=== PATIENT | female | born 1980 | race Caucasian/White ===

== ENCOUNTER 2021-08-11 14:22 | Inpatient (IN) ==
[2021-08-11] MEDS ORDERED: MoRPHine SULFATE 4 MG/ML 1 ML CARP\\VIAL IV STA (14:56)
[2021-08-11] MEDS ORDERED: SODIUM CHLORIDE 0.9% 1000ML 1,000 ML IV STA (14:56)
[2021-08-11] MEDS ORDERED: ONDANSETRON INJ 2 MG/ML 2 ML VIAL IV STA (14:56)
--- NOTE | 2021-08-11 15:00 | Emergency Department Note ---
Impression & Plan Abdominal pain Admission ED Provider Note HPI: The patient is an otherwise healthy 41-year-old female who presents the emergency department the chief complaint of epigastric abdominal pain. Patient states that she developed this pain about 2-1/2 hours prior to arrival to the ED. She states that she went out and had brunch at around noon, states that shortly after finishing her meal she developed a very severe epigastric abdominal pain. She states it does radiate from her epigastrium somewhat up the substernal portion of her chest. States she has not had any vomiting, does feel mildly nauseous, denies any diarrhea. Patient states the pain was persistent and therefore she presented to the emergency department for further evaluation. On arrival here to the ED the patient is hemodynamically stable, she is saturating well on room air, she is in mild distress secondary to epigastric pain. ROS: -GI: Epigastric abdominal pain *10 point review systems was conducted and is otherwise negative unless stated above *Outpatient medications and allergy history reviewed PE: General: Alert, NAD HEENT: Normocephalic, atraumatic, trachea midline Eyes: Extraocular eye movement is intact, no scleral erythema Pulmonary: Clear to auscultation bilaterally, no wheezing Cardio: Regular rate and rhythm GI: Abdomen is soft, moderate epigastric tenderness to palpation : No suprapubic tenderness MSK: No evidence of trauma or malformation of the extremities, no edema Skin: No evidence of rash Neuro: Alert, no focal deficits Psychiatric: Cooperative lunchroom monitor: - An order was placed for continuous cardiac monitoring - Patient was noted to be in sinus rhythm with rate of 75 EKG: Rate: 88 Rhythm: Normal sinus rhythm Intervals: Within normal limits ST changes: No ST elevation Time: 1620 Medical Decision Making: Patient presented to the emergency department with subacute onset epigastric pa in, on arrival to the ED she does have epigastric tenderness. She states this happened shortly prior to arrival to the ED. Lab work was obtained that shows a mild transaminitis, CT imaging is nonspecific, does show some cholelithiasis with some mild pericolic stranding, there is biliary ductal dilation but no clear evidence of cholecystitis. Ultrasound imaging shows evidence of cholelithiasis with common bile duct dilation to 1.1 cm, no evidence of choledocholithiasis as the distal common bile duct is obscured and not clearly visualized. Patient was given morphine and Zofran here in the ED for pain, troponin is negative, EKG does not show any ischemic changes, low suspicion for ACS. I s uspect the patient has choledocholithiasis. I did discuss the case with on-call GI, Dr. Ramez Becerra, he is in agreement for admission and for consultation. [facility] my discussion with Dr. Urena. Patient was in agreement to the above plan and she was admitted in stable condition for further management. * Diagnosis: Abdominal pain, common bile duct dilation, transaminitis * Disposition: Admission Martín Contreras DO Emergency Medicine Past Med/Surg History Medical History (Updated 08/11/21 @ 21:34 by Martín Contreras DO) Depression Surgical History (Updated 11/16/20 @ 08:52 by La Cole) History of wisdom tooth extraction Family History (Updated 11/16/20 @ 08:52 by La Cole) Mother Dyslipidemia Hypertension Father Hypertension Grandmother (Paternal) Hypertension Grandmother (Maternal) Diabetes Heart disease Denies family history of Ovarian cancer Breast cancer Colorectal cancer Social History (Updated 02/19/21 @ 14:35 by Amrita Melissa) Smoking Status: Never smoker Feels Safe at Home: Yes Allergies Allergies Allergy/AdvReac Type Severity Reaction Status Date / Time No Known Allergies Allergy Verified 08/11/21 16:51 Home Meds Home Medications Medication Instructions Recorded Confirmed sertraline 100 mg tablet (Zoloft) 100 mg PO DAILY 11/23/20 08/11/21 calcium carbonate 200 mg calcium 400 mg PO DIRECTED PRN 08/11/21 08/11/21 (500 mg) chewable tablet (Tums) norethindrone 1.5 mg-ethinyl 1 tab PO DAILY 08/11/21 08/11/21 estradiol 30 mcg(21)/iron 75 mg(7) tablet (Junel FE 1.5 (28)) Results & Data (ED) Vital Signs Vital Signs - 24 hr 08/11/21 14:36 08/11/21 14:56 08/11/21 15:40 Temperature 36.7 C Temperature Source Oral Pulse Rate 91 H 72 82 Pulse Rate [Right Finger] Pulse Rate from SpO2 Sensor 83 Pulse Rhythm Regular Regular Pulse Strength Normal Respiratory Rate 20 20 17 Respiratory Effort / Characteristics Non-Labored Spontaneous Respiratory Depth Normal Respiratory Pattern Regular Blood Pressure 143/93 H Blood Pressure [Right Arm] Blood Pressure Mean 109 Blood Pressure Mean [Right Arm] Blood Pressure Position [Right Arm] Pulse Oximetry 98 98 99 Oxygen Delivery Method Room Air Room Air Sepsis Recent Fever Within 48 Hours No Sepsis New/Unexplained Change in Mental Status N/A Sepsis Action Taken by Nursing No Action Required 08/11/21 19:17 Temperature 36.9 C Temperature Source Oral Pulse Rate Pulse Rate [Right Finger] 70 Pulse Rate from SpO2 Sensor Pulse Rhythm Pulse Strength Respiratory Rate 16 Respiratory Effort / Characteristics Non-Labored Spontaneous Respiratory Depth Normal Respiratory Pattern Regular Blood Pressure Blood Pressure [Right Arm] 151/102 H Blood Pressure Mean Blood Pressure Mean [Right Arm] 118 Blood Pressure Position [Right Arm] Lying Pulse Oximetry 98 Oxygen Delivery Method Room Air Sepsis Recent Fever Within 48 Hours Sepsis New/Unexplained Change in Mental Status Sepsis Action Taken by Nursing Laboratory Data Result diagrams: 08/11/21 15:12 08/11/21 15:12 Lab Results 08/11/21 08/11/21 08/11/21 Range/Units 15:12 15:12 15:12 WBC 9.82 (4.8-10.8) K/uL RBC 4.58 (4.2-5.4) M/uL Hgb 14.2 (12.0-16.0) g/dL Hct 40.4 (37-47) % MCV 88.2 (80-100) fL MCH 31.0 (25-34) pg MCHC 35.1 (32-36) g/dL RDW Std Deviation 39.3 (36.4-46.3) fL RDW Coeff of Effie 12.3 (11.5-14.5) % Plt Count 235 (130-400) K/uL MPV 9.8 (7.4-10.4) fL Immature Gran % (Auto) 0.2 % Neut % (Auto) 76.8 % Lymph % (Auto) 14.9 % Pepin % (Auto) 7.2 % Eos % (Auto) 0.8 % Baso % (Auto) 0.1 % Neut # (Auto) 7.54 H (1.4-6.5) K/uL Lymph # (Auto) 1.46 (1.2-3.4) K/uL Pepin # (Auto) 0.71 H (0.11-0.59) K/uL Eos # (Auto) 0.08 (0-0.5) K/uL Baso # (Auto) 0.01 (0-0.2) K/uL Immature Gran # (Auto) 0.02 (0.00-0.02) K/uL PT INR Sodium 138 (136-145) mmol/L Potassium 3.7 (3.5-5.1) mmol/L Chloride 104 (98-107) mmol/L Carbon Dioxide 23 (21-32) mmol/L Anion Gap 11.0 (3-11) BUN 10 (7-18) mg/dl Creatinine 0.74 (0.6-1.2) mg/dl Est Cr Clr Drug Dosing 95.5 ml/min Est GFR ( Amer) 118.3 ml/min Est GFR (Non-Af Amer) 102.1 ml/min BUN/Creatinine Ratio 13.3 (10-20) Glucose 134 H (70-99) mg/dl Calcium 8.9 (8.5-10.1) mg/dl Magnesium 2.2 (1.8-2.4) mg/dl Total Bilirubin 0.5 (0.2-1) mg/dl AST 133 H (15-37) U/L ALT 92 H (12-78) U/L Alkaline Phosphatase 60 (45-117) U/L Troponin I < 0.015 (0-0.045) ng/ml Total Protein 7.2 (6.4-8.2) gm/dl Albumin 3.5 (3.4-5.0) gm/dl Globulin 3.7 (2.5-4.0) gm/dl Albumin/Globulin Ratio 0.9 (0.9-2) Lipase 149 (73-393) U/L HCG, Qual Negative (Negative) Urine Color Urine Appearance (Clear) Urine pH (4.5-7.5) Ur Specific [place] (1.000-1.030) Urine Protein (Negative) Urine Glucose (UA) (Negative) Urine Ketones (Negative) Urine Blood (Negative) Urine Nitrite (Negative) Urine Bilirubin (Negative) Urine Urobilinogen (Negative) Ur Leukocyte Esterase (Negative) COVID-19 Eval Order SARS-CoV-2 (PCR) (Negative) 08/11/21 08/11/21 08/11/21 Range/Units 19:14 19:14 19:18 WBC (4.8-10.8) K/uL RBC (4.2-5.4) M/uL Hgb (12.0-16.0) g/dL Hct (37-47) % MCV (80-100) fL MCH (25-34) pg MCHC (32-36) g/dL RDW Std Deviation (36.4-46.3) fL RDW Coeff of Effie (11.5-14.5) % Plt Count (130-400) K/uL MPV (7.4-10.4) fL Immature Gran % (Auto) % Neut % (Auto) % Lymph % (Auto) % Pepin % (Auto) % Eos % (Auto) % Baso % (Auto) % Neut # (Auto) (1.4-6.5) K/uL Lymph # (Auto) (1.2-3.4) K/uL Pepin # (Auto) (0.11-0.59) K/uL Eos # (Auto) (0-0.5) K/uL Baso # (Auto) (0-0.2) K/uL Immature Gran # (Auto) (0.00-0.02) K/uL PT INR Sodium (136-145) mmol/L Potassium (3.5-5.1) mmol/L Chloride (98-107) mmol/L Carbon Dioxide (21-32) mmol/L Anion Gap (3-11) BUN (7-18) mg/dl Creatinine (0.6-1.2) mg/dl Est Cr Clr Drug Dosing ml/min Est GFR ( Amer) ml/min Est GFR (Non-Af Amer) ml/min BUN/Creatinine Ratio (10-20) Glucose (70-99) mg/dl Calcium (8.5-10.1) mg/dl Magnesium (1.8-2.4) mg/dl Total Bilirubin (0.2-1) mg/dl AST (15-37) U/L ALT (12-78) U/L Alkaline Phosphatase (45-117) U/L Troponin I (0-0.045) ng/ml Total Protein (6.4-8.2) gm/dl Albumin (3.4-5.0) gm/dl Globulin (2.5-4.0) gm/dl Albumin/Globulin Ratio (0.9-2) Lipase (73-393) U/L HCG, Qual (Negative) Urine Color Yellow Urine Appearance Clear (Clear) Urine pH 8.5 H (4.5-7.5) Ur Specific [place] 1.022 (1.000-1.030) Urine Protein Negative (Negative) Urine Glucose (UA) Negative (Negative) Urine Ketones Negative (Negative) Urine Blood Negative (Negative) Urine Nitrite Negative (Negative) Urine Bilirubin Negative (Negative) Urine Urobilinogen Negative (Negative) Ur Leukocyte Esterase Negative (Negative) COVID-19 Eval Order Covid19 at [facility] SARS-CoV-2 (PCR) POSITIVE A* (Negative) 08/11/21 Range/Units 21:11 WBC (4.8-10.8) K/uL RBC (4.2-5.4) M/uL Hgb (12.0-16.0) g/dL Hct (37-47) % MCV (80-100) fL MCH (25-34) pg MCHC (32-36) g/dL RDW Std Deviation (36.4-46.3) fL RDW Coeff of Effie (11.5-14.5) % Plt Count (130-400) K/uL MPV (7.4-10.4) fL Immature Gran % (Auto) % Neut % (Auto) % Lymph % (Auto) % Pepin % (Auto) % Eos % (Auto) % Baso % (Auto) % Neut # (Auto) (1.4-6.5) K/uL Lymph # (Auto) (1.2-3.4) K/uL Pepin # (Auto) (0.11-0.59) K/uL Eos # (Auto) (0-0.5) K/uL Baso # (Auto) (0-0.2) K/uL Immature Gran # (Auto) (0.00-0.02) K/uL PT Cancelled INR Cancelled Sodium (136-145) mmol/L Potassium (3.5-5.1) mmol/L Chloride (98-107) mmol/L Carbon Dioxide (21-32) mmol/L Anion Gap (3-11) BUN (7-18) mg/dl Creatinine (0.6-1.2) mg/dl Est Cr Clr Drug Dosing ml/min Est GFR ( Amer) ml/min Est GFR (Non-Af Amer) ml/min BUN/Creatinine Ratio (10-20) Glucose (70-99) mg/dl Calcium (8.5-10.1) mg/dl Magnesium (1.8-2.4) mg/dl Total Bilirubin (0.2-1) mg/dl AST (15-37) U/L ALT (12-78) U/L Alkaline Phosphatase (45-117) U/L Troponin I (0-0.045) ng/ml Total Protein (6.4-8.2) gm/dl Albumin (3.4-5.0) gm/dl Globulin (2.5-4.0) gm/dl Albumin/Globulin Ratio (0.9-2) Lipase (73-393) U/L HCG, Qual (Negative) Urine Color Urine Appearance (Clear) Urine pH (4.5-7.5) Ur Specific [place] (1.000-1.030) Urine Protein (Negative) Urine Glucose (UA) (Negative) Urine Ketones (Negative) Urine Blood (Negative) Urine Nitrite (Negative) Urine Bilirubin (Negative) Urine Urobilinogen (Negative) Ur Leukocyte Esterase (Negative) COVID-19 Eval Order SARS-CoV-2 (PCR) (Negative) Administered Medications Discontinued Medications Sodium Chloride (Nss 1000ml) 1,000 mls @ 999 mls/hr IV .Q1H1M STA Stop: 08/11/21 15:56 Last Infusion: 08/11/21 19:02 Dose: 0 mls/hr Documented by: [id number] Admin: 08/11/21 15:28 Dose: 999 mls/hr Documented by: [id number] Famotidine (Pepcid 20mg Iv Push) 20 mg in 5 mls @ 2.5 mls/min IV NOW STA Stop: 08/11/21 19:53 Last Admin: 08/11/21 20:21 Dose: 2.5 mls/min Documented by: [id number] Promethazine HCl (Phenergan) 12.5 mg in 50.5 mls @ 202 mls/hr IV ONE ONE Stop: 08/11/21 21:29 Last Admin: 08/11/21 21:25 Dose: 202 mls/hr Documented by: [id number] Ioversol (Optiray 320 100ml) 93 ml IV ONCE ONE Stop: 08/11/21 16:06 Last Admin: 08/11/21 16:06 Dose: 93 ml Documented by: [id number] Ketorolac Tromethamine (Ketorolac Tromethamine 15 Mg/Ml Vial) 15 mg IV NOW ONE Stop: 08/11/21 19:54 Last Admin: 08/11/21 20:20 Dose: 15 mg Documented by: [id number] Morphine Sulfate (Morphine Sulfate 4 Mg/Ml 1 Ml Carp\Vial) 4 mg IV NOW STA Stop: 08/11/21 14:57 Last Admin: 08/11/21 15:28 Dose: 4 mg Documented by: [id number] Ondansetron HCl (Ondansetron Inj 2 Mg/Ml 2 Ml Vial) 4 mg IV NOW STA Stop: 08/11/21 14:57 Last Admin: 08/11/21 15:28 Dose: 4 mg Documented by: [id number] Imaging Data Radiologist's Impression: Abdomen/Pelvis CT 08/11/21 14:56 CT OF THE ABDOMEN AND PELVIS WITH CONTRAST CLINICAL HISTORY: Epigastric pain. COMPARISON STUDY: Pelvic ultrasound January 07, 2019. TECHNIQUE: Following IV administration of 93 mL of Optiray, axial images of the abdomen and pelvis were obtained from the lung bases to the proximal femurs. Images were reviewed in the axial, sagittal, and coronal planes. IV contrast was administered without complication. Automated exposure control was utilized for the study. A dose lowering technique was utilized adhering to the principles of ALARA. CT DOSE: 353.53 mGy.cm FINDINGS: A 4 mm subpleural left lower lobe nodule is likely benign. Groundglass opacities within the lower lungs favor atelectasis. No pneumatosis, free air or portal venous gas is present. There are no hepatic lesions. Mild dilatation of the common bile duct measuring 1 cm is noted. The spleen, adrenal glands and pancreas are unremarkable. There is no peripancreatic infiltration. Gallbladder is filled with gallstones. There is trace stranding adjacent to the gallbladder. The gallbladder is not distended. No pancreatic ductal dilatation is present. There is no evidence for a bowel obstruction. The appendix is normal. Caliber and wall thickness of small large bowel are normal. Several suspected fibroids are noted. An 8.4 cm right sided fibroid has likely increased in size since ultrasound of January 07, 2019. Major vasculature is patent. There is no acute fracture or suspicious lesion within the visualized skeletal structures. There is no hydronephrosis. Sensitivity for detection of urinary calculi is diminished given excreted contrast. IMPRESSION: 1. Cholelithiasis. Trace pericholecystic stranding. However, gallbladder not distended. If right upper quadrant pain, ultrasound is recommended to exclude acute cholecystitis. 2. Mild biliary ductal dilatation. Correlation with obstructive liver function tests is recommended. 3. Several fibroids which measure up to 8.4 cm, likely increased in size since ultrasound of January 07, 2019. ACT 112: Negative or not required by law. Electronically signed by: Norm Packer M.D. 08/11/2021 4:36 PM Chest X-Ray 08/11/21 14:57 XR chest 1V portable CLINICAL HISTORY: Atypical chest pain. COMPARISON STUDY: No previous studies for comparison. FINDINGS: Lung volumes are normal. Lungs are clear. There is no pneumothorax or pleural effusion. Cardiac size is normal. Mediastinal contours are normal. There is no evidence for pulmonary edema. IMPRESSION: No acute cardiopulmonary findings. ACT 112: Negative or not required by law. Electronically signed by: Norm Packer M.D. 08/11/2021 3:25 PM Gallbladder Ultrasound 08/11/21 15:49 US gallbladder CLINICAL HISTORY: epigastric pain, elevated LFTs COMPARISON STUDY: CT of the abdomen and pelvis performed earlier today. FINDINGS: Liver morphology is normal. An 8 mm echogenic right hepatic lobe lesion favors a hemangioma. Mild biliary ductal dilatation is noted. Common bile duct measures 1.1 cm in caliber. No common bile duct calculi are identified although the distal common bile duct is obscured. Gallstones within the gallbladder are noted. Sonographic Quiroz sign could not be assessed for in this patient. The gallbladder is partially obscured by adjacent bowel. There is no pericholecystic fluid. There is no right hydronephrosis. Pancreas is unremarkable by sonography. IMPRESSION: 1. Cholelithiasis. No convincing evidence for acute cholecystitis however a hepatobiliary scan could be obtained if persistent clinical suspicion. 2. Mild dilatation of the common bile duct. No common bile duct calculi identified although distal common bile duct obscured. ACT 112: Negative or not required by law. Electronically signed by: Norm Packer M.D. 08/11/2021 6:07 PM Discharge Plan Visit Data Chief Complaint: Abdominal Pain Stated Complaint: AB PAIN ED Provider: Martín Contreras Discharge Problem: Abdominal pain Forms Stand Alone Forms: [facility] Prescriptions Prescriptions: No Action sertraline [Zoloft] 100 mg tablet 100 mg PO DAILY RF: 0 norethindrone-e.estradiol-iron [June FE 1.5/30 (28)] 1.5 mg-30 mcg (21)/75 mg (7) tablet 1 tab PO DAILY RF: 0 calcium carbonate [Tums] 200 mg calcium (500 mg) Tablet,Chewable 400 mg PO DIRECTED PRN (Reason: HEARTBURN/INDIGESTION) RF: 0 Referrals Referrals: Manasa Dickinson DO [Primary Care Provider] - Discharge Problem: Abdominal pain Qualifiers: Abdominal location: upper abdomen, unspecified Qualified Code(s): R10.10 - Upper abdominal pain, unspecified
[2021-08-11 15:22] LABS: Basophils # (auto) 0.01 K/uL (0-0.2); Basophils % (auto) 0.1 %; Eosinophils # (auto) 0.08 K/uL (0-0.5); Eosinophils % (auto) 0.8 %; Hematocrit (blood only) 40.4 % (37-47); Hemoglobin 14.2 g/dL (12.0-16.0); Immature Granulocytes # (auto) 0.02 K/uL (0.00-0.02); Immature Granulocytes % (auto) 0.2 %; Lymphocytes # (auto) 1.46 K/uL (1.2-3.4); Lymphocytes % (auto) 14.9 %; Mean Corpuscular Hgb Conc 35.1 g/dL (32-36); Mean Corpuscular Volume 88.2 fL (80-100); Mean Platelet Volume 9.8 fL (7.4-10.4); Monocytes # (auto) 0.71 K/uL (0.11-0.59); Monocytes % (auto) 7.2 %; Neutrophils # (auto) 7.54 K/uL (1.4-6.5); Neutrophils % (auto) 76.8 %; Platelet Count 235 K/uL (130-400); RDW Coefficient of Variation 12.3 % (11.5-14.5); RDW Standard Deviation 39.3 fL (36.4-46.3); Red Blood Count 4.58 M/uL (4.2-5.4); White Blood Count 9.82 K/uL (4.8-10.8)
--- NOTE | 2021-08-11 15:26 | XRay Report ---
XR chest 1V portable CLINICAL HISTORY: Atypical chest pain. COMPARISON STUDY: No previous studies for comparison. FINDINGS: Lung volumes are normal. Lungs are clear. There is no pneumothorax or pleural effusion. Car diac size is normal. Mediastinal contours are normal. There is no evidence for pulmonary edema. IMPRESSION: No acute cardiopulmonary findings. ACT 112: Negative or not required by law. Electronically signed by: Norm Packer M.D. 08/11/2021 3:25 PM
[2021-08-11 15:39] LABS: Alanine Aminotransferase 92 U/L (12-78); Albumin Level 3.5 gm/dl (3.4-5.0); Aspartate Aminotransferase 133 U/L (15-37); BUN Creatinine Ratio 13.3 (10-20); Blood Urea Nitrogen 10 mg/dl (7-18); Calcium 8.9 mg/dl (8.5-10.1); Carbon Dioxide 23 mmol/L (21-32); Chloride 104 mmol/L (98-107); Creatinine Clr Calc Pharmacy 95.5 ml/min; Est GFR (African American) 118.3 ml/min; Est GFR (Non-African American) 102.1 ml/min; Glucose 134 mg/dl (70-99); Lipase 149 U/L (73-393); Potassium 3.7 mmol/L (3.5-5.1); Sodium 138 mmol/L (136-145)
[2021-08-11 15:43] LABS: Albumin Globulin Ratio 0.9 (0.9-2); Alkaline Phosphatase 60 U/L (45-117); Bilirubin,Total 0.5 mg/dl (0.2-1); Globulin 3.7 gm/dl (2.5-4.0); Total Protein 7.2 gm/dl (6.4-8.2); Troponin I < 0.015 ng/ml (0-0.045)
[2021-08-11 16:00] LABS: Pregnancy Test, Serum Negative (Negative)
[2021-08-11] MEDS ORDERED: OPTIRAY 320 100ml IV ONE (16:05)
--- NOTE | 2021-08-11 16:38 | CT Scan Report ---
CT OF THE ABDOMEN AND PELVIS WITH CONTRAST CLINICAL HISTORY: Epigastric pain. COMPARISON STUDY: Pelvic ultrasound January 07, 2019. TECHNIQUE: Following IV administration of 93 mL of Optiray, axial images of the abdomen and pelvis we re obtained from the lung bases to the proximal femurs. Images were reviewed in the axial, sagittal, and coronal planes. IV contrast was administered without complication. Automated exposure control wa s utilized for the study. A dose lowering technique was utilized adhering to the principles of ALARA . CT DOSE: 353.53 mGy.cm FINDINGS: A 4 mm subpleural left lower lobe nodule is likely benign. Groundglass opacities within the lower lungs favor atelectasis. No pneumatosis, free air or portal venous gas is present. There are n o hepatic lesions. Mild dilatation of the common bile duct measuring 1 cm is noted. The spleen, adren al glands and pancreas are unremarkable. There is no peripancreatic infiltration. Gallbladder is fill ed with gallstones. There is trace stranding adjacent to the gallbladder. The gallbladder is not dist ended. No pancreatic ductal dilatation is present. There is no evidence for a bowel obstruction. The appendix is normal. Caliber and wall thickness of small large bowel are normal. Several suspected fib roids are noted. An 8.4 cm right sided fibroid has likely increased in size since ultrasound of January 07, 2019. Major vasculature is patent. There is no acute fracture or suspicious lesion within the vis ualized skeletal structures. There is no hydronephrosis. Sensitivity for detection of urinary calculi is diminished given excreted contrast. IMPRESSION: 1. Cholelithiasis. Trace pericholecystic stranding. However, gallbladder not distended. If right uppe r quadrant pain, ultrasound is recommended to exclude acute cholecystitis. 2. Mild biliary ductal dilatation. Correlation with obstructive liver function tests is recommended. 3. Several fibroids which measure up to 8.4 cm, likely increased in size since ultrasound of January 07, 2019. ACT 112: Negative or not required by law. Electronically signed by: Norm Packer M.D. 08/11/2021 4:36 PM
--- NOTE | 2021-08-11 18:09 | Ultrasound Report ---
US gallbladder CLINICAL HISTORY: epigastric pain, elevated LFTs COMPARISON STUDY: CT of the abdomen and pelvis performed earlier today. FINDINGS: Liver morphology is normal. An 8 mm echogenic right hepatic lobe lesion favors a hemangioma . Mild biliary ductal dilatation is noted. Common bile duct measures 1.1 cm in caliber. No common jennifer e duct calculi are identified although the distal common bile duct is obscured. Gallstones within the gallbladder are noted. Sonographic Quiroz sign could not be assessed for in this patient. The gallbl adder is partially obscured by adjacent bowel. There is no pericholecystic fluid. There is no right h ydronephrosis. Pancreas is unremarkable by sonography. IMPRESSION: 1. Cholelithiasis. No convincing evidence for acute cholecystitis however a hepatobiliary scan could be obtained if persistent clinical suspicion. 2. Mild dilatation of the common bile duct. No common bile duct calculi identified although distal co mmon bile duct obscured. ACT 112: Negative or not required by law. Electronically signed by: Norm Packer M.D. 08/11/2021 6:07 PM
[2021-08-11 19:42] LABS: Appearance Urine Clear (Clear); Bilirubin Urine Negative (Negative); Blood Urine Negative (Negative); Color Urine Yellow; Glucose Urine UA Negative (Negative); Ketones Urine Negative (Negative); Leukocyte Esterase Urine Negative (Negative); Nitrite Urine Negative (Negative); Protein Urine Negative (Negative); Specific Gravity Urine 1.022 (1.000-1.030); Urobilinogen Urine Negative (Negative); pH Urine 8.5 (4.5-7.5)
[2021-08-11] MEDS ORDERED: DOXYCYCLINE HYCLATE 100 MG in DEXTROSE 5% 100 ML IV STA (19:51)
--- NOTE | 2021-08-11 19:51 | History & Physical Report ---
Date of Service August 11, 2021 Assessment & Plan (1) Pneumonia due to COVID-19 virus: Plan: Atypical pneumonia/superimposed bacterial infection No sepsis for now. Patient oxygenating well. Biliary colic, possible choledocholithiasis Mood disorder, stable Hyperglycemia rule out DM OBS GMF Doxycycline for COVID-19 illness with superimposed bacterial infection GI consult Re: Biliary colic possible choledocholithiasis (ER provider already in touch with Dr. Regalado. N.p.o. status recommended after midnight. Patient COVID-19 illness may impact scheduling of procedure as patient COVID-19 test still pending at time ER provider called GI specialist.) Check hemoglobin A1c DVT prophylaxis. Lovenox subcu Full code Text document was generated using [email or web address] voice recognition software. It may contain grammatical or spelling errors. Kindly contact undersigned for clarification of any documentation item in question. History of Present Illness Chief Complaint: Abdominal pain Primary Care Provider: Manasa Dickinson DO History obtained from patient, family, and records. Medical history significant for mood disorder. Almost 2 weeks ago, patient noted cough symptoms later productive of yellow sputum along with headache, anosmia, ageusia, flulike symptoms. No unusual shortness of breath as per patient. Sick COVID-19 contacts at home. Patient completed COVID-19 vaccination. Home COVID-19 test was positive. Patient isolated at home along with . Cough symptoms improving although still produ ctive of yellow sputum. Few days ago, patient noted transient achy epigastric discomfort noted after a meal. No fever, no chills. After a heavy lunch today, patient noted recurrence of achy somewhat burning epigastric discomfort radiating to her chest with nausea symptoms. No fever, no chills. Patient consulted ER for evaluation. 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 Allergies Allergy/AdvReac Type Severity Reaction Status Date / Time No Known Allergies Allergy Verified 08/11/21 16:51 Home Medications Medication Instructions Recorded Confirmed Type sertraline 100 mg tablet (Zoloft) 100 mg PO DAILY 11/23/20 08/11/21 History calcium carbonate 200 mg calcium 400 mg PO DIRECTED PRN 08/11/21 08/11/21 History (500 mg) chewable tablet (Tums) norethindrone 1.5 mg-ethinyl 1 tab PO DAILY 08/11/21 08/11/21 History estradiol 30 mcg(21)/iron 75 mg(7) tablet ( (28)) Past Med/Surg History Medical History (Updated 08/12/21 @ 04:16 by Gurdeep Zhang MD) Depression Surgical History (Updated 11/16/20 @ 08:52 by La Cole) History of wisdom tooth extraction Family History (Updated 11/16/20 @ 08:52 by La Cole) Mother Dyslipidemia Hypertension Father Hypertension Grandmother (Paternal) Hypertension Grandmother (Maternal) Diabetes Heart disease Denies family history of Ovarian cancer Breast cancer Colorectal cancer Social History (Updated 02/19/21 @ 14:35 by Amrita Melissa) Smoking Status: Never smoker Do You Dip or Chew Tobacco: No; Hx Alcohol Use: Yes Hx Substance Use: No Preferred Language: Arabic Communication Ability: Effective Box Toe Cementer Required: No Beliefs That Will Affect Care: None Current Living Situation: Significant Other Other Information That Helps Us Care for You: No Feels Safe at Home: Yes Safety Concerns: Feels Safe At This Time Assistive Devices: Glasses Review of Systems Review of Systems: As per HPI, all 10 systems reviewed, all other ROS negative Physical Exam Physical Exam: GENERAL: Slightly uncomfortable, no respiratory distress SKIN: Normal color, warm HEENT: Bespectacled, [place] palpebral conjunctivae, no ptosis, dry buccal mucosa NECK : Supple, no tenderness CHEST : CTA, no tenderness HEART : RRR, no obvious murmurs ABDOMEN: Some distention, epigastric tenderness EXTREMITIES : No LE swelling/tenderness, no other conspicuous deformities noted NEUROLOGIC : Coherent, no facial asymmetry, no other gross focality Results & Data Results & Data ([facility]) Vital Signs (Past 12 Hours) Vital Signs Temp Pulse Pulse Resp BP BP Pulse Ox 08/11/21 19:17 36.9 C 70 16 151/102 H 98 08/11/21 15:40 82 17 99 08/11/21 14:56 72 20 98 08/11/21 14:36 36.7 C 91 H 20 143/93 H 98 Laboratory Results Laboratory Results WBC 9.82 K/uL (4.8-10.8) 08/11/21 15:12 RBC 4.58 M/uL (4.2-5.4) 08/11/21 15:12 Hgb 14.2 g/dL (12.0-16.0) 08/11/21 15:12 Hct 40.4 % (37-47) 08/11/21 15:12 MCV 88.2 fL (80-100) 08/11/21 15:12 MCH 31.0 pg (25-34) 08/11/21 15:12 MCHC 35.1 g/dL (32-36) 08/11/21 15:12 RDW Std Deviation 39.3 fL (36.4-46.3) 08/11/21 15:12 RDW Coeff of Effie 12.3 % (11.5-14.5) 08/11/21 15:12 Plt Count 235 K/uL (130-400) 08/11/21 15:12 MPV 9.8 fL (7.4-10.4) 08/11/21 15:12 Immature Gran % (Auto) 0.2 % 08/11/21 15:12 Neut % (Auto) 76.8 % 08/11/21 15:12 Lymph % (Auto) 14.9 % 08/11/21 15:12 [place] % (Auto) 7.2 % 08/11/21 15:12 Eos % (Auto) 0.8 % 08/11/21 15:12 Baso % (Auto) 0.1 % 08/11/21 15:12 Neut # (Auto) 7.54 K/uL (1.4-6.5) H 08/11/21 15:12 Lymph # (Auto) 1.46 K/uL (1.2-3.4) 08/11/21 15:12 [place] # (Auto) 0.71 K/uL (0.11-0.59) H 08/11/21 15:12 Eos # (Auto) 0.08 K/uL (0-0.5) 08/11/21 15:12 Baso # (Auto) 0.01 K/uL (0-0.2) 08/11/21 15:12 Immature Gran # (Auto) 0.02 K/uL (0.00-0.02) 08/11/21 15:12 Sodium 138 mmol/L (136-145) 08/11/21 15:12 Potassium 3.7 mmol/L (3.5-5.1) 08/11/21 15:12 Chloride 104 mmol/L (98-107) 08/11/21 15:12 Carbon Dioxide 23 mmol/L (21-32) 08/11/21 15:12 Anion Gap 11.0 (3-11) 08/11/21 15:12 BUN 10 mg/dl (7-18) 08/11/21 15:12 Creatinine 0.74 mg/dl (0.6-1.2) 08/11/21 15:12 Est Cr Clr Drug Dosing 95.5 ml/min 08/11/21 15:12 Est GFR ( Amer) 118.3 ml/min 08/11/21 15:12 Est GFR (Non-Af Amer) 102.1 ml/min 08/11/21 15:12 BUN/Creatinine Ratio 13.3 (10-20) 08/11/21 15:12 Glucose 134 mg/dl (70-99) H 08/11/21 15:12 Calcium 8.9 mg/dl (8.5-10.1) 08/11/21 15:12 Total Bilirubin 0.5 mg/dl (0.2-1) 08/11/21 15:12 AST 133 U/L (15-37) H 08/11/21 15:12 ALT 92 U/L (12-78) H 08/11/21 15:12 Alkaline Phosphatase 60 U/L (45-117) 08/11/21 15:12 Troponin I < 0.015 ng/ml (0-0.045) 08/11/21 15:12 Total Protein 7.2 gm/dl (6.4-8.2) 08/11/21 15:12 Albumin 3.5 gm/dl (3.4-5.0) 08/11/21 15:12 Globulin 3.7 gm/dl (2.5-4.0) 08/11/21 15:12 Albumin/Globulin Ratio 0.9 (0.9-2) 08/11/21 15:12 Lipase 149 U/L (73-393) 08/11/21 15:12 HCG, Qual Negative (Negative) 08/11/21 15:12 Urine Color Yellow 08/11/21 19:18 Urine Appearance Clear (Clear) 08/11/21 19:18 Urine pH 8.5 (4.5-7.5) H 08/11/21 19:18 Ur Specific [place] 1.022 (1.000-1.030) 08/11/21 19:18 Urine Protein Negative (Negative) 08/11/21 19:18 Urine Glucose (UA) Negative (Negative) 08/11/21 19:18 Urine Ketones Negative (Negative) 08/11/21 19:18 Urine Blood Negative (Negative) 08/11/21 19:18 Urine Nitrite Negative (Negative) 08/11/21 19:18 Urine Bilirubin Negative (Negative) 08/11/21 19:18 Urine Urobilinogen Negative (Negative) 08/11/21 19:18 Ur Leukocyte Esterase Negative (Negative) 08/11/21 19:18 COVID-19 Eval Order Covid19 at [facility] 08/11/21 19:14 Impressions Abdomen/Pelvis CT 08/11/21 14:56 CT OF THE ABDOMEN AND PELVIS WITH CONTRAST CLINICAL HISTORY: Epigastric pain. COMPARISON STUDY: Pelvic ultrasound January 07, 2019. TECHNIQUE: Following IV administration of 93 mL of Optiray, axial images of the abdomen and pelvis were obtained from the lung bases to the proximal femurs. Images were reviewed in the axial, sagittal, and coronal planes. IV contrast was administered without complication. Automated exposure control was utilized for the study. A dose lowering technique was utilized adhering to the principles of ALARA. CT DOSE: 353.53 mGy.cm FINDINGS: A 4 mm subpleural left lower lobe nodule is likely benign. Groundglass opacities within the lower lungs favor atelectasis. No pneumatosis, free air or portal venous gas is present. There are no hepatic lesions. Mild dilatation of the common bile duct measuring 1 cm is noted. The spleen, adrenal glands and pancreas are unremarkable. There is no peripancreatic infiltration. Gallbladder is filled with gallstones. There is trace stranding adjacent to the gallbladder. The gallbladder is not distended. No pancreatic ductal dilatation is present. There is no evidence for a bowel obstruction. The appendix is normal. Caliber and wall thickness of small large bowel are normal. Several suspected fibroids are noted. An 8.4 cm right sided fibroid has likely increased in size since ultrasound of January 07, 2019. Major vasculature is patent. There is no acute fracture or suspicious lesion within the visualized skeletal structures. There is no hydronephrosis. Sensitivity for detection of urinary calculi is diminished given excreted contrast. IMPRESSION: 1. Cholelithiasis. Trace pericholecystic stranding. However, gallbladder not distended. If right upper quadrant pain, ultrasound is recommended to exclude acute cholecystitis. 2. Mild biliary ductal dilatation. Correlation with obstructive liver function tests is recommended. 3. Several fibroids which measure up to 8.4 cm, likely increased in size since ultrasound of January 07, 2019. ACT 112: Negative or not required by law. Electronically signed by: Norm Packer M.D. 08/11/2021 4:36 PM Chest X-Ray 08/11/21 14:57 XR chest 1V portable CLINICAL HISTORY: Atypical chest pain. COMPARISON STUDY: No previous studies for comparison. FINDINGS: Lung volumes are normal. Lungs are clear. There is no pneumothorax or pleural effusion. Cardiac size is normal. Mediastinal contours are normal. There is no evidence for pulmonary edema. IMPRESSION: No acute cardiopulmonary findings. ACT 112: Negative or not required by law. Electronically signed by: Norm Packer M.D. 08/11/2021 3:25 PM Gallbladder Ultrasound 08/11/21 15:49 US gallbladder CLINICAL HISTORY: epigastric pain, elevated LFTs COMPARISON STUDY: CT of the abdomen and pelvis performed earlier today. FINDINGS: Liver morphology is normal. An 8 mm echogenic right hepatic lobe lesion favors a hemangioma. Mild biliary ductal dilatation is noted. Common bile duct measures 1.1 cm in caliber. No common bile duct calculi are identified although the distal common bile duct is obscured. Gallstones within the gal lbladder are noted. Sonographic Quiroz sign could not be assessed for in this patient. The gallbladder is partially obscured by adjacent bowel. There is no pericholecystic fluid. There is no right hydronephrosis. Pancreas is unremarkable by sonography. IMPRESSION: 1. Cholelithiasis. No convincing evidence for acute cholecystitis however a hepatobiliary scan could be obtained if persistent clinical suspicion. 2. Mild dilatation of the common bile duct. No common bile duct calculi identified although distal common bile duct obscured. ACT 112: Negative or not required by law. Electronically signed by: Norm Packer M.D. 08/11/2021 6:07 PM Diagnostic Findings EKG as per my interpretation: Rate 90, NSR, normal axis, incomplete RBBB, no ischemia
[2021-08-11] MEDS ORDERED: FAMOTIDINE 20MG IV PUSH 20 MG/5 ML SYR IV STA (19:52)
[2021-08-11] MEDS ORDERED: PROMETHAZINE HCL 12.5 MG in SODIUM CHLORIDE 0.9% 50 ML IV STA (19:53)
[2021-08-11] MEDS ORDERED: KETOROLAC TROMETHAMINE 15 MG/ML VIAL IV ONE (19:53)
[2021-08-11] MEDS ORDERED: ALBUTEROL HFA 8 GM INHALER INH PRN (20:49)
[2021-08-11 21:07] LABS: Magnesium 2.2 mg/dl (1.8-2.4)
[2021-08-11] MEDS ORDERED: PROMETHAZINE 12.5 MG/50.5 ML BAG IV ONE (21:15)
[2021-08-11] MEDS ORDERED: MoRPHine SULFATE 4 MG/ML 1 ML CARP\\VIAL IV PRN (22:51)
[2021-08-11] MEDS ORDERED: ACETAMINOPHEN 325 MG TAB PO PRN (22:51)
[2021-08-11] MEDS ORDERED: traMADol HCL 50 MG TABLET PO PRN (22:51)
[2021-08-11] MEDS ORDERED: LORazepam 0.25 MG/0.5 ML VIAL IV PRN (22:51)
[2021-08-11] MEDS ORDERED: PROMETHAZINE HCL 12.5 MG in SODIUM CHLORIDE 0.9% 50 ML IV PRN (22:51)
[2021-08-12] MEDS ORDERED: POTASSIUM CHLORIDE 40 MEQ in SODIUM CHLORIDE 0.9% 1000ML 1,000 ML IV SCH
[2021-08-12 06:36] LABS: Basophils # (auto) 0.01 K/uL (0-0.2); Basophils % (auto) 0.2 %; Eosinophils # (auto) 0.27 K/uL (0-0.5); Eosinophils % (auto) 4.3 %; Hematocrit (blood only) 40.9 % (37-47); Hemoglobin 13.9 g/dL (12.0-16.0); Immature Granulocytes # (auto) 0.01 K/uL (0.00-0.02); Immature Granulocytes % (auto) 0.2 %; Lymphocytes # (auto) 2.56 K/uL (1.2-3.4); Lymphocytes % (auto) 40.3 %; Mean Corpuscular Hemoglobin 30.7 pg (25-34); Mean Corpuscular Volume 90.3 fL (80-100); Mean Platelet Volume 10.4 fL (7.4-10.4); Monocytes # (auto) 0.52 K/uL (0.11-0.59); Monocytes % (auto) 8.2 %; Neutrophils # (auto) 2.98 K/uL (1.4-6.5); Neutrophils % (auto) 46.8 %; Platelet Count 216 K/uL (130-400); RDW Coefficient of Variation 12.4 % (11.5-14.5); RDW Standard Deviation 41.2 fL (36.4-46.3); Red Blood Count 4.53 M/uL (4.2-5.4); White Blood Count 6.35 K/uL (4.8-10.8)
[2021-08-12 07:03] LABS: Albumin Level 2.9 gm/dl (3.4-5.0); BUN Creatinine Ratio 9.8 (10-20); Calcium 8.7 mg/dl (8.5-10.1); Creatinine Clr Calc Pharmacy 99.6 ml/min; Est GFR (African American) 124.4 ml/min; Est GFR (Non-African American) 107.3 ml/min
[2021-08-12 07:05] LABS: Albumin Globulin Ratio 0.8 (0.9-2); Bilirubin,Total 0.4 mg/dl (0.2-1); Globulin 3.7 gm/dl (2.5-4.0); Total Protein 6.6 gm/dl (6.4-8.2)
[2021-08-12 07:38] LABS: Estimated Average Glucose 100 mg/dl; Hemoglobin A1C 5.1 % (4.5-5.6)
[2021-08-12] MEDS ORDERED: SERTRALINE HCL 100 MG TABLET PO SCH (09:00)
[2021-08-12] MEDS: ENOXAPARIN INJ 40 MG/0.4 ML SYR SQ SCH ×2 (09:09→11:21)
[2021-08-12] MEDS: DOXYCYCLINE HYCLATE 100 MG CAP PO SCH ×2 (09:09→20:51)
[2021-08-12] MEDS ORDERED: Nursing to Pharmacy Communication SCH (10:00)
--- NOTE | 2021-08-12 12:05 | Electrocardiogram Report ---
Test Reason : Blood Pressure : / mmHG Vent. Rate : 088 BPM Atrial Rate : 088 BPM P-R Int : 162 ms QRS Dur : 082 ms QT Int : 368 ms P-R-T Axes : 060 028 042 degrees QTc Int : 445 ms Normal sinus rhythm Left atrial enlargement RSR' or QR pattern in V1 suggests right ventricular conduction delay Borderline ECG No previous ECGs available Confirmed by Sergio Ho ([id number]) on 08/12/2021 12:05:09 PM Referred By: REFERRED SELF Confirmed By:Sergio Ho
--- NOTE | 2021-08-12 14:12 | Gastrointestinal Consultation ---
Date of Consultation August 12, 2021 Assessment & Plan (1) Abdominal pain: This a 41-year-old female with history of Covid infection, now admitted with abdominal pain and GI consulted for such. Symptoms seem suspicious for biliary colic, and imaging suggestive of cholelithiasis, perhaps mild jennifer dil, and though LFTs initially mildly elevated, have trended down and near normal at present. Abd soft, nontender; no signs/symptoms of cholangitis/sepsis. - Agree with supportive care including hydration, analgesia, antiemetics PRN - Pt may benefit from further w/u such as EUS/ERCP; this may be better suited for OP setting - Could consider general surgery consult for cholecystectomy - Trend daily LFTs, CBC - Can try clear liquid diet as tolerated Thank you for allowing us to participate in the care of this patient. Please call with any acute changes, questions or concerns. Please see addendum below with additional recommendation from my supervising physician. History of Present Illness Reason for Consultation: abd pain Requesting Physician: Dr. Zhang Attending Physician: Laura Smith MD History of Present Illness This is a 41 y/o female with PMhx mood disorder, admitted yesterday after presenting with abdominal pain. Pain began several days ago, has had intermittent episodes of severe epigastric/substernal pain, lasting approximately 40 minutes at a time, and can be precipitated by a meal. Recently had positive Covid, she has been isolating at home, initially had cough symptoms with yellow sputum, headache and flulike symptoms, however, this seems to be improving. On arrival, labs notable for mild transaminitis with AST 133, ALT 92, with normal T bili and alk phos, lipase, no leukocytosis or anemia. CTAP notable for cholelithiasis, mild bill dil. US ABD w/ cholelithiasis, mild jennifer dil. Overnight ALT has normalized, AST near normal at 43. At present, abdominal discomfort seems to be improved. Afebrile, no tachycardia or hypotension. No nausea vomiting, hematemesis, melena or hematochezia, dark urine or moise stools, fevers or chills, chest pain or shortness of breath. Has been using some occasional Tylenol and ibuprofen for her Covid symptoms, though not excessive doses. Drinks alcohol socially, no tobacco use. Allergies Allergy/AdvReac Type Severity Reaction Status Date / Time No Known Allergies Allergy Verified 08/11/21 16:51 Home Medications Medication Instructions Recorded Confirmed Type sertraline 100 mg tablet (Zoloft) 100 mg PO DAILY 11/23/20 08/11/21 History calcium carbonate 200 mg calcium 400 mg PO DIRECTED PRN 08/11/21 08/11/21 History (500 mg) chewable tablet (Tums) norethindrone 1.5 mg-ethinyl 1 tab PO DAILY 08/11/21 08/11/21 History estradiol 30 mcg(21)/iron 75 mg(7) tablet (Junel FE 1.03/03 (28)) Patient History Medical History (Updated 08/12/21 @ 04:16 by Gurdeep Zhang MD) Depression Surgical History (Updated 11/16/20 @ 08:52 by La Cole) History of wisdom tooth extraction Family History (Updated 11/16/20 @ 08:52 by La Cole) Mother Dyslipidemia Hypertension Father Hypertension Grandmother (Paternal) Hypertension Grandmother (Maternal) Diabetes Heart disease Denies family history of Ovarian cancer Breast cancer Colorectal cancer Social History (Updated 02/19/21 @ 14:35 by Amrita Melissa) Smoking Status: Never smoker Do You Dip or Chew Tobacco: No; Hx Alcohol Use: Yes Hx Substance Use: No Preferred Language: Cymraes Communication Ability: Effective Manager Of Finance Required: No Beliefs That Will Affect Care: None Current Living Situation: Significant Other Other Information That Helps Us Care for You: No Feels Safe at Home: Yes Safety Concerns: Feels Safe At This Time Assistive Devices: None Review of Systems Review of Systems: All systems reviewed & are unremarkable except as noted in HPI & below Physical Exam Constitutional: WD/WN, vitals as above Eyes: PERRL, conjunctivae normal, anicteric sclerae Respiratory: normal respiratory effort, lungs clear to auscultation Cardiovascular: RRR, no murmur, no edema Gastrointestinal (Abdomen): normal bowel sounds, soft, nontender, no hepatosplenomegaly Skin: no rashes, warm and dry Results & Data ([facility]) Vital Signs (Past 12 Hours) Vital Signs Temp Pulse Resp BP Pulse Ox 08/12/21 09:04 36.8 C 79 14 112/72 96 Laboratory Results 08/12/21 08/12/21 08/11/21 Range/Units 05:30 05:30 21:11 WBC 6.35 (4.8-10.8) K/uL RBC 4.53 (4.2-5.4) M/uL Hgb 13.9 (12.0-16.0) g/dL Hct 40.9 (37-47) % MCV 90.3 (80-100) fL MCH 30.7 (25-34) pg MCHC 34.0 (32-36) g/dL RDW Std Deviation 41.2 (36.4-46.3) fL RDW Coeff of Effie 12.4 (11.5-14.5) % Plt Count 216 (130-400) K/uL MPV 10.4 (7.4-10.4) fL Immature Gran % (Auto) 0.2 % Neut % (Auto) 46.8 % Lymph % (Auto) 40.3 % [place] % (Auto) 8.2 % Eos % (Auto) 4.3 % Baso % (Auto) 0.2 % Neut # (Auto) 2.98 (1.4-6.5) K/uL Lymph # (Auto) 2.56 (1.2-3.4) K/uL [place] # (Auto) 0.52 (0.11-0.59) K/uL Eos # (Auto) 0.27 (0-0.5) K/uL Baso # (Auto) 0.01 (0-0.2) K/uL Immature Gran # (Auto) 0.01 (0.00-0.02) K/uL PT Cancelled INR Cancelled Sodium 140 (136-145) mmol/L Potassium 4.0 (3.5-5.1) mmol/L Chloride 110 H (98-107) mmol/L Carbon Dioxide 24 (21-32) mmol/L Anion Gap 6.0 (3-11) BUN 7 (7-18) mg/dl Creatinine 0.71 (0.6-1.2) mg/dl Est Cr Clr Drug Dosing 99.6 ml/min Est GFR ( Amer) 124.4 ml/min Est GFR (Non-Af Amer) 107.3 ml/min BUN/Creatinine Ratio 9.8 L (10-20) Glucose 72 (70-99) mg/dl Estimat Average Glucose mg/dl Hemoglobin A1c (4.5-5.6) % Calcium 8.7 (8.5-10.1) mg/dl Magnesium (1.8-2.4) mg/dl Total Bilirubin 0.4 (0.2-1) mg/dl AST 43 H (15-37) U/L ALT 72 (12-78) U/L Alkaline Phosphatase 50 (45-117) U/L Troponin I (0-0.045) ng/ml Total Protein 6.6 (6.4-8.2) gm/dl Albumin 2.9 L (3.4-5.0) gm/dl Globulin 3.7 (2.5-4.0) gm/dl Albumin/Globulin Ratio 0.8 L (0.9-2) Lipase (73-393) U/L HCG, Qual (Negative) Urine Color Urine Appearance (Clear) Urine pH (4.5-7.5) Ur Specific [place] (1.000-1.030) Urine Protein (Negative) Urine Glucose (UA) (Negative) Urine Ketones (Negative) Urine Blood (Negative) Urine Nitrite (Negative) Urine Bilirubin (Negative) Urine Urobilinogen (Negative) Ur Leukocyte Esterase (Negative) COVID-19 Eval Order SARS-CoV-2 (PCR) (Negative) 08/11/21 08/11/21 08/11/21 Range/Units 19:18 19:14 19:14 WBC (4.8-10.8) K/uL RBC (4.2-5.4) M/uL Hgb (12.0-16.0) g/dL Hct (37-47) % MCV (80-100) fL MCH (25-34) pg MCHC (32-36) g/dL RDW Std Deviation (36.4-46.3) fL RDW Coeff of Effie (11.5-14.5) % Plt Count (130-400) K/uL MPV (7.4-10.4) fL Immature Gran % (Auto) % Neut % (Auto) % Lymph % (Auto) % [place] % (Auto) % Eos % (Auto) % Baso % (Auto) % Neut # (Auto) (1.4-6.5) K/uL Lymph # (Auto) (1.2-3.4) K/uL [place] # (Auto) (0.11-0.59) K/uL Eos # (Auto) (0-0.5) K/uL Baso # (Auto) (0-0.2) K/uL Immature Gran # (Auto) (0.00-0.02) K/uL PT INR Sodium (136-145) mmol/L Potassium (3.5-5.1) mmol/L Chloride (98-107) mmol/L Carbon Dioxide (21-32) mmol/L Anion Gap (3-11) BUN (7-18) mg/dl Creatinine (0.6-1.2) mg/dl Est Cr Clr Drug Dosing ml/min Est GFR ( Amer) ml/min Est GFR (Non-Af Amer) ml/min BUN/Creatinine Ratio (10-20) Glucose (70-99) mg/dl Estimat Average Glucose mg/dl Hemoglobin A1c (4.5-5.6) % Calcium (8.5-10.1) mg/dl Magnesium (1.8-2.4) mg/dl Total Bilirubin (0.2-1) mg/dl AST (15-37) U/L ALT (12-78) U/L Alkaline Phosphatase (45-117) U/L Troponin I (0-0.045) ng/ml Total Protein (6.4-8.2) gm/dl Albumin (3.4-5.0) gm/dl Globulin (2.5-4.0) gm/dl Albumin/Globulin Ratio (0.9-2) Lipase (73-393) U/L HCG, Qual (Negative) Urine Color Yellow Urine Appearance Clear (Clear) Urine pH 8.5 H (4.5-7.5) Ur Specific [place] 1.022 (1.000-1.030) Urine Protein Negative (Negative) Urine Glucose (UA) Negative (Negative) Urine Ketones Negative (Negative) Urine Blood Negative (Negative) Urine Nitrite Negative (Negative) Urine Bilirubin Negative (Negative) Urine Urobilinogen Negative (Negative) Ur Leukocyte Esterase Negative (Negative) COVID-19 Eval Order Covid19 at [facility] [place] SARS-CoV-2 (PCR) POSITIVE A* (Negative) 08/11/21 08/11/21 08/11/21 Range/Units 15:12 15:12 15:12 WBC (4.8-10.8) K/uL RBC (4.2-5.4) M/uL Hgb (12.0-16.0) g/dL Hct (37-47) % MCV (80-100) fL MCH (25-34) pg MCHC (32-36) g/dL RDW Std Deviation (36.4-46.3) fL RDW Coeff of Effie (11.5-14.5) % Plt Count (130-400) K/uL MPV (7.4-10.4) fL Immature Gran % (Auto) % Neut % (Auto) % Lymph % (Auto) % [place] % (Auto) % Eos % (Auto) % Baso % (Auto) % Neut # (Auto) (1.4-6.5) K/uL Lymph # (Auto) (1.2-3.4) K/uL [place] # (Auto) (0.11-0.59) K/uL Eos # (Auto) (0-0.5) K/uL Baso # (Auto) (0-0.2) K/uL Immature Gran # (Auto) (0.00-0.02) K/uL PT INR Sodium 138 (136-145) mmol/L Potassium 3.7 (3.5-5.1) mmol/L Chloride 104 (98-107) mmol/L Carbon Dioxide 23 (21-32) mmol/L Anion Gap 11.0 (3-11) BUN 10 (7-18) mg/dl Creatinine 0.74 (0.6-1.2) mg/dl Est Cr Clr Drug Dosing 95.5 ml/min Est GFR ( Amer) 118.3 ml/min Est GFR (Non-Af Amer) 102.1 ml/min BUN/Creatinine Ratio 13.3 (10-20) Glucose 134 H (70-99) mg/dl Estimat Average Glucose 100 mg/dl Hemoglobin A1c 5.1 (4.5-5.6) % Calcium 8.9 (8.5-10.1) mg/dl Magnesium 2.2 (1.8-2.4) mg/dl Total Bilirubin 0.5 (0.2-1) mg/dl AST 133 H (15-37) U/L ALT 92 H (12-78) U/L Alkaline Phosphatase 60 (45-117) U/L Troponin I < 0.015 (0-0.045) ng/ml Total Protein 7.2 (6.4-8.2) gm/dl Albumin 3.5 (3.4-5.0) gm/dl Globulin 3.7 (2.5-4.0) gm/dl Albumin/Globulin Ratio 0.9 (0.9-2) Lipase 149 (73-393) U/L HCG, Qual Negative (Negative) Urine Color Urine Appearance (Clear) Urine pH (4.5-7.5) Ur Specific [place] (1.000-1.030) Urine Protein (Negative) Urine Glucose (UA) (Negative) Urine Ketones (Negative) Urine Blood (Negative) Urine Nitrite (Negative) Urine Bilirubin (Negative) Urine Urobilinogen (Negative) Ur Leukocyte Esterase (Negative) COVID-19 Eval Order SARS-CoV-2 (PCR) (Negative) 08/11/21 Range/Units 15:12 WBC 9.82 (4.8-10.8) K/uL RBC 4.58 (4.2-5.4) M/uL Hgb 14.2 (12.0-16.0) g/dL Hct 40.4 (37-47) % MCV 88.2 (80-100) fL MCH 31.0 (25-34) pg MCHC 35.1 (32-36) g/dL RDW Std Deviation 39.3 (36.4-46.3) fL RDW Coeff of Effie 12.3 (11.5-14.5) % Plt Count 235 (130-400) K/uL MPV 9.8 (7.4-10.4) fL Immature Gran % (Auto) 0.2 % Neut % (Auto) 76.8 % Lymph % (Auto) 14.9 % [place] % (Auto) 7.2 % Eos % (Auto) 0.8 % Baso % (Auto) 0.1 % Neut # (Auto) 7.54 H (1.4-6.5) K/uL Lymph # (Auto) 1.46 (1.2-3.4) K/uL [place] # (Auto) 0.71 H (0.11-0.59) K/uL Eos # (Auto) 0.08 (0-0.5) K/uL Baso # (Auto) 0.01 (0-0.2) K/uL Immature Gran # (Auto) 0.02 (0.00-0.02) K/uL PT INR Sodium (136-145) mmol/L Potassium (3.5-5.1) mmol/L Chloride (98-107) mmol/L Carbon Dioxide (21-32) mmol/L Anion Gap (3-11) BUN (7-18) mg/dl Creatinine (0.6-1.2) mg/dl Est Cr Clr Drug Dosing ml/min Est GFR ( Amer) ml/min Est GFR (Non-Af Amer) ml/min BUN/Creatinine Ratio (10-20) Glucose (70-99) mg/dl Estimat Average Glucose mg/dl Hemoglobin A1c (4.5-5.6) % Calcium (8.5-10.1) mg/dl Magnesium (1.8-2.4) mg/dl Total Bilirubin (0.2-1) mg/dl AST (15-37) U/L ALT (12-78) U/L Alkaline Phosphatase (45-117) U/L Troponin I (0-0.045) ng/ml Total Protein (6.4-8.2) gm/dl Albumin (3.4-5.0) gm/dl Globulin (2.5-4.0) gm/dl Albumin/Globulin Ratio (0.9-2) Lipase (73-393) U/L HCG, Qual (Negative) Urine Color Urine Appearance (Clear) Urine pH (4.5-7.5) Ur Specific [place] (1.000-1.030) Urine Protein (Negative) Urine Glucose (UA) (Negative) Urine Ketones (Negative) Urine Blood (Negative) Urine Nitrite (Negative) Urine Bilirubin (Negative) Urine Urobilinogen (Negative) Ur Leukocyte Esterase (Negative) COVID-19 Eval Order SARS-CoV-2 (PCR) (Negative) Diagnostic Findings US ABD: FINDINGS: Liver morphology is normal. An 8 mm echogenic right hepatic lobe lesion favors a hemangioma. Mild biliary ductal dilatation is noted. Common bile duct measures 1.1 cm in caliber. No common bile duct calculi are identified although the distal common bile duct is obscured. Gallstones within the gallbladder are noted. Sonographic Quiroz sign could not be assessed for in this patient. The gallbladder is partially obscured by adjacent bowel. There is no pericholecystic fluid. There is no right hydronephrosis. Pancreas is unremarkable by sonography. IMPRESSION: 1. Cholelithiasis. No convincing evidence for acute cholecystitis however a hepatobiliary scan could be obtained if persistent clinical suspicion. 2. Mild dilatation of the common bile duct. No common bile duct calculi identified although distal common bile duct obscured. CTAP: FINDINGS: A 4 mm subpleural left lower lobe nodule is likely benign. Groundglass opacities within the lower lungs favor atelectasis. No pneumatosis, free air or portal venous gas is present. There are no hepatic lesions. Mild dilatation of the common bile duct measuring 1 cm is noted. The spleen, adrenal glands and pancreas are unremarkable. There is no peripancreatic infiltration. Gallbladder is filled with gallstones. There is trace stranding adjacent to the gallbladder. The gallbladder is not distended. No pancreatic ductal dilatation is present. There is no evidence for a bowel obstruction. The appendix is normal. Caliber and wall thickness of small large bowel are normal. Several suspected fibroids are noted. An 8.4 cm right sided fibroid has likely increased in size since ultrasound of January 07, 2019. Major vasculature is patent. There is no acute fracture or suspicious lesion within the visualized skeletal structures. There is no hydronephrosis. Sensitivity for detection of urinary calculi is diminished given excreted contrast. IMPRESSION: 1. Cholelithiasis. Trace pericholecystic stranding. However, gallbladder not distended. If right upper quadrant pain, ultrasound is recommended to exclude acute cholecystitis. 2. Mild biliary ductal dilatation. Correlation with obstructive liver function tests is recommended. 3. Several fibroids which measure up to 8.4 cm, likely increased in size since ultrasound of January 07, 2019. CXR: FINDINGS: Lung volumes are normal. Lungs are clear. There is no pneumothorax or pleural effusion. Cardiac size is normal. Mediastinal contours are normal. There is no evidence for pulmonary edema. IMPRESSION: No acute cardiopulmonary findings. (1) Abdominal pain Abdominal location: upper abdomen, unspecified Qualified Code(s): R10.10 - Upper abdominal pain, unspecified
[2021-08-12] MEDS: CALCIUM CARBONATE 500 MG CHEWABLE TAB PO PRN (19:50)
[2021-08-12] MEDS: SERTRALINE HCL 100 MG TABLET PO SCH (20:51)
--- NOTE | 2021-08-12 23:55 | Hospitalist Progress Note ---
Date of Service August 12, 2021 Assessment & Plan (1) Abdominal pain: Plan: Present on admission with mid epigastric abdominal discomfort Possible related to hot sauce in diet CT abd/pelvis showed Cholelithiasis. Trace pericholecystic stranding. However, gallbladder not distended. Mild biliary ductal dilatation. Gallbladder ultrasound showed cholelithiasis. No convincing evidence for acute cholecystitis GI on board Recommend supportive therapy with antiemetics, IV fluids, pain control Patient may benefit from EUS/ERCP as an outpatient Consider outpatient referral to surgery for elective cholecystectomy Diet advance as tolerated Clinically improved significantly (2) Pneumonia due to COVID-19 virus: Plan: Currently denies any symptom of upper respiratory infection Testing Positive for COVID-19 She said today would be the 10-day quarantine for Covid 19 Does not meet any criteria for oxygen or remdesivir since patient saturating well on room air Continue doxycycline for now for atypical pneumonia Atypical pneumonia/superimposed bacterial infection Will check procalcitonin if negative will discontinue doxycycline Hyperglycemia Most recent hemoglobin A1c 5.1 Continue monitor DVT prophylaxis. Lovenox subcu Full code Admission and Anticipated Discharge Date Admission Date: August 11, 2021 Subjective Patient was seen and examined for follow-up of epigastric abdominal tenderness Lying in bed with no acute distress watching TV Patient said that she feels much better today She said her pain improved significantly She denies any upper respiratory infection such as shortness of breath or cough She said today would have been her 10 days quarantine Denies any chest pain, palpitation, dizziness, shortness of breath. Review of Systems Review of Systems: All systems reviewed & are unremarkable except as noted in Subjective Physical Exam Physical Exam: General- No acute distress Head- atraumatic Eyes- PERRL, EOMI, ENT- oropharynx clear Neck- supple, no JVD Lungs- clear to auscultation Heart- regular rhythm; no murmur Abdomen- normal bowel sounds, soft, nontender Extremities- no calf tenderness Neuro- alert, oriented x 3; PERRL, EOMI; no facial palsy; no dysarthria Skin- warm & dry Results & Data Results & Data ([facility]) Vital Signs (Past 12 Hours) Vital Signs Temp Pulse Resp BP Pulse Ox 08/12/21 16:00 36.8 C 74 14 122/85 98 (1) Abdominal pain Abdominal location: upper abdomen, unspecified Qualified Code(s): R10.10 - Upper abdominal pain, unspecified
[2021-08-13 07:27] LABS: Hematocrit (blood only) 44.3 % (37-47); Hemoglobin 14.6 g/dL (12.0-16.0); Mean Corpuscular Hemoglobin 30.5 pg (25-34); Mean Corpuscular Volume 92.5 fL (80-100); Mean Platelet Volume 10.2 fL (7.4-10.4); Platelet Count 219 K/uL (130-400); RDW Coefficient of Variation 12.4 % (11.5-14.5); RDW Standard Deviation 42.2 fL (36.4-46.3); Red Blood Count 4.79 M/uL (4.2-5.4); White Blood Count 8.57 K/uL (4.8-10.8)
[2021-08-13 08:16] LABS: Albumin Level 3.4 gm/dl (3.4-5.0); BUN Creatinine Ratio 14.2 (10-20); Calcium 9.1 mg/dl (8.5-10.1); Creatinine Clr Calc Pharmacy 96.9 ml/min; Est GFR (African American) 120.2 ml/min; Est GFR (Non-African American) 103.7 ml/min; Potassium 4.2 mmol/L (3.5-5.1)
[2021-08-13 08:19] LABS: Albumin Globulin Ratio 0.9 (0.9-2); Bilirubin,Total 0.4 mg/dl (0.2-1); Globulin 3.9 gm/dl (2.5-4.0); Total Protein 7.3 gm/dl (6.4-8.2)
[2021-08-13] MEDS: DOXYCYCLINE HYCLATE 100 MG CAP PO SCH ×2 (08:35→20:10)
[2021-08-13] MEDS: ENOXAPARIN INJ 40 MG/0.4 ML SYR SQ SCH (08:39)
--- NOTE | 2021-08-13 10:17 | Communication Note ---
Date of Service: August 13, 2021 41-year-old female with history of Covid infection, now admitted with abdominal pain and GI consulted for such. Symptoms seem suspicious for biliary colic, and imaging suggestive of cholelithiasis, perhaps mild jennifer dil, and though LFTs initially mildly elevated, have trended down and have normalized today. Would recommend conservative measures and plan for EGD/EUS. Will sign off. Thank you for allowing us to participate in the care of this patient. Please call with any acute changes, questions or concerns. Please see addendum below with additional recommendation from my supervising physician.
[2021-08-13] MEDS: CALCIUM CARBONATE 500 MG CHEWABLE TAB PO PRN ×2 (10:38→20:08)
[2021-08-13] MEDS: SERTRALINE HCL 100 MG TABLET PO SCH (20:10)
--- NOTE | 2021-08-13 23:58 | Hospitalist Progress Note ---
Date of Service August 13, 2021 Assessment & Plan (1) Abdominal pain: Plan: Present on admission with mid epigastric abdominal discomfort Possible related to hot sauce in diet CT abd/pelvis showed Cholelithiasis. Trace pericholecystic stranding. However, gallbladder not distended. Mild biliary ductal dilatation. Gallbladder ultrasound showed cholelithiasis. No convincing evidence for acute cholecystitis GI on board Recommend supportive therapy with antiemetics, IV fluids, pain control Patient may benefit from EUS/ERCP as an outpatient Today developed RUQ pain Will get an HIDA scan NPO and no morphine for the HIDA scan Consider surgical consult based on the HIDA scan result Continue monitor closely (2) Pneumonia due to COVID-19 virus: Plan: Currently denies any symptom of upper respiratory infection Testing Positive for COVID-19 She said today would be the 10-day quarantine for Covid 19 Does not meet any criteria for oxygen or remdesivir since patient saturating well on room air Continue doxycycline for now for atypical pneumonia Atypical pneumonia/superimposed bacterial infection Will check procalcitonin if negative will discontinue doxycycline Hyperglycemia Most recent hemoglobin A1c 5.1 Continue monitor DVT prophylaxis. Lovenox subcu Full code Admission and Anticipated Discharge Date Admission Date: August 13, 2021 Subjective Patient was seen and examined for follow-up of epigastric abdominal tenderness Lying in bed with no acute distress watching TV Early today pt had severe RUQ Currently her pain improved She has been n.p.o. in order to get a HIDA scan She denies any upper respiratory infection such as shortness of breath or cough She said today would have been her 10 days quarantine Denies any chest pain, palpitation, dizziness, shortness of breath. Review of Systems Review of Systems: All systems reviewed & are unremarkable except as noted in Subjective Physical Exam Physical Exam: General- No acute distress Head- atraumatic Eyes- PERRL, EOMI, ENT- oropharynx clear Neck- supple, no JVD Lungs- clear to auscultation Heart- regular rhythm; no murmur Abdomen- normal bowel sounds, soft, nontender Extremities- no calf tenderness Neuro- alert, oriented x 3; PERRL, EOMI; no facial palsy; no dysarthria Skin- warm & dry Results & Data Results & Data ([facility]) Vital Signs (Past 12 Hours) Vital Signs Temp Pulse Resp BP BP Pulse Ox 08/13/21 22:55 36.6 C 70 16 119/81 97 08/13/21 15:30 36.9 C 89 14 117/75 97 (1) Abdominal pain Abdominal location: upper abdomen, unspecified Qualified Code(s): R10.10 - Upper abdominal pain, unspecified
--- NOTE | 2021-08-14 14:27 | Nuclear Medicine Report ---
NUCLEAR MEDICINE HEPATOBILIARY SCAN CLINICAL HISTORY: Severe right upper quadrant pain. Elevated liver function tests. COMPARISON: Right upper quadrant ultrasound and CT of the abdomen and pelvis August 11, 2021. TECHNIQUE: 5.5 mCi of technetium 99m Choletec IV was injected at 1:05 PM on August 14, 2021. Imme diately following injection, imaging of the abdomen was carried out for 60 minutes in the anterior pr ojection. FINDINGS: Hepatic uptake of radiotracer is prompt and homogeneous. Activity is identified within the common bile duct and small bowel at 15 minutes. Activity is identified within the gallbladder at 20 minutes. There is no evidence for acute cholecystitis. IMPRESSION: No scintigraphic evidence for acute cholecystitis. ACT 112: Negative or not required by law. Electronically signed by: Norm Packer M.D. 08/14/2021 2:26 PM
[2021-08-14] MEDS: ENOXAPARIN INJ 40 MG/0.4 ML SYR SQ SCH (14:53)
[2021-08-14] MEDS: DOXYCYCLINE HYCLATE 100 MG CAP PO SCH ×2 (14:53→20:24)
--- NOTE | 2021-08-14 17:04 | Hospitalist Progress Note ---
Date of Service August 14, 2021 Assessment & Plan (1) Abdominal pain: Plan: Present on admission with mid epigastric abdominal discomfort Possible related to hot sauce in diet CT abd/pelvis showed Cholelithiasis. Trace pericholecystic stranding. However, gallbladder not distended. Mild biliary ductal dilatation. Gallbladder ultrasound showed cholelithiasis. No convincing evidence for acute cholecystitis GI on board Recommend supportive therapy with antiemetics, IV fluids, pain control Patient may benefit from EUS/ERCP as an outpatient Today developed RUQ pain Will get an HIDA scan NPO and no morphine for the HIDA scan Consider surgical consult based on the HIDA scan result HIDA scan has been negative for any acute cholecystitis We will start diet and was advised to move around more (2) Pneumonia due to COVID-19 virus: Plan: Currently denies any symptom of upper respiratory infection Testing Positive for COVID-19 She said today would be the 10-day quarantine for Covid 19 Does not meet any criteria for oxygen or remdesivir since patient saturating well on room air Continue doxycycline for now for atypical pneumonia Atypical pneumonia/superimposed bacterial infection Will check procalcitonin if negative will discontinue doxycycline No symptoms of COVID-19 We will discharge the patient tomorrow We will get her to a stable O2 saturation test prior to discharge Hyperglycemia Most recent hemoglobin A1c 5.1 Continue monitor DVT prophylaxis. Lovenox subcu Full code Admission and Anticipated Discharge Date Admission Date: August 13, 2021 Subjective 08/14/2021 The patient was seen and examined in Covid unit She denies any shortness of breath at rest or any other symptoms of Covid Denies any more abdominal pain Review of Systems Review of Systems: All systems reviewed and are unremarkable except as noted below Respiratory: No respiratory symptoms Gastrointestinal: Denies any GI symptoms Physical Exam Physical Exam: Lying in bed without any acute distress Constitutional: well developed, well nourished and average body habitus; not ill appearing Eyes: PERRL, conjunctivae normal, anicteric sclerae ENMT: external ear and nose normal, oropharynx normal Neck: trachea midline, no thyromegaly Respiratory: no respiratory distress and no cough Auscultation: lungs clear to auscultation bilaterally Cardiovascular: Rate/Rhythm: regular rate and regular rhythm; not tachycardic Heart Sounds: normal S1 and normal S2; no murmur Extremities: no edema Gastrointestinal (Abdomen): Inspection/Auscultation: normal bowel sounds; abdomen not distended Percussion/Palpation: + abdomen tender (Minimally tender in the epigastrium. Quiroz sign is negative) Musculoskeletal: No acute arthritis in any joints Neurologic: Alert, awake and oriented x3 Results & Data Results & Data ([facility]) Vital Signs (Past 12 Hours) Vital Signs Temp Pulse Resp BP Pulse Ox 08/14/21 16:18 37.0 C 84 16 115/77 98 08/14/21 07:27 36.6 C 79 18 111/75 98 Medications Administered Current Inpatient Medications Acetaminophen (Acetaminophen 325 Mg Tab) 325 mg PO Q6H PRN PRN Reason: Mild Pain Stop: 09/10/21 22:50 Albuterol (Albuterol Hfa 8 Gm Inhaler) 2 puffs INH Q2H PRN PRN Reason: sob/wheeze Stop: 09/10/21 20:48 Calcium Carbonate (Calcium Carbonate 500 Mg Chewable Tab) 400 mg PO Q4H PRN PRN Reason: HEARTBURN/INDIGESTION Stop: 09/10/21 22:50 Last Admin: 08/13/21 20:08 Dose: 400 mg Documented by: Doxycycline Hyclate (Doxycycline Hyclate 100 Mg Cap) 100 mg PO BID [facility] Stop: 08/19/21 08:59 Last Admin: 08/14/21 14:53 Dose: 100 mg Documented by: Enoxaparin Sodium (Enoxaparin Inj 40 Mg/0.4 Ml Syr) 40 mg SQ QAM [facility] Stop: 09/11/21 08:59 Last Admin: 08/14/21 14:53 Dose: Not Given Documented by: Lorazepam (Ativan) 0.25 mg in 0.5 mls @ 0.5 mls/min IV Q4H PRN PRN Reason: Anxiety Stop: 09/10/21 22:50 Promethazine HCl 12.5 mg/ (Sodium Chloride) 50.5 mls @ 202 mls/hr IV Q6H PRN PRN Reason: Nausea And Vomiting Stop: 09/10/21 22:50 Miscellaneous (* Control*Order Awaiting Action) 1 ea N/A QS [facility] Stop: 09/11/21 00:00 Last Admin: 08/14/21 16:09 Dose: Not Given Documented by: Morphine Sulfate (Morphine Sulfate 4 Mg/Ml 1 Ml Carp\Vial) 4 mg IV Q4H PRN PRN Reason: Pain Stop: 08/25/21 22:50 Last Admin: 08/13/21 10:05 Dose: 4 mg Documented by: Sertraline HCl (Sertraline Hcl 100 Mg Tablet) 100 mg PO HS [facility] Stop: 09/11/21 20:59 Last Admin: 08/13/21 20:10 Dose: 100 mg Documented by: Tramadol HCl (Tramadol Hcl 50 Mg Tablet) 25 - 50 mg PO Q4H PRN PRN Reason: Pain Stop: 09/10/21 22:50 (1) Abdominal pain Abdominal location: upper abdomen, unspecified Qualified Code(s): R10.10 - Upper abdominal pain, unspecified
[2021-08-14] MEDS: SERTRALINE HCL 100 MG TABLET PO SCH (20:24)
[2021-08-14] MEDS ORDERED: DOCUSATE SODIUM/SENNA 50/8.6MG TAB PO STA (20:59)
[2021-08-15] MEDS: ENOXAPARIN INJ 40 MG/0.4 ML SYR SQ SCH (08:19)
[2021-08-15] MEDS: DOXYCYCLINE HYCLATE 100 MG CAP PO SCH (08:19)
--- NOTE | 2021-08-15 14:01 | Hospitalist Progress Note ---
Date of Service August 15, 2021 Assessment & Plan (1) Abdominal pain: Plan: Present on admission with mid epigastric abdominal discomfort Possible related to hot sauce in diet CT abd/pelvis showed Cholelithiasis. Trace pericholecystic stranding. However, gallbladder not distended. Mild biliary ductal dilatation. Gallbladder ultrasound showed cholelithiasis. No convincing evidence for acute cholecystitis GI on board Recommend supportive therapy with antiemetics, IV fluids, pain control Patient may benefit from EUS/ERCP as an outpatient Today developed RUQ pain Will get an HIDA scan NPO and no morphine for the HIDA scan Consider surgical consult based on the HIDA scan result HIDA scan has been negative for any acute cholecystitis Has had 3 attacks of pain related to gallstones and last 7 to 10 days without any evidence of acute cholecystitis She is worried about having another attack soon We will get an appointment with outpatient surgery as soon as possible following discharge (2) Pneumonia due to COVID-19 virus: Plan: Currently denies any symptom of upper respiratory infection Testing Positive for COVID-19 She said today would be the 10-day quarantine for Covid 19 Does not meet any criteria for oxygen or remdesivir since patient saturating well on room air Continue doxycycline for now for atypical pneumonia Atypical pneumonia/superimposed bacterial infection Will check procalcitonin if negative will discontinue doxycycline No symptoms of COVID-19 We will discharge the patient tomorrow She is done with her quadrant time days and she does not have any symptoms secondary to COVID-19 infection She does not require any oxygen with ambulation and/or at rest Hyperglycemia Most recent hemoglobin A1c 5.1 Continue monitor DVT prophylaxis. Lovenox subcu Full code Admission and Anticipated Discharge Date Admission Date: August 13, 2021 Subjective 08/14/2021 The patient was seen and examined in Covid unit She denies any shortness of breath at rest or any other symptoms of Covid Denies any more abdominal pain 08/15/2021 The patient was seen and examined in Covid unit She denies any symptoms related to Covid Her GI symptoms have resolved She passed the 2 steps O2 saturation test Review of Systems Review of Systems: All systems reviewed and are unremarkable except as noted below Respiratory: No respiratory symptoms Gastrointestinal: Denies any GI symptoms Physical Exam Physical Exam: Lying in bed without any acute distress Constitutional: well developed, well nourished and average body habitus; not ill appearing Eyes: PERRL, conjunctivae normal, anicteric sclerae ENMT: external ear and nose normal, oropharynx normal Neck: trachea midline, no thyromegaly Respiratory: no respiratory distress and no cough Auscultation: lungs clear to auscultation bilaterally Cardiovascular: Rate/Rhythm: regular rate and regular rhythm; not tachycardic Heart Sounds: normal S1 and normal S2; no murmur Extremities: no edema Gastrointestinal (Abdomen): Inspection/Auscultation: normal bowel sounds; abdomen not distended Percussion/Palpation: + abdomen tender (Minimally tender in the epigastrium. Quiroz sign is negative) Musculoskeletal: No acute arthritis in any joint Neurologic: Alert, awake and oriented x3. No focal sensory and motor deficit appreciated Psychiatric: A+Ox3, euthymic affect Lymphatic: no cervical or axillary lymphadenopathy Results & Data Results & Data ([facility]) Vital Signs (Past 12 Hours) Vital Signs Temp Pulse Pulse Pulse Pulse Resp Resp 08/15/21 08:46 97 H 82 77 17 08/15/21 08:17 36.9 C 78 16 Resp Resp BP Pulse Ox Pulse Ox Pulse Ox Pulse Ox 08/15/21 08:46 16 15 98 98 98 08/15/21 08:17 117/79 99 Medications Administered Current Inpatient Medications Acetaminophen (Acetaminophen 325 Mg Tab) 325 mg PO Q6H PRN PRN Reason: Mild Pain Stop: 09/10/21 22:50 Albuterol (Albuterol Hfa 8 Gm Inhaler) 2 puffs INH Q2H PRN PRN Reason: sob/wheeze Stop: 09/10/21 20:48 Calcium Carbonate (Calcium Carbonate 500 Mg Chewable Tab) 400 mg PO Q4H PRN PRN Reason: HEARTBURN/INDIGESTION Stop: 09/10/21 22:50 Last Admin: 08/13/21 20:08 Dose: 400 mg Documented by: Doxycycline Hyclate (Doxycycline Hyclate 100 Mg Cap) 100 mg PO BID [facility] Stop: 08/19/21 08:59 Last Admin: 08/15/21 08:19 Dose: 100 mg Documented by: Enoxaparin Sodium (Enoxaparin Inj 40 Mg/0.4 Ml Syr) 40 mg SQ QAM [facility] Stop: 09/11/21 08:59 Last Admin: 08/15/21 08:19 Dose: Not Given Documented by: Lorazepam (Ativan) 0.25 mg in 0.5 mls @ 0.5 mls/min IV Q4H PRN PRN Reason: Anxiety Stop: 09/10/21 22:50 Promethazine HCl 12.5 mg/ (Sodium Chloride) 50.5 mls @ 202 mls/hr IV Q6H PRN PRN Reason: Nausea And Vomiting Stop: 09/10/21 22:50 Miscellaneous (* Control*Order Awaiting Action) 1 ea N/A QS [facility] Stop: 09/11/21 00:00 Last Admin: 08/15/21 08:17 Dose: Not Given Documented by: Morphine Sulfate (Morphine Sulfate 4 Mg/Ml 1 Ml Carp\Vial) 4 mg IV Q4H PRN PRN Reason: Pain Stop: 08/25/21 22:50 Last Admin: 08/13/21 10:05 Dose: 4 mg Documented by: Sertraline HCl (Sertraline Hcl 100 Mg Tablet) 100 mg PO [facility] Stop: 09/11/21 20:59 Last Admin: 08/14/21 20:24 Dose: 100 mg Documented by: Tramadol HCl (Tramadol Hcl 50 Mg Tablet) 25 - 50 mg PO Q4H PRN PRN Reason: Pain Stop: 09/10/21 22:50 (1) Abdominal pain Abdominal location: upper abdomen, unspecified Qualified Code(s): R10.10 - Upper abdominal pain, unspecified
[2021-08-15] MEDS: CALCIUM CARBONATE 500 MG CHEWABLE TAB PO PRN (14:51)
--- NOTE | 2021-08-16 08:22 | Discharge Summary ---
Date of Service August 16, 2021 Admission HPI Per Admitting Provider History obtained from patient, family, and records. Medical history significant for mood disorder. Almost 2 weeks ago, patient noted cough symptoms later productive of yellow sputum along with headache, anosmia, ageusia, flulike symptoms. No unusual shortness of breath as per patient. Sick COVID-19 contacts at home. Patient completed COVID-19 vaccination. Home COVID-19 test was positive. Patient isolated at home along with . Cough symptoms improving although still productive of yellow sputum. Few days ago, patient noted transient achy epigastric discomfort noted after a meal. No fever, no chills. After a heavy lunch today, patient noted recurrence of achy somewhat burning epigastric discomfort radiating to her chest with nausea symptoms. No fever, no chills. Patient consulted ER for evaluation. 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 Admission Exam Per Admitting Provider Physical Exam: GENERAL: Slightly uncomfortable, no respiratory distress SKIN: Normal color, warm HEENT: Bespectacled, [place] palpebral conjunctivae, no ptosis, dry buccal mucosa NECK : Supple, no tenderness CHEST : CTA, no tenderness HEART : RRR, no obvious murmurs ABDOMEN: Some distention, epigastric tenderness EXTREMITIES : No LE swelling/tenderness, no other conspicuous deformities noted NEUROLOGIC : Coherent, no facial asymmetry, no other gross focality Principal Diagnosis Abdominal pain secondary to cholelithiasis without any acute cholecystitis, COVID-19 infection without any symptoms Discharge Exam Lying in bed without any acute distress Constitutional well developed, well nourished and average body habitus; not ill appearing Eyes PERRL, conjunctivae normal, anicteric sclerae ENMT external ear and nose normal, oropharynx normal Neck trachea midline, no thyromegaly Respiratory no respiratory distress and no cough Auscultation: lungs clear to auscultation bilaterally Cardiovascular Rate/Rhythm: regular rate and regular rhythm; not tachycardic Heart Sounds: normal S1 and normal S2; no murmur Extremities: no edema Gastrointestinal (Abdomen) Inspection/Auscultation: normal bowel sounds; abdomen not distended Percussion/Palpation: + abdomen tender (Minimally tender in the epigastrium. Quiroz sign is negative) Psychiatric A+Ox3, euthymic affect Lymphatic no cervical or axillary lymphadenopathy Discharge Data Allergies Allergy/AdvReac Type Severity Reaction Status Date / Time No Known Allergies Allergy Verified 08/11/21 16:51 Consultations 08/11/21 19:50 ED Decision to Admit Stat 08/11/21 22:51 Consult Gastroenterology Routine Ordered Studies 08/11/21 14:56 CT abd pelvis IV con only Stat 08/11/21 15:49 US gallbladder Stat Hospital Course (1) Abdominal pain: Present on admission with mid epigastric abdominal discomfort Possible related to hot sauce in diet CT abd/pelvis showed Cholelithiasis. Trace pericholecystic stranding. However, gallbladder not distended. Mild biliary ductal dilatation. Gallbladder ultrasound showed cholelithiasis. No convincing evidence for acute cholecystitis GI on board Recommend supportive therapy with antiemetics, IV fluids, pain control Patient may benefit from EUS/ERCP as an outpatient Today developed RUQ pain Will get an HIDA scan NPO and no morphine for the HIDA scan Consider surgical consult based on the HIDA scan result HIDA scan has been negative for any acute cholecystitis Has had 3 attacks of pain related to gallstones and last 7 to 10 days without any evidence of acute cholecystitis She is worried about having another attack soon We will get an appointment with outpatient surgery as soon as possible following discharge (2) Pneumonia due to COVID-19 virus: Currently denies any symptom of upper respiratory infection Testing Positive for COVID-19 She said today would be the 10-day quarantine for Covid 19 Does not meet any criteria for oxygen or remdesivir since patient saturating well on room air Continue doxycycline for now for atypical pneumonia Atypical pneumonia/superimposed bacterial infection Will check procalcitonin if negative will discontinue doxycycline No symptoms of COVID-19 We will discharge the patient tomorrow She is done with her quadrant time days and she does not have any symptoms secondary to COVID-19 infection She does not require any oxygen with ambulation and/or at rest Hyperglycemia Most recent hemoglobin A1c 5.1 Continue monitor DVT prophylaxis. Lovenox subcu Full code Total Time Total Time Spent Total Time Spent (In Minutes): 35 minutes Discharge Plan Discharge Items Patient Disposition: Home - Self-Care Reason For Visit: ABD PAIN Discharge Diagnosis: Abdominal pain secondary to cholelithiasis without any acute cholecystitis, COVID-19 infection without any symptoms Condition on Discharge: Good Activity: Resume your previous activity Non-emergency contact: Primary Care Provider Call non-emergency contact if: you have any medication questions and your symptoms worsen Follow-up/Referrals: Wilton Canseco MD [Physician] - 08/19/21 11:00 am Manasa Dickinson DO [Primary Care Provider] - 08/16/21 2:00 pm (Date & Time 08/16/2021 2:00 PM Provider Milton Umaña MD [facility] PLEASE NOTE THAT THIS IS A TELEMEDICINE APPOINTMENT. PLEASE FOLLOW THE INSTRUCTIONS PROVIDED IN YOUR EMAIL. IF YOU HAVE ANY QUESTIONS REGARDING THIS APPOINTMENT, PLEASE CALL ) Diet: Low Fat Addtl Attending Provider Instructions: Please keep your appointments as advised Try to stay away from fatty foods to prevent an attack of cholecystitis Take your pain medications cautiously as it can cause confusion, constipation and addiction. Pending Studies at Discharge: No Stand-Alone Forms: My [facility] [employer], Smoking Cessation Medications and DC Order Prescriptions: New tramadol [Ultram] 50 mg tablet 50 mg PO Q6HWA PRN (Reason: pain) Qty: 10 RF: 0 Continued sertraline [Zoloft] 100 mg tablet 100 mg PO DAILY RF: 0 norethindrone-e.estradiol-iron [Junel FE 1.5/30 (28)] 1.5 mg-30 mcg (21)/75 mg (7) tablet 1 tab PO DAILY RF: 0 calcium carbonate [Tums] 200 mg calcium (500 mg) Tablet,Chewable 400 mg PO DIRECTED PRN (Reason: HEARTBURN/INDIGESTION) RF: 0 Discharge Orders: Discharge Order (Routine); Ordered 08/15/21 Ordered By: Melody Morataya Admission Data Admit Date/Time: 08/11/21 20:05 Attending Provider: Melody Morataya Admit Provider: Gurdeep Zhang Primary Care Provider: Manasa Dickinson Other Providers: Gurdeep Zhang ; Lino Zuñiga ; Almita Mcgowan ; Gómez Benavides ; Ángela Gonzalez ; Prince Fitch ; Rommel Gipson ; Marilu Campos ; Mark Banuelos ; Margaret Maxwell ; Mikala Castillo ; Jennie Lorenz ; Eladia Duque ; Thalia Regalado ; Laura Smith Other Interventions: Discharge Summary Assessment (RN) Last Done: 08/15/21 14:34
== END 2021-08-15 15:38 | disposition home or self-care (01) | DRG 177 ==
LOC: ED 14:22 → 3W 14:22 → SUATTDRO 08-13 15:49

== ENCOUNTER 2024-02-19 08:18 | Observation (INO) ==
--- NOTE | 2024-02-04 13:23 | Anesthesiology Consultation ---
Date of Service February 04, 2024 Assessment & Plan (1) Encounter for pre-operative examination: Chart Review Chart Review: Acceptable Risk for Surgery (pending DOS CBC with diff ) and Patient NOT seen in Pre Admission Testing - Check test AM DOS - Check CBC with diff DOS due to heavy menses -Infectious Disease screening: Per PAT nursing assessment on 02/04/24. No known infectious disease contacts in past 10 days or current infectious disease symptoms. No recent travel outside the country. History Surgery Operation Date: 02/19/24 07:00 Proposed Procedures p Abdominal Myomectomy - Mini Abraham MD Height/Weight Height: 5 ft 5 in Weight: 80.739 kg Allergies Allergy/AdvReac Type Severity Reaction Status Date / Time No Known Allergies Allergy Verified 02/04/24 12:47 Medications Home Medications Medication Instructions Recorded Confirmed Last Taken sertraline 100 mg tablet (Zoloft) 100 mg PO HS 11/23/20 02/04/24 08/11/21 calcium carbonate (Tums) 400 mg PO DIRECTED PRN 08/11/21 02/04/24 08/11/21 HEARTBURN/INDIGESTION norethindrone 1.5 mg-ethinyl 1 tab PO HS 08/11/21 02/04/24 08/11/21 estradiol 30 mcg(21)/iron 75 mg(7) tablet (June FE .03/03 ()) Past Medical History Medical History Depression History of COVID-19 07/2021, not hosp; moderate [id number] and joint aches>resolved 05/2023, not hosp; mild symptoms>resolved Past Family History Family History Mother Dyslipidemia Hypertension Father Hypertension Grandmother (Paternal) Hypertension Grandmother (Maternal) Diabetes Heart disease Denies family history of Ovarian cancer Breast cancer Colorectal cancer Past Surgical History Surgical History History of egg donation x3, egg retrievals History of esophagogastroduodenoscopy (EGD) History of wisdom tooth extraction Hx laparoscopic cholecystectomy Social History Smoking Status: Never smoker Do You Dip or Chew Tobacco: No Hx Alcohol Use: Yes Alcohol type: beer alcohol intake frequency: a few times a week Hx Substance Use: Yes substance use type: former substance user and marijuana Last Used Substance Other:: couple times in college only
[~2024-02-19 08:18] MED LIST: ACETAMINOPHEN 1000 MG/100 ML IV IV ONE; DEXAMETHASONE SOD INJ 4 MG/ML VIAL ONE; LIDOCAINE 2% 2 ML VIAL/AMP(20MG/ML) INFIL ONE; MIDAZOLAM HCL 1 MG/ML 2ML VIAL ONE; ONDANSETRON INJ 2 MG/ML 2 ML VIAL ONE; PROPOFOL IV EMULSION 10 MG/ML 20 ML VIAL IV ONE; ROCURONIUM BROMIDE 10 MG/ML 5 ML VIAL IV ONE; SUGAMMADEX SODIUM 200 MG/2 ML VIAL IV ONE; fentaNYL citrate PF 100 MCG/2 ML VIAL ONE
[2024-02-19] MEDS ORDERED: ONDANSETRON INJ 2 MG/ML 2 ML VIAL IV PRN ×2 (08:50→12:15)
[2024-02-19] MEDS ORDERED: PROMETHAZINE HCL 6.25 MG in SODIUM CHLORIDE 0.9% 50 ML IV PRN (08:50)
[2024-02-19] MEDS ORDERED: ePHEDrine sulfate 50 MG/ML AMP IV PRN (08:50)
[2024-02-19] MEDS ORDERED: ATROPINE SULFATE 0.1 MG/ML 10ML SYR IV PRN (08:50)
[2024-02-19] MEDS ORDERED: HYDROmorphone INJ 2 MG/ML SYR/VIAL IV PRN (08:50)
[2024-02-19 09:01] LABS: Basophils # (auto) 0.03 K/uL (0.00-0.20); Basophils % (auto) 0.5 %; Eosinophils # (auto) 0.37 K/uL (0.00-0.50); Eosinophils % (auto) 6.4 %; Hematocrit (blood only) 41.1 % (37.0-47.0); Hemoglobin 13.5 g/dl (12.0-16.0); Immature Granulocytes # (auto) 0.01 K/uL (0.01-0.20); Immature Granulocytes % (auto) 0.2 %; Lymphocytes # (auto) 2.09 K/uL (1.20-3.40); Lymphocytes % (auto) 36.3 %; Mean Corpuscular Hemoglobin 29.6 pg (25.0-34.0); Mean Corpuscular Hgb Conc 32.8 g/dL (32.0-36.0); Mean Corpuscular Volume 90.1 fL (80.0-100.0); Mean Platelet Volume 10.6 fL (9.4-12.4); Monocytes # (auto) 0.49 K/uL (0.11-0.59); Monocytes % (auto) 8.5 %; Neutrophils # (auto) 2.76 K/uL (1.40-6.50); Neutrophils % (auto) 48.1 %; Platelet Count 193 K/uL (130-400); RDW Coefficient of Variation 12.5 % (11.5-14.5); RDW Standard Deviation 41.1 fL (36.4-46.3); Red Blood Count 4.56 M/uL (4.20-5.40); White Blood Count 5.75 K/ul (4.8-10.8)
[2024-02-19] MEDS: LR 15ML/HR IV SCH (09:04)
[2024-02-19] MEDS: LACTATED RINGER'S 1,000 ML IV SCH (09:04)
--- NOTE | 2024-02-19 09:25 | History & Physical Bridge Note ---
Date of Service February 19, 2024 History & Physical Bridge Note I have examined the patient, reviewed the History & Physical and in the interval since the performance of the History & Physical I have noted the following changes of clinical significance: no changes noted
[2024-02-19] MEDS: ceFAZolin 2000MG 2,000 MG/15 ML SYR IV SCH (09:50)
[2024-02-19] MEDS ORDERED: HYDROmorphone INJ 2 MG/ML SYR/VIAL ONE (09:50)
[2024-02-19] MEDS ORDERED: PHENYLEPHRINE 100MCG/ML 10ML SYR IV ONE (10:30)
[2024-02-19] MEDS ORDERED: ROCURONIUM BROMIDE 10 MG/ML 5 ML VIAL IV ONE (10:39)
[2024-02-19] MEDS ORDERED: ONDANSETRON INJ 2 MG/ML 2 ML VIAL ONE (10:42)
[2024-02-19] MEDS: BUPIVACAINE LIPOSOME 1.3% 266 MG/20 ML VIAL ONE (11:53)
[2024-02-19] MEDS: BUPIVACAINE 0.5 % 5 MG/1 ML MPF 30ML VIAL ONE (11:53)
[2024-02-19] MEDS: VASOPRESSIN 20 UNIT/ML VIAL ONE (11:54)
[2024-02-19] MEDS: HEPARIN (PORCINE) 1000 UNIT/ML 10 ML (CATH LAB USE ONLY) ONE (11:55)
[2024-02-19] MEDS: TISSEEL FIBRIN SEALANT 10ML TOP ONE (11:56)
[2024-02-19] MEDS ORDERED: KETOROLAC 30 MG/ML VIAL ONE (12:06)
--- NOTE | 2024-02-19 12:15 | Post Operative Brief Note ---
Immediate Post Op Note v1 Date of Surgery February 19, 2024 Pre & Post Diagnosis Operation Date: 02/19/24 09:30 Pre-Op Diagnosis: Uterine Fibroids Post-Op Diagnosis: Uterine Fibroids I identified the patient and participated in the time-out.: Yes Procedure Operation Date: 02/19/24 09:30 Actual Procedures p Abdominal Myomectomy - Mini Abraham MD Surgeon Mini Abraham MD Planer Operator / Grader Telma Cates PA-C Estimated Blood Loss 100 Findings Consistent with Post-Op Diagnosis Drains Hinojosa Catheter
--- NOTE | 2024-02-19 12:37 | Operative Report ---
Post Operative Report Pre & Post Diagnosis Operation Date: 02/19/24 09:30 Pre-Op Diagnosis: Uterine Fibroids Post-Op Diagnosis: Uterine Fibroids I identified the patient and participated in the time-out.: Yes Procedure Operation Date: 02/19/24 09:30 Actual Procedures p Abdominal Myomectomy - Mini Abraham MD Surgeon Mini Abraham MD Cold Press Loader Telma Cates PA-C Estimated Blood Loss 100 Findings See Below 1. Multi-fibroid uterus a. 9 cm posterior fibroid b. 2 cm anterior fundus c. 2-3 cm left lower uterine segment d. 1 cm left lateral posterior e. 1 cm left posterior f. 0.5 cm posterior fundal 2. Normal appearing fallopian tubes bilaterally 3. Right ovary with a simple appearing cyst (approximately 2 cm) 4. Normal appearing left ovary 5. Anterior cul-de-sac without lesions or adhesions Fluids See Anesthesia Report Transfused 240 ml of cell saver blood Specimens uterine fibroids (6) Drains Wall catheter left in place. Urine: 200 ml Anesthesia Type General Complications none Indications 43 yo with a multi-fibroid uterus desiring removal of fibroids for future fertility. Description of Procedure The patient was taken to the operating room where she was prepped and draped in the normal sterile fashion in the dorsal supine position. A wall catheter was administered without incident. After the general anesthetic was found to be adequate, a Pfannenstiel skin incision was made with the first knife. This was carried through the underlying layer of fascia with an 11 blade. The fascia was incised in the midline with the bovie and the fascial incision was then extended laterally in both directions with the Aquino scissors. The superior aspect of the fascial incision was then grasped with Domenic clamps, tented up, and dissected off the underlying layer of rectus muscle bluntly. It was then dissected in the middle with the Aquino scissors. The inferior aspect of this incision was addressed in a similar manner. The rectus muscles were in the midline bluntly. The peritoneum was identified with hemostat clamps, tented up, and entered sharply with the Metzenbaum scissors. The peritoneal incision was then extended superiorly and inferiorly with the Metzenbaum scissors and then extended bluntly. An Moises retractor was then inserted. Next, the uterus was grasped bluntly and removed from the abdomen. The fundal fibroid was identified. It was then injected with a dilute solution of vasopressin. Next, the point tip was used with the cautery to cut the linear incision along the top of the fibroid until fibroid fibers were seen. The edges of the myometrium was grasped with Allis clamps, tented up, and a hemostat was used to bluntly dissect around the fibroid followed by blunt dissection with a finger. The fibroid was easily and bluntly dissected out. It was also grasped with Irene clamp to prevent traction. This was done for all the small fibroids noted above. Attention was then turned to the largest fibroid on the posterior uterine wall. The point tip was used with the cautery to cut the linear incision along the top of the fibroid until fibroid fibers were seen. The edges of the myometrium was grasped with Allis clamps, tented up, and a hemostat was used to bluntly dissect around the fibroid followed by blunt dissection with a finger. Once the blunt dissection of the large fibroid was complete, it was handed off to the scrub nurse. The large fibroid traversed the whole myometrium down to the mucosal surface and the endometrial cavity was entered when this fibroid was removed. All fibroids were sent for pathological evaluation. Next, the uterine incisions were closed with 0 V-lock in three layers. The uterus was seen to be completely hemostatic after closure. The pelvis was irrigated and suctioned. Hemostasis again noted. Tisseal was placed along the uterine incisions. The uterus was then carefully returned to the abdomen. The Moises retractor was removed without incident. Next, the greater omentum was replaced over the uterus. Then the fascia was closed with #0 PDS in a running fashion. Next, the Amee's fascia was closed with #3-0 Vicryl in an interrupted fashion and the skin was closed with #4-0 Vicryl in a running subcuticular fashion and dermabond. After the patient was cleaned, she was taken to Recovery in stable condition. My Cold Press Loader was necessary throughout the procedure for uterine manipulation, retraction, handling of abdominal instruments to ensure adequate visualization, gentle tissue manipulation, and hemostasis. Patient should deliver via section in the future. Vaginal births not recommended. I attest to the content of the Intraoperative Record and any orders documented therein. Any exceptions are noted below.
[2024-02-19] MEDS: fentaNYL citrate PF 100 MCG/2 ML VIAL IV PRN (12:53)
--- NOTE | 2024-02-19 13:02 | Anesthesiology Progress Note ---
Date of Service February 19, 2024 Anesthesia Post Procedure Vital Signs Vital Signs: Temp Pulse Pulse Resp BP Pulse Ox O2 Del Method 02/19/24 12:50 89 13 120/84 95 Room Air 02/19/24 12:40 96 H 17 122/81 92 Room Air 02/19/24 12:30 91 H 13 120/85 95 Oxymask 02/19/24 12:20 96 H 13 123/84 97 Oxymask 02/19/24 12:11 36 C L 100 H 19 124/92 97 Oxymask 02/19/24 08:36 37.1 C 82 16 116/79 95 Room Air O2 Flow Rate 02/19/24 12:50 02/19/24 12:40 02/19/24 12:30 5 02/19/24 12:20 5 02/19/24 12:11 5 02/19/24 08:36 Pain Intensity Abdomen: Pain Intensity: 5 Transfer of Care Handoff Completed per policy Notes Mental Status: alert / awake / arousable Patient Amnestic to Procedure: Yes Nausea / Vomiting: adequately controlled Pain: adequately controlled Airway Patency, RR, SpO2: stable & adequate BP & HR: stable & adequate Hydration State: stable & adequate Anesthetic Complications: no major complications apparent
[2024-02-19] MEDS: IBUPROFEN 600 MG TAB PO SCH (14:11)
[2024-02-19] MEDS: oxyCODONE/ACETAMINOPHEN 5mg/325mg TAB PO PRN (14:27)
[2024-02-19] MEDS: SIMETHICONE 80 MG CHEW PO SCH (14:27)
[2024-02-19] MEDS: ACETAMINOPHEN 325 MG TAB PO SCH (17:51)
[2024-02-19] MEDS: DOCUSATE SODIUM 100 MG CAP PO SCH (21:43)
[2024-02-19] MEDS: SERTRALINE HCL 100 MG TABLET PO SCH (21:43)
[2024-02-19] MEDS ORDERED: Nursing to Pharmacy Communication SCH ×2 (22:15)
[2024-02-19] MEDS: ZOLPIDEM TARTRATE 5 MG TAB PO SCH (22:29)
[2024-02-20] MEDS: IBUPROFEN 600 MG TAB PO SCH ×2 (00:18→03:37)
[2024-02-20] MEDS ORDERED: Nursing to Pharmacy Communication SCH (00:30)
[2024-02-20 07:05] LABS: Hematocrit (blood only) 36.6 % (37.0-47.0); Hemoglobin 11.8 g/dl (12.0-16.0); Mean Corpuscular Hemoglobin 29.6 pg (25.0-34.0); Mean Corpuscular Hgb Conc 32.2 g/dL (32.0-36.0); Mean Corpuscular Volume 91.7 fL (80.0-100.0); Mean Platelet Volume 10.7 fL (9.4-12.4); Platelet Count 174 K/uL (130-400); RDW Coefficient of Variation 12.8 % (11.5-14.5); RDW Standard Deviation 42.2 fL (36.4-46.3); Red Blood Count 3.99 M/uL (4.20-5.40); White Blood Count 9.82 K/ul (4.8-10.8)
--- NOTE | 2024-02-20 07:51 | Gynecologic Progress Note ---
Date of Service February 20, 2024 Assessment & Plan (1) Fibroid uterus: Plan: s/p Abdominal laparotomy and myomectomies on 02/19/2024. POD#1. Patient doing well and meeting discharge criteria. Patient has post-op medications at home. Plan to discharge home this afternoon. Admission and Anticipated Discharge Date Admission Date: February 19, 2024 Subjective Patient seen an examined. Patient with pain around 3 am which was controlled with percocet. Patient ambulating well. Hinojosa catheter out and used the restroom approximately 3-4x. +Flatus. Tolerating regular diet. Minimal vaginal spotting. Denies N/V, fevers, chills, SOB, or CP. Review of Systems Constitutional: as per Subjective / HPI Respiratory: as per Subjective / HPI Cardiovascular: as per Subjective / HPI Physical Exam Constitutional: WD/WN, vitals as above Respiratory: normal respiratory effort, lungs clear to auscultation Cardiovascular: RRR, no murmur, no edema Gastrointestinal (Abdomen): Normal bowel sounds. Incision: appropriately tender to palpation. Erythema, no edema. Intact with sutures and dermabond. Results & Data Vital Signs (Past 12 Hours) Vital Signs Temp Pulse Resp BP Pulse Ox O2 Del Method 02/20/24 03:03 36.5 C 66 21 105/59 L 99 Room Air 02/19/24 23:26 36.8 C 86 18 112/63 93 Room Air 02/19/24 20:30 37.0 C 77 16 119/69 Room Air 02/19/24 20:30 Room Air (1) Fibroid uterus Uterine leiomyoma location: intramural and subserous Qualified Code(s): D25.1 - Intramural leiomyoma of uterus; D25.2 - Subserosal leiomyoma of uterus
--- NOTE | 2024-02-20 07:57 | Discharge Summary ---
Date of Service February 20, 2024 Admission HPI Per Admitting Provider 43 yo admitted following abdominal laparotomy and myomectomies on 02/19/2024 for 23 hour observation. Admission Exam (Per Admitting) Constitutional WD/WN, vitals as above Respiratory normal respiratory effort, lungs clear to auscultation Cardiovascular RRR, no murmur, no edema Discharge Data Procedures Performed Operation Date: 02/19/24 09:30 Actual Procedures p Abdominal Myomectomy - Mini Abraham MD Hospital Course (1) Fibroid uterus: s/p Abdominal laparotomy and myomectomies on 02/19/2024. POD#1. Patient doing well and meeting discharge criteria. Patient has post-op medications at home. Plan to discharge home this afternoon.
--- OUTSIDE RECORDS SUMMARY | 2024-02-20 10:43 | External Medical Summary | Summary of Care ---
Author Name Unknown Organization [facility] Address [address] [place] [facility] [place] [address] Phone [phone] Care Team Providers Care Site Interpreter Name Role Phone RanjitManasa wiley Primary Care Provider [phone] Reason for Visit * Reason Comments pre-op exam Encounter Details Date Type Department Care Team (Late st Contact Info) Description 02/03/2024 1:15 PM EDT Office Visit Gynecology/Obstetrics Araceli Daniels [address] [place] [place] [id number] Mini Abraham MD [address] [place] [phone] Preop testing* Allergies No known active allergiesdocumented as of this encounter (statuses as of 02/03/2024) Medications Medication Sig Dispensed Refills Start Date End Date Status Mirela VALENZUELA 1.5-30 MG-MCG Oral TabletIndications:Men orrhagia with irregular cycle TAKE BY MOUTH 1 TABLET IN THE MORNING. Strength: 1.5-30 MG-MCG 84 Tablet 3 06/12/2023 Active Sertraline HCl 100 MG Oral Tablet (Zoloft)Indications:M ild episode of recurrent major depressive disorder (HCC) TAKE 1 TABLET BY MOUTH EVERY DAY IN THE MORNING 90 Tablet 3 06/12/2023 Active ALPRAZolam 0.25 MG Oral Tablet (Xanax)Indications:An xiety disorder, unspecified type Take 1 Tablet by mouth 3 times a day as needed for Anxiety. 10 Tablet 0 12/23/2023 Active Ibuprofen 600 MG Oral Tablet (Motrin) Take 1 Tablet by mouth every 6 hours as needed (pain). With food. 30 Tablet 1 02/03/2024 Active Acetaminophen 325 MG Oral Tablet (Tylenol) Take 2 Tablets by mouth every 6 hours as needed for Pain, Moderate. 30 Tablet 1 02/03/2024 Active Simethicone 80 MG Oral Tablet Chewable (Mylicon) Take 1 Tablet by mouth every 6 hours as needed for Gas. 30 Tablet 0 02/03/2024 Active Docusate Sodium 100 MG Oral Capsule (Colace) Take 1 Capsule by mouth in the morning and 1 Capsule before bedtime. 60 Capsule 1 02/03/2024 Active oxyCODONE-Acetaminoph en 5-325 MG Oral Tablet (Percocet) Take 1 Tablet by mouth every 4 hours as needed for Pain, Severe. 15 Tablet 0 02/03/2024 Active documented as of this encounter (statuses as of 02/03/2024) Active Problems Problem Noted Date Diagnosed Date Normal body mass index (BMI) 01/20/2017 Mild episode of recurrent major depressive disor collins 01/20/2017 documented as of this encounter (statuses as of 02/03/2024) Immunizations Name Administration Dates Next Due COVID-19 mRNA, LNP-s, No Pre serve, 2-Dose Series (Biolase) 09/19/2021 Seasonal Influenza, PF, 6 M & above, IM , (FluLaval or Fluzone) 07/19/2020,09/12/2019 Seasonal Influenza, Quadrivalent, No Preserve, I M 09/12/2019 Seasonal Influenza, Quadrivalent, No Preserve, M dck 09/18/2021 TDAP (age 10 and older)(Boostrix) 10/12/2019 documented as of this encounter Social History Tobacco Use Types Packs/Day Years Used Date Smoking Tobacco: Never Passive Smoke Exposure: Never Smokeless Tobacco: Never Alcohol Use Standard Drinks/Week Comments Yes 2 (1 standard drink = 0.6 oz pur e alcohol) occ PHQ-2 Answer Date Recorded PHQ Adult Total Score 0 12/23/2023 Hunger Vital Sign Answer Date Recorded Within the past 12 months, y ou worried that your food would run out before you got the money to buy more. Never true 12/23/19 24 Within the past 12 months, t he food you bought just didn't last and you didn't have money to get more. Never true 12/23/2023 Sex and Gender Information Value Date Recorded Sex Assigned at Female 10/12/2019 1:36 PM EST Gender Identity Female 10/12/2019 1:36 PM EST Sexual Orientation Not on file Job Start Date Occupation Industry Not on file Not on file Not on file documented as of this encounter Last Filed Vital Signs Vital Sign Reading Time Taken Comments Blood Pressure 118/72 02/03/2024 1:18 PM EDT Pulse - - Temperature 36.7 C (98.1 F) 02/03/2024 1:18 PM ED T Respiratory Rate - - Oxygen Saturation - - Inhaled Oxygen Concentration - - Weight 83.5 kg (184 lb) 02/03/2024 1:18 PM EDT Height 165.1 cm (5' 5") 02/03/2024 1:18 PM EDT Body Mass Index 30.62 02/03/2024 1:18 PM EDT documented in this encounter Functional Status Functional Status Response Date of Assess ment Are you deaf or do you have serious difficulty h earing? No 07/17/2016 Are you blind or do you have serious difficulty seeing, even when wearing glasses? No 07/17/2016 Do you have serious difficul ty walking or climbing stairs? (5 years old or older) No 07/17/2016 Do you have difficulty dress ing or bathing? (5 years old or older) No 07/17/2016 Because of a physical, menta l, or emotional condition, do you have difficulty doing errands alone such as visiting a doctor s office or shopping? (15 years old or older) No 07/17/20 16 Cognitive Status Response Date of Assessm ent Because of a physical, menta l, or emotional condition, do you have serious difficulty concentrating, remembering, or making decisions? (5 years old or older) No 07/17/2016 documented as of this encounter Progress Notes * Mini Abraham MD - 02/03/2024 1:43 PM EDT HISTORY & PHYSICAL EXAMINATION - Gynecology [facility] [address] [place] [address] Name: Almita Hernandez Location: GYNECOLOGY/OBSTETRICS [facility] Date: 02/03/2024 Time: 1:43 PM PRESENTING PROBLEM: Uterine fibroids HPI: Almita Hernandez is a 43 year old female patient who presents witj symptomatic uterine fibroids. 43 year old with unknown LMP presents with uterine fibroids. Patient in a same sex relationship and was undergoing oocyte retrieval. Patient with a known uterine fibroid, but size has increased over time. Patient reports menses worsening over the years. Patient reports monthly menses with heavy flow. Patient was started on OCPs in due to heavy menses. Patient also was told that the control pills can slow the growth of her fibroid. Patient re ports without OCPs she also has severe dysmenorrhea and unable to function and perform daily activities. Patient also reports increased pelvic pressure affecting urination. Patient can not urinate with a tampon in place. MRI in Jun 2023 1. Multiple uterine intramural and subserosal fibroids. 2. Numerous subcentimeter peripheral follicles in both ovaries. PAST MEDICAL HISTORY: Past Medical History: Diagnosis Date Depression PAST SURGICAL HISTORY: Past Surgical History: Procedure Laterality Date EGD, W/ENDOSCOPIC US 09/10/2021 gastritis, CBD stones / ESOPHAGOGASTRODUODENOSCOPY (EGD), FLEXIBLE, TRANSORAL, ENDOSCOPIC ULTRASOUND performed by Rommel Gipson DO at ENDOSCOPY [facility] ERCP, DIAGNOSTIC, SPECIMEN COLLECTION 09/10/2021 choledocholithiasis, stent placed / ENDOSCOPIC RETROGRADE CHOLANGIOPANCREATOGRAPHY (ERCP) DIAGNOSTIC performed by Rommel Gipson DO at ENDOSCOPY [facility] LAPAROSCOPY, CHOLECYSTECTOMY WITH CHOLANGIOGRAPHY N/A 08/23/2021 LAPAROSCOPY, CHOLECYSTECTOMY WITH CHOLANGIOGRAPHY 08/23/2021 LAPAROSCOPIC CHOLECYSTECTOMY WITH CHOLANGIOGRAM performed by Wilton Canseco MD at OR [facility] FAMILY HISTORY: Family History Problem Relation Age of Onset Hypertension Mother controlled without medication No Known Problems Father No Known Problems Sister Diabetes Grandmother (Maternal) Heart Disorder Grandmother (Maternal) CABG Other (Other) Grandfather (Maternal) Amyloidosis No Known Problems Grandmother (Paternal) Neurological Disorder Grandfather (Paternal) Parkinson's Alcohol and Other Disorders Associated Other Alcoholism- mother's side of the family No Known Problems Sister SOCIAL HISTORY: Social History Socioeconomic History Marital status: Spouse name: Not on file Number of children: Not on file Years of education: Not on file Highest education level: Not on file Occupational History Employer: [employer] Tobacco Use Smoking status: Never Passive exposure: Never Smokeless tobacco: Never Substance and Sexual Activity Alcohol use: Yes Alcohol/week: 2.0 standard drinks of alcohol Types: 2 12 oz of beer per week Comment: occ Drug use: No Sexual activity: Yes Partners: Female Other Topics Concern Not on file Social History 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 [employer] Financial Resource Strain: Not on file Food Insecurity: No Food Insecurity (12/23/2023) Hunger Vital Sign Worried About Running Out of Food in the Last Year: Never true Ran Out of Food in the Last Year: Never true Transportation Needs: Not on file Physical Activity: Not on file Stress: Not on file Social Connections: Not on file Intimate Partner Violence: Not on file Housing Stability: Not on file CURRENT MEDICATIONS: Current Outpatient Medications Medication Sig Dispense Refill [facility] 1.5/30 1.5-30 MG-MCG Oral Tablet TAKE BY MOUTH 1 TABLET IN THE MORNING. Strength: 1.5-30 MG-MCG 84 Tablet 3 Sertraline HCl 100 MG Oral Tablet (Zoloft) TAKE 1 TABLET BY MOUTH EVERY DAY IN THE MORNING 90 Tablet 3 ALPRAZolam 0.25 MG Oral Tablet (Xanax) Take 1 Tablet by mouth 3 times a day as needed for Anxiety. 10 Tablet 0 Ibuprofen 600 MG Oral Tablet (Motrin) Take 1 Tablet by mouth every 6 hours as needed (pain). With food. 30 Tablet 1 Acetaminophen 325 MG Oral Tablet (Tylenol) Take 2 Tablets by mouth every 6 hours as needed for Pain, Moderate. 30 Tablet 1 Simethicone 80 MG Oral Tablet Chewable (Mylicon) Take 1 Tablet by mouth every 6 hours as needed forGas. 30 Tablet 0 Docusate Sodium 100 MG Oral Capsule (Colace) Take 1 Capsule by mouth in the morning and 1 Capsule before bedtime. 60 Capsule 1 oxyCODONE-Acetaminophen 5-325 MG Oral Tablet (Percocet) Take 1 Tablet by mouth every 4 hours as needed for Pain, Severe. 15 Tablet 0 No current facility-administered medications for this visit. ALLERGIES: Review of patient's allergies indicates: No Known Allergies IMAGING EXAM: MRI PELVIS WITHOUT AND WITH CONTRAST HISTORY: Uterine fibroids. COMPARISON: None. TECHNIQUE: Multiplanar multisequence MRI of the pelvis without and with intravenous contrast was performed andreviewed. CONTRAST: Gadavist intravenously. FINDINGS: UTERUS: Anteverted, enlarged, 10.1 x 10.3 x 12.1 cm. Myometrium: Multiple T2 hypointense lesions represent intramural and subserosal fibroids. No submucosal fibroids. The largest fibroids are as follows: Right dorsal uterine body intramural 9.4 x 8.0 x 7.9 cm. Left dorsal uterine body intramural 1.9 x 2.5 x 2.4 cm. Left ventral lower uterine segment subserosal 1.9 x 3.0 x 3.0 cm. Left ventral uterine fundus subserosal 2.0 x 3.1 x 2.8 cm. Left lateral lower uterine segment intramural 1.8 x 1.2 x 1.3 cm. Endometrium: 4 mm in thickness, which is within normal limits. Junctional zone: No thickening or T2 hyperintense foci to suggest adenomyosis. Cervix: Unremarkable, with preservation of the normal low signal stroma on the T2 weighted images. RIGHT OVARY: Spheroid, 3.4 x 3.1 x 2.7 cm, with about 15 peripheral subcentimeter follicles. LEFT OVARY: Spheroid, 2.7 x 2.5 x 3.3 cm, with about 15 peripheral subcentimeter follicles. URINARY BLADDER: Unremarkable. LYMPH NODES: Not enlarged. BOWEL: Visualized bowel is unremarkable. MUSCULOSKELETAL: Visualized bone marrow signal is unremarkable. PERITONEUM: Trace free fluid. RETROPERITONEUM: Unremarkable. ABDOMINAL WALL: Unremarkable. IMPRESSION: 1. Multiple uterine intramural and subserosal fibroids. 2. Numerous subcentimeter peripheral follicles in both ovaries. REVIEW OF SYSTEMS: Constitutional: (-) fever chills sweats or weight loss Cardiovascular: (-) negative: no chest pain, dyspnea, syncope, or palpitations Pulmonary: (-) negative: no cough, wheezing, or shortness of breath Abdominal/GI: (-) negative: no pain, heartburn, dysphagia, bleeding, change in bowel habits, nauseaor vomiting Female : (+) pelvic pressure, +heavy menstrual bleeding PHYSICAL EXMINATION: Most Recent Vital Signs: BP 118/72 | Temp 36.7 C (98.1 F) | Ht 1.651 m (5' 5") | Wt 83.5 kg (184 lb) | BMI 30.62 kg/m | BSA 1.96 m Constitutional: no acute distress Lungs: normal Heart: normal Abdomen: abdomen soft, non-tender, normal bowel sounds, and no masses or organomegaly IMPRESSION: 43 yo G0 with a multi-fibroid uterus, largest fibroid is 9.4 cm. Patient desires to maintain uterus for possible future fertility. Discussed myomectomy. Discussed abdominal approach which will allow for removal of all the fibroids. Discussed with an abdominal approach, larger incision, longer time to return to regular activity, increased risk of wound infection.Discussed laparoscopic approach and the removal of the largest fibroid. Discussed that all fibroidsmay not be removed due to loss of tactile sensation. Discussed with laparoscopy, smaller incision, quicker recovery, less blood loss. Also discussed if through any approach the endometrium is breached, then subsequent pregnancies will warrant delivery via section. Patient desires to proceed with abdominal myomectomy. PLAN: Exploratory laparotomy and abdominal myomectomy The R/B of surgery were discussed w/ the pt to include, but not limited to bleeding/transfusion, infection, wound breakdown/poor healing, damage to organs in abd/pelvis w/ possible need for further surgical repair, blood clot, PE/OH/stroke. Pt understands these risks and consents to surgery. Post-op operative medications prescribed. Mini Abraham MD 02/03/2024 1:43 PM [facility] [address] [place] [id number] documented in this encounter Plan of Treatment Upcoming Encounters Date Type Department Care Team (Late st Contact Info) Description 03/09/2024 1:30 PM EDT Office Visit Gynecology/Obstetrics Araceli Corey [address] [place] [phone] Mini Abraham MD [address] [place] [id number] Health Maintenance Due Date Last Done Comments HPV/Co-Test 2012 Mammogram 11/06/2024 11/06/2023, 10/02/2022 Cervical Cancer Screening 06/05/2025 Pap Smear 06/05/2025 06/05/2022, 12/03, 04/02/2016 Diabetes Screening 06/19/2025 06/19/2022, 01/22/2017 Lipid Panel 02/10/2028 02/09/2023, 01/22/2017 DTaP,Tdap,and Td Vaccines (2 - Td or Tdap) 10/12/2029 10/12/2019 Influenza Vaccine (FLU shot) Completed 08/13/2023, 07/11/2022, 09/18/2021, Additional history exists COVID-19 Vaccine Completed 10/01/2023, 09/19/2021 GARDASIL-HPV IMMUNIZATION SERIES Aged Out No longer eligible based on patient's age to complete this topic Hepatitis B Discontinued MENINGOCOCCAL (MENACTRA/MENVEO) Aged Out No longer eligible based on patient's age to complete this topic Pneumococcal Vaccine: Pediatrics (0 to 5 Years) and At-Risk Patients (6 to 64 Years) Aged Out No longer eligible based on patient's age to complete this topic documented as of this encounter Medical Devices Not on filedocumented as of this encounter Visit Diagnoses Diagnosis Preop testing- Primary Preoperative examination, unspecified documented in this encounter Advance Directives Latest Code Status on File Code Status Date Activated Date Inactivated Comments Full Code 08/23/2021 10:11 AM 08/23/2021 6:39 PM Th is order reflects the patients wishes and were consensually agreed upon. Care Teams Site Interpreter Relationship Specialty Start Date End Date Manasa Dickinson DO [address] [place] [facility] [place] [address] PCP - General Family Medicine 11/11/19 documented as of this encounter
--- OUTSIDE RECORDS SUMMARY | 2024-02-20 10:43 | External Medical Summary | Summary of Care ---
Author Name Unknown Organization [facility] Address [address] [place] [address] Phone [phone] Care Team Providers Care Land Development Manager Name Role Phone Manasa Dickinson DO Primary Care Provider Reason for Visit * Reason Comments Follow Up Pt here for her 6 mo [facility] check up Encounter Details Date Type Department Care Team (Late st Contact Info) Description 12/23/2023 10:50 AM EDT Office Visit [facility] [address] [facility] [place] [id number] Manasa Dickinson DO [address], [place] [id number] Anxiety disorder, unspecified type* Allergies No known active allergiesdocumented as of this encounter (statuses as of 12/24/2023) Medications Medication Sig Dispensed Refills Start Date End Date Status Mirela VALENZUELA 1.5-30 MG-MCG Oral TabletIndications: Menorrhagia with irregular cycle TAKE BY MOUTH 1 TABLET IN THE MORNING. Strength: 1.5-30 MG-MCG 84 Tablet 3 06/12/2023 Active Sertraline HCl 100 MG Oral Tablet (Zoloft)Indication s:Mild episode of recurrent major depressive disorder (HCC) TAKE 1 TABLET BY MOUTH EVERY DAY IN THE MORNING 90 Tablet 3 06/12/2023 Active ALPRAZolam 0.25 MG Oral Tablet (Xanax)Indications :Anxiety disorder, unspecified type Take 1 Tablet by mouth 3 times a day as needed for Anxiety. 10 Tablet 0 12/23/2023 Active ProAir HFA 108 (90 Base) MCG/ACT Inhalation Aerosol SolutionIndication s:Bronchitis due to COVID-19 virus Inhale 2 Puffs by mouth every 4 hours as needed for Wheezing. 6.7 g 3 06/12/2023 12/23/2023 Discontinued (Patient preference/d iscontinuati on) ALPRAZolam 0.25 MG Oral Tablet (Xanax) Take 1 Tablet by mouth 3 times a day as needed for Anxiety. 10 Tablet 0 10/09/2023 12/23/2023 Discontinued (Refill) documented as of this encounter (statuses as of 12/24/2023) Active Problems Problem Noted Date Diagnosed Date Normal body mass index (BMI) 01/20/2017 Mild episode of recurrent major depressive disor collins 01/20/2017 documented as of this encounter (statuses as of 12/24/2023) Immunizations Name Administration Dates Next Due COVID-19 mRNA, LNP-s, No Pre serve, 2-Dose Series (MyLife) 09/19/2021 Seasonal Influenza, PF, 6 M & above, IM , (FluLaval or Fluzone) 07/19/2020,09/12/2019 Seasonal Influenza, Quadrivalent, No Preserve, I M 09/12/2019 Seasonal Influenza, Quadrivalent, No Preserve, M dck 09/18/2021 TDAP (age 10 and older)(Boostrix) 10/12/2019 documented as of this encounter Social History Tobacco Use Types Packs/Day Years Used Date Smoking Tobacco: Never Passive Smoke Exposure: Never Smokeless Tobacco: Never Tobacco Cessation:Counseling Given: Not Answered Alcohol Use Standard Drinks/Week Comments Yes 2 [...] file Not on file Not on file Travel History Travel Start Travel End [facility] 12/13/2023 12/18/2023 documented as of this encounter Last Filed Vital Signs Vital Sign Reading Time Taken Comments Blood Pressure 122/70 12/23/2023 11:31 AM EDT Pulse 68 12/23/2023 11:31 AM EDT Temperature 36.7 C (98 F) 12/23/2023 11:31 AM EDT Respiratory Rate 16 12/23/2023 11:31 AM EDT Oxygen Saturation 98% 12/23/2023 11:31 AM EDT Inhaled Oxygen Concentration - - Weight 83.9 kg (185 lb) 12/23/2023 11:31 AM EDT Height - - Body Mass Index 30.79 09/02/2023 8:32 AM EST documented in this encounter Functional Status Functional [...] as of this encounter Progress Notes * Manasa Dickinson, - 12/23/2023 11:40 AM EDT Subjective: Almita Rivera Defenderphil is a 43 year old female. Chief Complaint Patient presents with Follow Up Pt here for her 6 month check up HPI: 43 year old female here today for a medication follow-up. She has gained weight. Stress with , and they have a fertilized egg, and may carry . Will be getting fibroid surgery to get these removed. They have 4 embryos. Mammogram is up to date 100 mg daily zolfot and stable. Used the xanax to Gordon this helped PHM: Patient Active Problem List Diagnosis Code Normal body mass index (BMI) [id number] Mild episode of recurrent major depressive disorder (HCC) F33.0 Current Outpatient Medications Medication Sig Dispense Refill [facility] 1.5-30 MG-MCG Oral Tablet TAKE BY MOUTH 1 TABLET IN THE MORNING. Strength: 1.5-30 MG-MCG 84 Tablet 3 Sertraline HCl 100 MG Oral Tablet (Zoloft) TAKE 1 TABLET BY MOUTH EVERY DAY IN THE MORNING 90 Tablet 3 ALPRAZolam 0.25 MG Oral Tablet (Xanax) Take 1 Tablet by mouth 3 times a day as needed for Anxiety. 10 Tablet 0 No current facility-administered medications for this visit. Review of patient's allergies indicates: No Known Allergies Objective: BP 122/70 | Pulse 68 | Temp 36.7 C (98 F) (Infrared ) | Resp 16 | Wt 83.9 kg (185 lb) | SpO2 98% | BMI 30.79 kg/m | BSA 1.96 m Physical Exam: General: alert, healthy, and no distress Heart: regular rate & rhythm, no murmur, and no gallops Lungs: chest symmetric with normal AP diameter, no chest deformities noted, no chest wall tenderness, lungs clear to auscultation Abdomen: abdomen soft, non-tender, normal bowel sounds, and no masses or organomegaly Extremities: no edema ASSESSMENT/PLAN: Anxiety disorder, unspecified type (Primary) - ALPRAZolam 0.25 MG Oral Tablet (Xanax); Take 1 Tablet by mouth 3 times a day as needed for Anxiety. Follow Up: Return in about 6 months (around 06/24/2024). Manasa Dickinson DO documented in this encounter Nursing Notes * Caro Robetrson LPN - 12/23/2023 11:30 AM EDT Chief Complaint Patient presents with Follow Up Pt here for her 6 month check up documented in this encounter Plan of Treatment Health Maintenance Due Date Last Done Comments HPV/Co-Test 2012 Mammogram 11/06/2024 11/06/2023, 10/02/2022 Depression Screening 12/22/2024 12/23/2023 Cervical Cancer Screening 06/05/2025 Pap Smear 06/05/2025 [...] as of this encounter Visit Diagnoses Diagnosis Anxiety disorder, unspecified type- Primary documented in this encounter Advance Directives Latest Code Status on File Code Status Date Activated Date Inactivated Comments Full Code 08/23/2021 10:11 AM 08/23/2021 6:39 PM Th is order reflects the patients wishes and were consensually agreed upon. Care Teams Land Development Manager Relationship Specialty Start Date End Date Manasa Dickinson DO [address] [place] [address] PCP - General Family Medicine 11/11/19 documented as of this encounter"
--- OUTSIDE RECORDS SUMMARY | 2024-02-20 10:44 | External Medical Summary | Summary of Care ---
Author Name Unknown Organization [facility] Address [address] [place] [address] Phone [phone] Care Team Providers Care Wired Sweatband Cutter Name Role Phone RanjitManasa wiley Primary Care Provider Reason for Visit * Reason Comments Hedis Registered Nurse Rn Return Encounter Details Date Type Department Care Team (Late st Contact Info) Description 09/02/2023 8:30 AM EST Office Visit Gynecology/Obstetric s [facility] [address] [place] [address] Mini Abraham MD [address] [place] [address] Intramural and subserous leiomyoma of uterus*; Menorrhagia with regular cycle; Secondary dysmenorrhea Allergies No known active allergiesdocumented as of this encounter (statuses as of 09/02/2023) Medications Medication Sig Dispensed Refills Start Date End Date Status Mirela VALENZUELA 1.5-30 MG-MCG Oral TabletIndications:M enorrhagia with irregular cycle TAKE BY MOUTH 1 TABLET IN THE MORNING. Strength: 1.5-30 MG-MCG 84 Tablet 3 06/12/2023 Active Sertraline HCl 100 MG Oral Tablet (Zoloft)Indications :Mild episode of recurrent major depressive disorder (HCC) TAKE 1 TABLET BY MOUTH EVERY DAY IN THE MORNING 90 Tablet 3 06/12/2023 Active ProAir HFA 108 (90 Base) MCG/ACT Inhalation Aerosol SolutionIndications :Bronchitis due to COVID-19 virus Inhale 2 Puffs by mouth every 4 hours as needed for Wheezing. 6.7 g 3 06/12/2023 Active Additional Information Patient not taking.Reported on 09/02/2023 ALPRAZolam 0.25 MG Oral Tablet (Xanax) Take 1 Tablet by mouth 3 times a day as needed for Anxiety. 10 Tablet 0 07/16/2023 Active documented as of this encounter (statuses as of 09/02/2023) Active Problems Problem Noted Date Diagnosed Date Normal body mass index (BMI) 01/20/2017 Mild episode of recurrent major depressive disor collins 01/20/2017 documented as of this encounter (statuses as of 09/02/2023) Immunizations Name Administration Dates Next Due COVID-19 mRNA, LNP-s, No Pre serve, 2-Dose Series ([employer]iegler) 09/19/2021 SEASONAL INFLUENZA, PF, 6 M & Above, IM , (FLULAVAL or FLUZONE) 07/19/2020,09/12/2019 Seasonal Influenza, Quadrivalent, No Preserve, I M 09/12/2019 Seasonal Influenza, Quadrivalent, No Preserve, M dck 09/18/2021 TDAP (age 10 and older)(Boostrix) 10/12/2019 documented as of this encounter Social History Tobacco Use Types Packs/Day Years Used Date Smoking Tobacco: Never Smokeless Tobacco: Never Alcohol Use Standard Drinks/Week Comments Yes 2 (1 standard drink = 0.6 oz pur e alcohol) occ PHQ-2 Answer Date Recorded PHQ Adult Total Score 0 06/05/2022 Hunger Vital Sign Answer Date Recorded Within the past 12 months, y ou worried that your food would run out before you got the money to buy more. Never true 12/02/19 23 Within the past 12 months, t he food you bought just didn't last and you didn't have money to get more. Never true 12/02/2022 Sex and Gender Information Value Date Recorded Sex Assigned at Female 10/12/2019 1:36 PM EST Gender Identity Female 10/12/2019 1:36 PM EST Sexual Orientation Not on file Job Start Date Occupation Industry Not on file Not on file Not on file documented as of this encounter Last Filed Vital Signs Vital Sign Reading Time Taken Comments Blood Pressure 124/72 09/02/2023 8:32 AM EST Pulse - - Temperature - - Respiratory Rate - - Oxygen Saturation - - Inhaled Oxygen Concentration - - Weight 80.7 kg (178 lb) 09/02/2023 8:32 AM EST Height 165.1 cm (5' 5") 09/02/2023 8:32 AM EST Body Mass Index 29.62 09/02/2023 8:32 AM EST documented in this [...] Progress Notes * Mini Abraham MD - 09/02/2023 9:07 AM EST Patient Name: Almita Hernandez Patient CC: Uterine fibroids, Heavy menstrual bleeding, Dysmenorrhea Context: (HPI) 43 year old with LMP 08/03/2023 presents to discuss uterine fibroids. Patient in a same sex [...] unable to function and perform daily activities. Recent MRI reveals: 1. Multiple uterine intramural and subserosal fibroids. 2. Numerous subcentimeter peripheral follicles in both ovaries. Past Medical Hx: Past Medical History: Diagnosis Date Depression Past Surgical Hx: Past Surgical History: Procedure Laterality Date EGD, W/ENDOSCOPIC US 09/10/2021 gastritis, CBD stones / ESOPHAGOGASTRODUODENOSCOPY (EGD), FLEXIBLE, TRANSORAL, ENDOSCOPIC ULTRASOUND performed by Rommel Gipson DO at ENDOSCOPY [facility] ERCP, DIAGNOSTIC, SPECIMEN COLLECTION 09/10/2021 choledocholithiasis, stent placed / ENDOSCOPIC RETROGRADE CHOLANGIOPANCREATOGRAPHY (ERCP) DIAGNOSTIC performed by Rommel Gipson DO at ENDOSCOPY [facility] LAPAROSCOPY, CHOLECYSTECTOMY WITH CHOLANGIOGRAPHY N/A 08/23/2021 LAPAROSCOPY, CHOLECYSTECTOMY WITH CHOLANGIOGRAPHY 08/23/2021 LAPAROSCOPIC CHOLECYSTECTOMY WITH CHOLANGIOGRAM performed by Wilton Canseco MD at OR [facility] Social Hx: Social History Socioeconomic History Marital status: Occupational History Employer: [employer] [id number] Tobacco Use Smoking status: Never Smokeless tobacco: Never Substance and Sexual Activity Alcohol use: Yes Alcohol/week: 2.0 standard drinks of alcohol Types: 2 12 oz of beer per week Comment: occ Drug use: No Sexual activity: Yes Partners: Female Social History 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 [employer] Food Insecurity: No Food Insecurity (12/02/2022) Hunger Vital Sign Worried About Running Out of Food in the Last Year: Never true Ran Out of Food in the Last Year: Never true Allergy: Review of patient's allergies indicates: No Known Allergies Family HX: Family History Problem Relation Age of Onset Hypertension Mother controlled without medication No Known Problems Father No Known Problems Sister Diabetes Grandmother (Maternal) Heart Disorder Grandmother (Maternal) CABG Other (Other) Grandfather (Maternal) Amyloidosis No Known Problems Grandmother (Paternal) Neurological Disorder Grandfather (Paternal) Parkinson's Alcohol and Other Disorders Associated Other Alcoholism- mother's side of the family No Known Problems Sister ROS: Constitutional: no weight loss, no weakness, and no fatigue Eyes: no worsening of vision ENT: no hearing loss, no congestion Resp: no cough, no sputum, no wheezing, and no SOB Cardiac: no chest pain, no orthopnea, and no dyspnea on exertion GI: no pain, no heartburn, no diarrhea, no constipation Musculoskeletal: no significant joint or muscle pain and no swelling Female : no dysuria, no incontinence, no vaginal discharge, + abnormally heavy periods, and + dysmenorrhea (currently on OCPs) Neuro: no memory loss and no weakness Psych: denies feeling down, depressed or hopeless in past month, denies being bothered by little interest or pleasure in doing things in past month, and no insomnia Heme: no fever, no chills, no sweats, and no bleeding/bruising Endo: no unplanned weight change Skin: no rash, no itching, and no new/changing skin lesions LABS: Results for orders placed or performed in visit on 05/04/23 ESTRADIOL Result Value Ref Range Estradiol 3,949.0 pg/mL MRI; Done Radiology at [facility] EXAM: MRI PELVIS WITHOUT AND WITH CONTRAST [...] Numerous subcentimeter peripheral follicles in both ovaries. PHYSICAL EXAMINATION Well developed. Well nourishes white female in no acute distress Vital signs BP 124/72 | Ht 1.651 m (5' 5") | Wt 80.7 kg (178 lb) | LMP 08/03/2023 | BMI 29.62 kg/m | BSA 1.92m HEENT : WNL Neurologic: grossly intact Extremity: No Cyanoses, clubbing or edema. No lesions on either extremeties Psych: Alert, awake and oriented X 3. Normal gait A/P: 43 yo G0 with a multi-fibroid uterus, largest fibroid is 9.4 cm. Patient desires to maintain uterus for possible future fertility. Discussed myomectomy. Discussed abdominal approach which will allow for removal of all the fibroids. Discussed with an abdominal approach, larger incision, longer time to return to regular activity, increased risk of wound infection. Discussed laparoscopic approach and the removal of the largest fibroid. Discussed that all fibroids may not be removed due to loss of tactile sensation. Discussed with laparoscopy, smaller incision, quicker recovery, less blood loss. Also discussed if through any approach the endometrium is breached, then subsequent pregnancieswill warrant delivery via section. Reviewed in detail surgery, benefits and risks. Patient will like to review the information with significant other and will notify the clinic if she desires further treatment via myomectomy. All questions answered. Intramural and subserous leiomyoma of uterus (Primary) Menorrhagia with regular cycle Secondary dysmenorrhea I spent a total of 30-39 minutes (exact time 35 mins) on the date of service in preparation, delivery, and documentation of the care provided to Almita Rivera Defenderfer excluding any time spent in the performance of separately billed services. Mini Abraham MD 09/02/2023 9:07 AM Gynecology/Obstetrics [address] [address] documented in this encounter Nursing Notes * Deanna Saab LPN - 09/02/2023 8:32 AM EST Here to discuss fibroids documented in this encounter Plan of Treatment Upcoming Encounters Date Type Department Care Team (Late st Contact Info) Description 10/07/2023 10:00 AM EST Imaging Radiology [facility] [address] [facility] [place] [address] [facility] [place] [address] 12/11/2023 10:10 AM EST [facility] [place] [address] [facility] [phone] Manasa Dickinson [facility] [address] [facility] [address] Health Maintenance Due Date Last Done Comments Hepatitis B (1 of 3 - 3-dose series) 1982 HPV/Co-Test 2012 COVID-19 Vaccine (2 - 2022- season) 2023 09/19/2021 Depression Screening 06/05/2023 06/05/2022 Influenza Vaccine (FLU shot) (#1) 2023 07/11/2022, 09/18/2021, 07/19/2020, Additional history exists Mammogram 10/02/2023 10/02/2022 Cervical Cancer Screening 06/05/2025 Pap Smear 06/05/2025 06/05/2022, 12/03, 04/02/2016 Diabetes Screening 06/19/2025 06/19/2022, 01/22/2017 Lipid Panel 02/10/2028 02/09/2023, 01/22/2017 DTaP,Tdap,and Td Vaccines (2 - Td or Tdap) 10/12/2029 10/12/2019 GARDASIL-HPV IMMUNIZATION SERIES Aged Out No longer eligible based on patient's age to complete this topic MENINGOCOCCAL (MENACTRA/MENVEO) Aged Out No longer eligible based on patient's age to complete this topic Pneumococcal Vaccine: Pediatrics (0 to 5 Years) and At-Risk Patients (6 to 64 Years) Aged Out No longer eligible based on patient's age to complete this topic documented as of this encounter Medical Devices Not on filedocumented as of this encounter Visit Diagnoses Diagnosis Intramural and subserous leiomyoma of uterus- Primary Menorrhagia with regular cycle Excessive or frequent menstruation Secondary dysmenorrhea Dysmenorrhea documented in this encounter Advance Directives Latest Code Status on File Code Status Date Activated Date Inactivated Comments Full Code 08/23/2021 10:11 AM 08/23/2021 6:39 PM Th is order reflects the patients wishes and were consensually agreed upon. Care Teams Wired Sweatband Cutter Relationship Specialty Start Date End Date Manasa Dickinson DO [address] [place] [facility] [place] [address] PCP - General Family Medicine 11/11/19 documented as of this encounter
--- OUTSIDE RECORDS SUMMARY | 2024-02-20 10:44 | External Medical Summary | Summary of Care ---
Author Name Unknown Organization [facility] Address [address] [place] [address] Phone [phone] Care Team Providers Care Patient Coordinator Name Role Phone BrigidoManasa melissa Primary Care Provider Reason for Visit * Reason Comments Sore Throat Encounter Details Date Type Department Care Team (Latest Contact Info) Description 10/06/2023 10:00 AM EST Convenient Care Visit [facility] [address] [place] [address] Valencia Teague PA-C [address] [place] [address] [place] [address] Pharyngitis, unspecified etiology*; Upper respiratory tract infection, unspecified type Allergies No known active allergiesdocumented as of this encounter (statuses as of 10/06/2023) Medications Medication Sig Dispensed Refills Start Date [...] as of this encounter (statuses as of 10/06/2023) Active Problems Problem Noted Date Diagnosed Date Normal body mass index (BMI) 01/20/2017 Mild episode of recurrent major depressive disor collins 01/20/2017 documented as of this encounter (statuses as of 10/06/2023) Immunizations Name Administration Dates Next Due COVID-19 mRNA, LNP-s, No Pre serve, 2-Dose Series (copygram) 09/19/2021 Seasonal Influenza, PF, 6 M & above, IM , (FluLaval or Fluzone) 07/19/2020,09/12/2019 Seasonal Influenza, Quadrivalent, No Preserve, I M 09/12/2019 Seasonal Influenza, Quadrivalent, No Preserve, M dck 09/18/2021 TDAP (age 10 and older)(Boostrix) 10/12/2019 documented as of this encounter Social History Tobacco Use Types Packs/Day Years Used Date Smoking Tobacco: Never Smokeless Tobacco: Never Tobacco Cessation:Counseling Given: [...] Sign Reading Time Taken Comments Blood Pressure 124/68 10/06/2023 10:04 AM EST Pulse 83 10/06/2023 10:04 AM EST Temperature 36.8 C (98.3 F) 10/06/2023 10:[address] Respiratory Rate 18 10/06/2023 10:04 AM EST Oxygen Saturation 96% 10/06/2023 10:04 AM EST Inhaled Oxygen Concentration - - Weight 81.6 kg (180 lb) 10/06/2023 10:04 AM EST Height - - Body Mass Index 29.95 09/02/2023 8:32 AM EST documented in this [...] No 07/17/2016 documented as of this encounter Patient Instructions * Patient Instructions* Valencia Teague PA-C - 10/06/2023 10:33 AM EST Take all medications as prescribed You can use one medication from each of the following types for symptom relief: Nasal [place]: Flonase, Nasacort, OR Nasonex, in addition to one of these medicated nasal spray use saline nasal spray to avoid dryness and thin out mucous. Two pumps in each nostril daily. Try to keepin sinuses as long as possible. OTC antihistamine: (claritin, zyrtec, xyzal or laney), one daily OTC decongestants: Sudafed, Mucinex-D (get from behind pharmacy counter, you have to show your ID) IF BEING TREATED FOR BLOOD PRESSURE OR KIDNEY DISEASE USE CORICIDIN HBP INSTEAD Continue supportive measures-- Drink plenty of fluids, rest, cool mist humidifier, hot showers. When you have a sore throat: Dry up the drip! Use an antihistamine (cetirizine, loratidine) to help with post nasal drip, or decongestants if you are over the age of 12. Continue supportive measures - rest, push fluids, as needed acetaminophen/ibuprofen per package directions for pain/fevers, salt water gargles It is important to swallow frequently (every 30 seconds). Recommend a clear, non-alcoholic liquid such as water or most fruit juices. Lozenges do not improve the overall health/pain in the retirement,as they utilize infected mucus to soothe the back of the throat. Recommend avoidance of citrus juices because these can be astringent/irritating. Recommend avoidance of dairy as this makes mucus thick and sticky. Popsicles and ice are good for people who prefer cold, and tea is good for people who prefer warm. You may also use ibuprofen or acetaminophen OTC for relief of pain or fevers. If you were Prescribed antibiotics, be sure to finish entire course even if you are feeling better. You can take florajen, a probiotic if you get nausea/diarrhea with antibiotics. Recommend taking them in between doses of antibiotic for max efficacy. Follow up with PCP within 5-7 day(s) if no improvement, sooner if worse. Go to the ED if any new or severe symptoms appear. documented in this encounter Progress Notes * Valencia Teague PA-C - 10/06/2023 10:11 AM EST Almita Rivera Defenderphil is a 43 year old female. who presents with upper respiratory symptoms for 2 day(s) Patient was accompanied by Self. HPI Signs and Symptoms include: sore throat Severity of Symptoms: Moderate Timing (how often does it occur): Constant Modifying Factors (what was done since onset of symptoms): none Constitutional: no fevers, chills, sweats, fatigue Recent illnesses in household: yes Patient has not been positive for COVID in the last 90 days-June 2023 ROS All others negative other than those noted in HPI HISTORY Patient Active Problem List Diagnosis Code Normal body mass index (BMI) [id number] Mild episode of recurrent major depressive disorder (HCC) F33.0 Current Outpatient Medications Medication Sig Dispense Refill Mirela FE 1.5/30 1.5-30 MG-MCG Oral Tablet TAKE BY MOUTH 1 TABLET IN THE MORNING. Strength: 1.5-30 MG-MCG 84 Tablet 3 Sertraline HCl 100 MG Oral Tablet (Zoloft) TAKE 1 TABLET BY MOUTH EVERY DAY IN THE MORNING 90 Tablet 3 ProAir HFA 108 (90 Base) MCG/ACT Inhalation Aerosol Solution Inhale 2 Puffs by mouth every 4 hours as needed for Wheezing. (Patient not taking: Reported on 09/02/2023) 6.7 g 3 ALPRAZolam 0.25 MG Oral Tablet (Xanax) Take 1 Tablet by mouth 3 times a day as needed for Anxiety. 10 Tablet 0 No current facility-administered medications for this visit. Past Medical History: Diagnosis Date Depression Past Surgical History: Procedure Laterality Date EGD, W/ENDOSCOPIC US 09/10/2021 gastritis, CBD stones / ESOPHAGOGASTRODUODENOSCOPY (EGD), FLEXIBLE, TRANSORAL, ENDOSCOPIC ULTRASOUND performed by Rommel Gipson DO at ENDOSCOPY [facility] ERCP, DIAGNOSTIC, SPECIMEN COLLECTION 09/10/2021 choledocholithiasis, stent placed / ENDOSCOPIC RETROGRADE CHOLANGIOPANCREATOGRAPHY (ERCP) DIAGNOSTIC performed by Rommel Gipson DO at ENDOSCOPY [facility] LAPAROSCOPY, CHOLECYSTECTOMY WITH CHOLANGIOGRAPHY N/A 08/23/2021 LAPAROSCOPY, CHOLECYSTECTOMY WITH CHOLANGIOGRAPHY 08/23/2021 LAPAROSCOPIC CHOLECYSTECTOMY WITH CHOLANGIOGRAM performed by Wilton Canseco MD at OR [facility] Review of patient's allergies indicates: No Known Allergies Family History Problem Relation Age of Onset Hypertension Mother controlled without medication No Known Problems Father No Known Problems Sister Diabetes Grandmother (Maternal) Heart Disorder Grandmother (Maternal) CABG Other (Other) Grandfather (Maternal) Amyloidosis No Known Problems Grandmother (Paternal) Neurological Disorder Grandfather (Paternal) Parkinson's Alcohol and Other Disorders Associated Other Alcoholism- mother's side of the family No Known Problems Sister Family Status Relation Status Mo Alive Fa Alive Sis Alive MGMA Alive MGFA PGMA PGFA Other (Not Specified) Sis Alive Social History Socioeconomic History Marital status: Spouse name: Not on file Number of children: Not on file Years of education: Not on file Highest education level: Not on file Occupational History Employer: [employer] [address] Tobacco Use Smoking status: Never Smokeless tobacco: [...] on file Food Insecurity: No Food Insecurity (12/02/2022) Hunger Vital Sign Worried About Running Out of Food in the Last Year: Never true Ran Out of Food in the Last Year: Never true Transportation Needs: Not on file Physical Activity: Not on file Stress: Not on file Social Connections: Not on file Intimate Partner Violence: Not on file Housing Stability: Not on file OBJECTIVE BP 124/68 | Pulse 83 | Temp 36.8 C (98.3 F) (Tympanic) | Resp 18 | Wt 81.6 kg (180 lb) | SpO2 96% | BMI 29.95 kg/m | BSA 1.93 m Physical Exam: General Appearance: awake, alert, no apparent distress HEENT: perrl and eomi Tm right: clear, normal light reflex, no erythema Tm left: clear, normal light reflex, no erythema oral pharynx clear, mucus membranes moist + red and irritated pharynx no sinus tenderness or facial pain to percussion + turbinate engorgement and discharge Neck: normal, supple, + adenopathy Respiratory: clear to auscultation, no rhonchi, no wheezes and no crackles Heart: regular rate, regular rhythm, no murmurs , no rubs and no gallops Skin: skin color, texture, turgor are normal, no rashes or significant lesions Patient instructions: Patient Instructions Take all medications as prescribed You can use one medication from each of the following types for symptom relief: Nasal [place]: Flonase, Nasacort, OR Nasonex, in addition to one of these medicated nasal spray use saline nasal spray to avoid dryness and thin out mucous. Two pumps in each nostril daily. Try to keepin sinuses as long as possible. OTC antihistamine: (claritin, zyrtec, xyzal or laney), one daily OTC decongestants: Sudafed, Mucinex-D (get from behind pharmacy counter, you have to show your ID) IF BEING TREATED FOR BLOOD PRESSURE OR KIDNEY DISEASE USE CORICIDIN HBP INSTEAD Continue supportive measures-- Drink plenty of fluids, rest, cool mist humidifier, hot showers. When you have a sore throat: Dry up the drip! Use an antihistamine (cetirizine, loratidine) to help with post nasal drip, or decongestants if you are over the age of 12. Continue supportive measures - rest, push fluids, as needed acetaminophen/ibuprofen per package directions for pain/fevers, salt water gargles It is important to swallow frequently (every 30 seconds). Recommend a clear, non-alcoholic liquid such as water or most fruit juices. Lozenges do not improve the overall health/pain in the termite technician,as they utilize infected mucus to soothe the back of the throat. Recommend avoidance of citrus juices because these can be astringent/irritating. Recommend avoidance of dairy as this makes mucus thick and sticky. Popsicles and ice are good for people who prefer cold, and tea is good for people who prefer warm. You may also use ibuprofen or acetaminophen OTC for relief of pain or fevers. If you were Prescribed antibiotics, be sure to finish entire course even if you are feeling better. You can take florajen, a probiotic if you get nausea/diarrhea with antibiotics. Recommend taking them in between doses of antibiotic for max efficacy. Follow up with PCP within 5-7 day(s) if no improvement, sooner if worse. Go to the ED if any new or severe symptoms appear. ASSESSMENT AND PLAN Pharyngitis, unspecified etiology (Primary) - STREP A SCREEN, POINT OF CARE (ENTER/EDIT) - GROUP A STREP PCR; Future; Expected date: 10/06/2023 - GROUP A STREP PCR Upper respiratory tract infection, unspecified type To begin symptom management for URI symptoms. Spoke about common OTC medications such as intranasalsteroids (Flonase, Nasocort) to help with sinus congestion, antihistamines (claritin, zyrtec, xyzalor laney) to help with rhinorrhea in addition to fever reducers such as tylenol. COVID, FLU, RSV testing deferred. To consider testing and also antibiotic therapy if symptoms do not respond to symptomatic therapy after 7 days. Care instructions given. Additional instructions per patient instructions attached. Follow up with PCP in 7-10 days if symptoms persist. Reasons to go to ED discussed with patient including but not limited to development of acute or severe symptoms. Patient agrees with the plan and demonstrates verbal understanding. Patient stable at the time of discharge. Patient goals for plan of care were discussed. Valencia Teague PA-C [address] [place] [address] documented in this encounter Nursing Notes * Joel Fernandez LPN - 10/06/2023 10:08 AM EST Almita Hernandez is a 43 year old female who presents to walk-in clinic today complaining of Chief Complaint Patient presents with Sore Throat How lon10-04-23 Tried: No OTC medicine Pt accompanied by: Self documented in this encounter Plan of Treatment Upcoming Encounters Date Type Department Care Team (Late st Contact Info) Description 10/07/2023 10:00 AM EST Imaging Radiology [facility] [address] [facility] [address] [facility] [place] [address] 10/07/2023 10:40 AM EST Office Visit Family Practice [facility] [address] [place] [address] Aurora Moran CRNP [address] [facility] [place] [address] 12/11/2023 10:10 AM EST [address] [address] Manasa Dickinson, DO [address] [facility] [id number] Pending Results Name Type Priority Associated Diagnoses Date /Time GROUP A STREP PCR Lab Routine Pharyngitis, unspecified etiology 10/06/2023 10:25 AM EST Scheduled Orders Name Type Priority Associated Diagnoses Orde r Schedule GROUP A STREP PCR Lab Routine Pharyngitis, unspecified etiology Expected: 10/06/2023, Expires: 10/06/2024 Health Maintenance Due Date Last Done Comments Hepatitis B (1 of 3 - 3-dose series) 1982 HPV/Co-Test 2012 Depression Screening 06/05/2023 06/05/2022 Influenza Vaccine (FLU shot) (#1) 2023 07/11/2022, 09/18/2021, 07/19/2020, Additional history exists Mammogram 10/02/2023 10/02/2022 Cervical Cancer Screening 06/05/2025 Pap Smear 06/05/2025 06/05/2022, 12/03, 04/02/2016 Diabetes Screening 06/19/2025 06/19/2022, 01/22/2017 Lipid Panel 02/10/2028 02/09/2023, 01/22/2017 DTaP,Tdap,and Td Vaccines (2 - Td or Tdap) 10/12/2029 10/12/2019 COVID-19 Vaccine Completed 10/01/2023, 09/19/2021 GARDASIL-HPV IMMUNIZATION [...] Not on filedocumented as of this encounter Procedures Procedure Name Priority Date/Time Associated Diagnosis Comments STREP A SCREEN, POINT OF CARE (ENTER/EDIT) Routine 10/06/2023 10:24 AM EST Pharyngitis, unspecified etiology documented in this encounter Results * STREP A SCREEN, POINT OF CARE (ENTER/EDIT) (10/06/2023 10:24 AM EST) Strep A Result Negative Negative Procedural Control Valid? Yes Lot Number [id number] Expiration Date Swab Throat swab / Unknown 10/06/2023 10:24 AM EST Valencia Teague PA-C LAB POINT OF CARE TEST ENTER/EDIT ORDERABLES documented in this encounter Visit Diagnoses Diagnosis Pharyngitis, unspecified etiology- Primary Upper respiratory tract infection, unspecified type documented in this encounter Advance Directives Latest Code Status on File Code Status Date Activated Date Inactivated Comments Full Code 08/23/2021 10:11 AM 08/23/2021 6:39 PM Th is order reflects the patients wishes and were consensually agreed upon. Care Teams Patient Coordinator Relationship Specialty Start Date End Date Manasa Dickinson DO [address] [facility] [place] [address] PCP - General Family Medicine 11/11/19 documented as of this encounter"
--- OUTSIDE RECORDS SUMMARY | 2024-02-20 10:44 | External Medical Summary ---
Author Name Unknown Address Unknown Organization [id number]:[facility] [address] [facility] [address] Laboratory Report Ordering Provider Test Date Status JUDD FAJARDO 10/06/2023 10:25:17 Final Observation Date Value Abnormality Reference (Units) Status Streptococcus pyogenes DNA [Presence] in Throat by ZOE with probe detection 10/06/2023 10:25:17 Negative. No Group A Streptococcus detected by PCR (amplified probe). Negative Final This test was developed and its performance characteristics determined by [employer]. It has not been cleared or approved by the FDA. The laboratory is regulated under CLIA as qualified to perform high- complexity testing. This test is used for clinical purposes. It should not be regarded as investigational or for research. Performing Location [facility] [address] [facility] [address] [facility] [address]
--- OUTSIDE RECORDS SUMMARY | 2024-02-20 10:44 | External Medical Summary | Summary of Care ---
Author Name Unknown Organization [facility] Address [address] [place] [address] Phone [phone] Care Team Providers Care Battery Container Tester Aluminum Name Role Phone Manasa Dickinson Primary Care Provider [phone] Reason for Visit * Reason Comments Procedure IVF Encounter Details Date Type Department Care Team (Late st Contact Info) Description 05/07/2023 9:00 AM EDT Office Visit [facility] [place] [address] [place] [address] June Kumari MD [address] [place] [address] [facility] [address] [place] [address] [facility] [address] [place] [address] [facility] [address] [place] [address] Procreative management* Allergies No known active allergiesdocumented as of this encounter (statuses as of 09/15/2023) Medications Medication Sig Dispensed Refills Start Date End Date Status Follistim AQ 900 UNT/1.08ML Subcutaneous Solution (Follitropin Beta) 250 units subcutaneously daily 2 mL 1 12/11/2022 05/07/20 23 Discontinu ed(Medicat ion List Clean Up) Ganirelix Acetate 250 MCG/0.5ML Subcutaneous Solution Prefilled Syringe 250mcg subcutaneously daily 5 mL 1 12/11/2022 05/07/20 23 Discontinu ed(Medicat ion List Clean Up) Leuprolide Acetate 1 MG/0.2ML Injection Kit (Lupron) 40 units subcutaneously once 1 Kit 0 12/11/2022 05/07/20 23 Discontinu ed(Medicat ion List Clean Up) Menopur 75 UNIT Subcutaneous Solution Reconstituted (Menotropins) Mix with 0.5ml of saline and inject 75 units subcutaneously daily 5 Each 0 12/11/2022 05/07/20 23 Discontinu ed(Medicat ion List Clean Up) Syringe Luer Slip 27G X 1/2" 1 ML As directed 10 Each 1 12/11/2022 05/07/20 23 Discontinu ed(Medicat ion List Clean Up) Sertraline HCl 100 MG Oral Tablet (Zoloft)Indication s:Mild episode of recurrent major depressive disorder (HCC) TAKE 1 TABLET BY MOUTH EVERY DAY IN THE MORNING 90 Tablet 3 12/15/2022 06/12/20 23 Discontinu ed(Refill) Mirela VALENZUELA 1.5/30 1.5-30 MG-MCG Oral Tablet TAKE BY MOUTH 1 TABLET IN THE MORNING. Strength: 1.5-30 MG-MCG 84 Tablet 3 12/15/2022 06/12/20 23 Discontinu ed(Refill) Menopur 75 UNIT Subcutaneous Solution Reconstituted (Menotropins) Mix with 0.5ml of saline and inject 75 units subcutaneously daily 5 Each 0 03/12/2023 05/07/20 23 Discontinu ed(Medicat ion List Clean Up) Syringe Luer Slip 27G X 1/2" 1 ML As directed 10 Each 1 03/12/2023 05/07/20 23 Discontinu ed(Medicat ion List Clean Up) Ganirelix Acetate 250 MCG/0.5ML Subcutaneous Solution Prefilled Syringe (Fyremadel) 250mcg subcutaneously daily 3 mL 1 03/12/2023 05/07/20 23 Discontinu ed(Medicat ion List Clean Up) Hospital, Clinic, or Other Facility Administered Medication Ordered Dose Route Frequency Start Date End Date Status D51/2 NSS infusionIndications:Procr eative management 100 mL/hr IV ONCE 05/07/2023 05/07/2023 Ended ceFAZolin in dextrose (Ancef) ivpb 1 gIndications:Procreative management 1 g IVPB ONCE 05/07/2023 05/07/2023 Ended midazolam (Versed) 2 MG/2ML inj 2 mgIndications:Procreative management 2 mg IV PUSH ONCE 05/07/2023 05/07/2023 Ended fentaNYL (PF) inj 100 mcgIndications:Procreativ e management 100 mcg IV PUSH ONCE 05/07/2023 05/07/2023 Ended ondansetron (Zofran) inj 4 mgIndications:Procreative management 4 mg IV PUSH ONCE 05/07/2023 05/07/2023 Ended ketorolac (Toradol) 30 MG/ML inj 30 mgIndications:Procreative management 30 mg IV PUSH ONCE 05/07/2023 05/07/2023 Ended documented as of this encounter (statuses as of 09/15/2023) Active Problems Problem Noted Date Diagnosed Date Normal body mass index (BMI) 01/20/2017 Mild episode of recurrent major depressive disor collins 01/20/2017 documented as of this encounter (statuses as of 09/15/2023) Immunizations Name Administration Dates Next Due COVID-19 mRNA, LNP-s, No Pre serve, 2-Dose Series ([employer]) 09/19/2021 Seasonal Influenza, PF, 6 M & [...] Sign Reading Time Taken Comments Blood Pressure 115/69 05/07/2023 11:00 AM EDT Pulse 75 05/07/2023 11:00 AM EDT Temperature 36.5 C (97.7 F) 05/07/2023 9:18 AM ED T Respiratory Rate 16 05/07/2023 11:00 AM EDT Oxygen Saturation 97% 05/07/2023 11:00 AM EDT Inhaled Oxygen Concentration - - Weight 78.3 kg (172 lb 9 oz) 05/07/2023 9:18 AM EDT Height 165.1 cm (5' 5") 05/07/2023 9:18 AM EDT Body Mass Index 28.72 05/07/2023 9:18 AM EDT documented in this encounter Functional Status [...] as of this encounter Progress Notes * June Kumari MD - 05/07/2023 10:48 AM EDT PREOPERATIVE DIAGNOSIS: Infertility Status post superovulation for IVF POSTOPERATIVE DIAGNOSIS: Infertility Status post superovulation for IVF PROCEDURE: 1. Transvaginal ultrasound 2. Transvaginal oocyte aspiration SURGEON: June Kumari M.D. ANESTHESIA: IV sedation with Versed and Fentanyl OPERATIVE FINDINGS: Multiple follicles were seen on ultrasound bilaterally. SPECIMENS: Total # oocytes: 12 EBL: less than 25 cc COMPLICATIONS: None A ''time out'' was initiated by Dr Kumari at 1007 prior to procedure.The patient was identified by name and date of . The correct procedure, and correct site identified. Correct positioning (as applicable). There is availability of necessary equipment. Pt states she not allergic to latex. PROCEDURE: The patient was taken to the procedure room, placed in dorsal lithotomy on the examination table, and prepped and draped in the usual sterile fashion. The ultrasound vaginal probe was sheathed with a sterile condom and dressed with a sterile needle guide. The aspiration needle and aspirator were then tested to ensure that there was 180 mmHg of pressure. After adequate anesthesia was given, one ovary was punctured with the single lumen 17G oocyte aspiration needle under ultrasound guidance. This procedure was continued in a [id number] fashion until all follicles were aspirated. The needle was flushed between ovaries and then a similar procedure was performed on the other ovary (if 2 ovaries were present with follicles). Following this, there was no evidence of active internal bleeding as could be determined by pelvic sonography and the vagina was checked for adequate hemostasis. Throughout the procedure the patient's vital signs and oxygen saturation were monitored and were stable. The patient tolerated the procedure well without complication. Sedation start: 1007 Sedation last dose: 1011 Procedure complete: 1030 Qualified sedation observer: June Kumari M.D. * June Kumari MD - 05/07/2023 9:37 AM EDT H&P unchanged. BP 124/82 | Pulse 70 | Temp 36.5 C (97.7 F) (Temporal Artery) | Resp 21 | Ht 1.651 m (5' 5") | Wt 78.3 kg (172 lb 9 oz) | SpO2 100% | BMI 28.72 kg/m | BSA 1.89 m Alert and oriented X 3. Procedure reviewed Aware may not be able to access right ovary due to fibroid IVF/PGT-A donor sperm June Kumari M.D. * Ly Albarado RN - 05/07/2023 9:00 AM EDT You will receive a call on 05/08/23, late AM, for fertilization check. Do not drive a car or operate electrical appliances/machinery for 24 hrs following procedure. Do not sign any legal documents or make any important decisions for 24 hours following procedure. The following day you can return to full activity unless otherwise instructed. Eat and drink normally as tolerated. Increase water intake 8-10 glasses , bran and fiber in diet todecrease constipation. Tylenol or ibuprofen for discomfort It is normal to have a small amount of vaginal bleeding post procedure. Symptoms to watch for and report to your physician: Heavy vaginal bleeding Severe abdominal pain High fever (greater that 100 degrees F) Persistent nausea and vomiting Excessive thirst, sweating Severe bloating and constipation If you have any questions or problems, Dr. Kumari's patients-please call [phone]. After hours, her phones are managed by the answering service-please leave a detailed message and call back number. Please remember that a blocked call may be your provider trying to reach you back. documented in this encounter H&P Notes * June Kumari MD - 05/07/2023 9:36 AM EDT 42 year old "Key" OB History 0 Para 0 Term 0 0 AB 0 Living 0 SAB 0 IAB 0 Ectopic 0 Multiple 0 Live Births 0 Planning to be oocyte donor for partner, Almita Osborne" Kast COH for oocyte retrieval under conscious sedation IVF/PGT-A donor sperm Previous retrieval unable to access right ovary due to fibroid Past Medical History: Diagnosis Date Depression Past Surgical History: Procedure Laterality Date EGD, W/ENDOSCOPIC US 09/10/2021 gastritis, CBD stones / ESOPHAGOGASTRODUODENOSCOPY (EGD), FLEXIBLE, TRANSORAL, ENDOSCOPIC ULTRASOUND performed by Rommel Gipson DO at [facility] ERCP, DIAGNOSTIC, SPECIMEN COLLECTION 09/10/2021 choledocholithiasis, stent placed / ENDOSCOPIC RETROGRADE CHOLANGIOPANCREATOGRAPHY (ERCP) DIAGNOSTIC performed by Rommel Gipson DO at [facility] LAPAROSCOPY, CHOLECYSTECTOMY WITH CHOLANGIOGRAPHY N/A 08/23/2021 LAPAROSCOPY, CHOLECYSTECTOMY WITH CHOLANGIOGRAPHY 08/23/2021 LAPAROSCOPIC CHOLECYSTECTOMY WITH CHOLANGIOGRAM performed by Wilton Canseco MD at [facility] SH: Tobacco:No FH: Breast ca NO, uterine ca NO, ovary ca NO, colon ca NO, no genetic diseases either family Review of systems: ROS: No headache, blurred vision, blindness No sore throat or sinus congestion No tinnitus, no voice changes No nausea, vomiting Appetite OK, weight stable No diarrhea or constipation no B/U/F urination No chest pain, palpitatons or dyspnea on exertion No SOB or cough No weakness No numbness or tingling No diaphoresis No heat or cold intolerance Lung CTA CVS RRR Abd soft, NT Ext negative Plan to proceed to oocyte retrieval under conscious sedation. Discussed risks of procedure which include but are not exclusive of bleeding, infections, damage adjacent organ and need for open surgeryto repair. Also discussed risk complication not diagnosed at time of surgery and requires reoperation at a later date. After all her questions were answered, consent was obtained. June Kumari M.D. documented in this encounter Nursing Notes * Ly Albarado RN - 05/07/2023 11:10 AM EDT IV was d/c by Cornell Albarado RN at 1105. Total of 700mL infused. Site without discoloration or swelling. Patient was excorted to the car by nurse at 1111. Car driven by designated scoop driver. See Procedure /Sedation record. Comments: Post procedure instructions given to and reviewed with patient. Patient verbalizes understanding and agreement. Patient examined by Dr. Kumari prior to discharge * Ly Albaraod RN - 05/07/2023 11:09 AM EDT Goals: Patient will demonstrate effective coping techniques Possible barriers to meeting goals: None Stability of the patient: Moderately stable - low risk of patient condition declining or worsening Summary regarding today's goals: Met: Patient will demonstrate effective coping techniques * Ly Albarado RN - 05/07/2023 11:08 AM EDT 1105: Post recovery, patient was able to tolerate liquids by mouth, able to ambulate well to bathroom andvoid, and she was able to maintain stable vital signs.She is awake , alert and oriented and able tounderstand post sedation instructions.Patient examined by provider prior to discharge. Monitoring d/c when vs stable and per recovery protocol. * Amrita Cain RN - 05/07/2023 9:46 AM EDT Patient here for IVF. Has been npo since twenty one hundred the night before this procedure. Procedure reviewed with patient, questions answered. Reviewed with pt that we will need to start an IV andgive an antibiotic through the IV prior to the procedure. I reviewed the need to monitor her blood pressure, heart rate, respirations, and blood oxygenation level. We reviewed that during the IVF, light sedation and pain control medications (narcotics) will be given through the IV. Pt further identified with application of ID band for name and birthday. IV D5 1/2 NS started in left wrist with #22gauge one inch insyte autoguard. This IV was started at 9:25 by Abdirahman Cain RN Site without discolorat ion or swelling. This site observed q 15 minutes while infusing. Cefazolin one gram in 50 mL D5W hung to infuse piggyback to the main IV. Pt was examined by provider prior to sedation. Pt placed on monitoring for BP, pulse, O2 sat, and resp per protocol for conscious sedation. There is availabilityof necessary equipment. Patient states she is not alllergic to latex. VS q 5 minutes during procedure. Vs q 15 minutes post procedure until stable per recovery protocol. * Amrita Cain RN - 05/07/2023 9:13 AM EDT [facility] Nursing Care Plan ID is not set. 05/07/2023 Anxiety and Inadequate Coping Patient will demonstrate effective coping techniques. Assist with developing anxiety reducing processes. Collaborate with interdisciplinary team. Encourage active patient and caregiver participation in care. Identify patient coping skills and techniques. Initiate plan and interventions as ordered. Provide emotional support. Amrita Cain RN documented in this encounter Miscellaneous Notes * Sedation Note - June Kumari MD - 05/07/2023 10:47 AM EDT SEDATION NOTE Indication: The patient is a(n) 42 year old female with COH for oocyte retrieval under conscious sedation. Location: Fertility Sedating physician: Kenyetta Procedure physician: Kenyetta Procedure(s) Performed: Oocyte retrieval under conscious sedation Sedation was accomplished using fentanyl and versed administered as boluses and no continuous infusion. Any and all anesthetic medications were delivered under the direct supervision of a provider. Actual level of sedation: Moderate Patient tolerated procedure well. Vitals and oxygen saturations stable throughout. Adverse Outcome(s) during the procedure: None Sedation Start Time: 1007 Sedation End Time: 1030 Post Sedation Evaluation: Cardiovascular status: acceptable Level of consciousness: awake and alert Airway patency: patent Distress - NAD Hydration status - well hydrated Nausea/vomiting - not present Pain Evaluation Pain Assessment Flowsheet Row Most Recent Value [facility] 0-10 Pain Score 4 (moderate pain) Vital Signs: Temp: 36.5 C (97.7 F) (05/07 0918) BP: 109/69 (05/07 1040) Pulse: 91 (05/07 1040) Resp: 16 (05/07 1040) SpO2: 96 % (05/07 1040) I have personally examined the patient, prescribed the necessary medications as charted, and certify that Almita Hernandez is recovered for safe discharge from my face to face care. * Pre-Sedation Assessment - June Kumari MD - 05/07/2023 10:06 AM EDT PRE-SEDATION ASSESSMENT PRE-SEDATION ASSESSMENT: Level of sedation planned: Moderate Patient's allergies reviewed: Yes H&P Review / Interval Note Documentation: I have reviewed the H&P previously performed, examined the patient today, and there are no new findings. Difficulty with sedation / anesthesia: No Sleep apnea: No History of snoring: No History of difficult intubation: No Decreased ROM neck flexion/extension: No Tracheal deviation: No Decreased ability to open mouth / TMJ: No Loose teeth / dentures / partial: No Congenital deformities / abnormalities: No Dysphagia: No Mallampati Classification: I - soft palate, uvula, fauces, pillars visible Chest: Clear Heart: Regular Rhythm Adequate Vascular Access: Yes ASA Risk Stratification (Select One): ASA 1 - Healthy The patient was identified and the procedure verified: Yes The patient was reevaluated immediately prior to the sedation: 05/07/2023 10:06 AM documented in this encounter Plan of Treatment Upcoming Encounters Date Type Department Care Team (Late st Contact Info) Description 10/07/2023 10:00 AM EST Imaging Radiology [address] [place] [address] 12/11/2023 10:10 AM EST [facility] [address] [facility] [phone] Manasa Dickinson DO [address] [facility] [address] Scheduled Orders Name Type Priority Associated Diagnoses Orde r Schedule MOD SEDATION SAME PHYSICIAN/QHP INITIAL 15 MINS <5 YRS Procedures Routine Procreative management Ordered: 05/07/2023 MOD SEDATION SAME PHYSICIAN/QHP INIT 15 MINS 5 YRS & UP Procedures Routine Procreative management Ordered: 05/07/2023 MOD SEDATION SAME PHYSICIAN/QHP EACH ADDL 15 MIN Procedures Routine Procreative management Ordered: 05/07/2023 Health Maintenance Due Date Last Done Comments Hepatitis B (1 of 3 - 3-dose series) 1982 HPV/Co-Test 2012 COVID-19 Vaccine (2 - 2022-24 season) 2023 09/19/2021 Depression Screening 06/05/2023 06/05/2022 [...] as of this encounter Visit Diagnoses Diagnosis Procreative management- Primary Unspecified procreative management documented in this encounter Administered Medications Inactive Administered Medications - up to 3 most recent administrations Medication Order MAR Action Action Date Dose Rate Site ceFAZolin in dextrose (Ancef) ivpb 1 g 1 g, IV Piggyback, ONCE, 1 dose, On Stacy 05/07/23 at 0700 New Bag 05/07/2023 9:25 AM EDT 1 g 100 mL/hr D51/2 NSS infusion Intravenous, at 100 mL/hr, ONCE, 1 dose, On Stacy 05/07/23 at 0700 New Bag 05/07/2023 9:25 AM EDT 100 mL/hr 100 mL/hr fentaNYL (PF) inj 100 mcg 100 mcg, IV Push, ONCE, On Stacy 05/07/23 at 0700, For 1 dose, Initial dose of 50 mcg fentanyl IV push prior to procedure start wait 3-5 minutes, may give an additional 50 mcg of fentanyl. Hold if respirations <10 or etCO2 >45 mm/hg When given IV Push its recommended that the dose be given over 3 to 5 minutes. Given 05/07/2023 10:07 AM EDT 100 mcg ketorolac (Toradol) 30 MG/ML inj 30 mg 30 mg, IV Push, ONCE, On Stacy 05/07/23 at 0700, For 1 dose, Given 05/07/2023 9:50 AM EDT 30 mg midazolam (Versed) 2 MG/2ML inj 2 mg 2 mg, IV Push, ONCE, On Stacy 05/07/23 at 0700, For 1 dose, Initial dose of 2mg versed IV push prior to procedure start wait 3-5 minutes, may give an additional 1 mg versed. Hold if respirations <10 or etCO2 >45 mm/hg Given 05/07/2023 10:07 AM EDT 2 mg ondansetron (Zofran) inj 4 mg 4 mg, IV Push, ONCE, On Stacy 05/07/23 at 0700, For 1 dose Given 05/07/2023 9:35 AM EDT 4 mg documented in this encounter Advance Directives Latest Code Status on File Code Status Date Activated Date Inactivated Comments Full Code 08/23/2021 10:11 AM 08/23/2021 6:39 PM Th is order reflects the patients wishes and were consensually agreed upon. Care Teams Battery Container Tester Aluminum Relationship Specialty Start Date End Date Manasa Dickinson DO [address] [facility] [place] [address] PCP - General Family Medicine 11/11/19 documented as of this encounter
--- OUTSIDE RECORDS SUMMARY | 2024-02-20 10:44 | External Medical Summary | Summary of Care ---
Author Name Unknown Organization [facility] Address [address] [place] [address] Phone [phone] Care Team Providers Care Mrb Engineer Name Role Phone Manasa Dickinson Primary Care Provider Encounter Details Date Type Department Care Team (Late st Contact Info) Description 09/10/2023 8:30 AM EST Procedure Only [facility], [place] [address] [place] [address] [place], [facility] [address], [place] [id number] Female infertility* Allergies No known active allergiesdocumented as of this encounter (statuses as of 09/24/2023) Medications Medication Sig Dispensed Refills Start Date [...] as of this encounter (statuses as of 09/24/2023) Active Problems Problem Noted Date Diagnosed Date Normal body mass index (BMI) 01/20/2017 Mild episode of recurrent major depressive disor collins 01/20/2017 documented as of this encounter (statuses as of 09/24/2023) Immunizations Name Administration Dates Next Due COVID-19 mRNA, LNP-s, No Pre serve, 2-Dose Series ([email or web address]) 09/19/2021 Seasonal Influenza, PF, 6 M & [...] on file documented as of this encounter Functional Status Functional Status Response [...] No 07/17/2016 documented as of this encounter Plan of Treatment Upcoming Encounters Date Type Department Care Team (Late st Contact Info) Description 10/07/2023 10:00 AM EST Imaging Radiology [address] [place] [address] 12/11/2023 10:10 AM EST Office Visit [facility] [address] [place] [phone] Manasa Dickinson, [address] [place] [address] Health Maintenance Due Date Last Done Comments Hepatitis B (1 of 3 - 3-dose series) 1982 HPV/Co-Test 2012 COVID-19 Vaccine ( season) 2023 09/19/2021 Depression Screening 06/05/2023 06/05/2022 [...] as of this encounter Visit Diagnoses Diagnosis Female infertility- Primary Female infertility of unspecified origin documented in this encounter Advance Directives Latest Code Status on File Code Status Date Activated Date Inactivated Comments Full Code 08/23/2021 10:11 AM 08/23/2021 6:39 PM Th is order reflects the patients wishes and were consensually agreed upon. Care Teams Mrb Engineer Relationship Specialty Start Date End Date Manasa Dickinson DO [address] [place] [address] PCP - General Family Medicine 11/11/19 documented as of this encounter
--- OUTSIDE RECORDS SUMMARY | 2024-02-20 10:44 | External Medical Summary | Summary of Care ---
Author Name Unknown Organization [facility] Address [address] [place] [address] Phone [phone] Care Team Providers Care Coke Burner Name Role Phone Manasa Dickinson Primary Care Provider Reason for Visit * Reason Comments Procedure IVF Encounter Details Date Type Department Care Team (Late st Contact Info) Description 09/03/2022 7:30 AM EST Office Visit [facility] [address], [place] [id number] June Kumari MD [address] [place] [address] [facility] [address] [place] [address] [facility] [address] [place] [address] [facility] [employer] [address] [place] [address] Female infertility*; Procreative management Allergies No known active allergiesdocumented as of this encounter (statuses as of 09/15/2023) Medications Medication Sig Dispensed Refills Start Date End Date Status Dicyclomine HCl 10 MG Oral Capsule (Bentyl) Take 1 Capsule by mouth 2 times a day. 20 Capsule 0 09/11/20 21 Discontinued(Me dication List Clean Up) Sertraline HCl 100 MG Oral Tablet (Zoloft)Indicatio ns:Mild episode of recurrent major depressive disorder (HCC) Take by mouth 1 Tablet in the morning. 90 Tablet 1 06/05/20 22 023 Discontinued Norethin Charlie-Eth Estrad-FE 1.5-30 MG-MCG Oral Tablet (Loestrin Fe .03/03)Indication s:Intramural and submucous leiomyoma of uterus Take by mouth 1 Tablet in the morning. 84 Tablet 3 06/05/20 22 Discontinued(Me dication List Clean Up) Ganirelix Acetate 250 MCG/0.5ML Subcutaneous Solution Prefilled Syringe 250mcg subcutaneously daily 6 mL 1 07/10/20 22 022 Discontinued(Me dication List Clean Up) Follistim AQ 900 UNT/1.08ML Subcutaneous Solution (Follitropin Beta) 250 units subcutaneously daily 3 mL 1 07/10/20 22 Discontinued(Me dication List Clean Up) Menopur 75 UNIT Subcutaneous Solution Reconstituted (Menotropins) Mix with 0.5ml of saline and inject 75 units subcutaneously daily 5 Each 0 07/10/20 22 Discontinued(Me dication List Clean Up) Syringe Luer Slip 27G X 1/2" 1 ML As directed 10 Each 1 07/10/20 22 Discontinued(Me dication List Clean Up) Levonorgestrel-Et hinyl Estrad 0.1-20 MG-MCG Oral Tablet (Aviane) Take 1 tablet daily at bedtime 1 Each 1 07/10/20 22 Discontinued(Me dication List Clean Up) Leuprolide Acetate 1 MG/0.2ML Injection Kit (Lupron) 40 units subcutaneously once 1 Kit 0 07/10/20 22 Discontinued(Me dication List Clean Up) Levonorgestrel-Et hinyl Estrad 0.1-20 MG-MCG Oral Tablet (Vienva) Take by mouth 1 Tablet in the morning. 84 Each 3 07/14/20 22 022 Discontinued(Hi dication List Clean Up) Hospital, Clinic, or Other Facility Administered Medication Ordered Dose Route Frequency Start Date End Date Status ketorolac (Toradol) 30 MG/ML inj 30 mgIndications:Female infertility 30 mg IV PUSH ONCE 09/03/2022 09/03/2022 Ended D51/2 NSS infusionIndications:Femal e infertility 100 mL/hr IV ONCE 09/03/2022 09/03/2022 Ended ceFAZolin in dextrose (Ancef) ivpb 1 gIndications:Female infertility 1 g IVPB ONCE 09/03/2022 09/03/2022 Ended midazolam (Versed) 2 MG/2ML inj 2 mgIndications:Female infertility 2 mg IV PUSH ONCE 09/03/2022 09/03/2022 Ended fentaNYL (PF) inj 100 mcgIndications:Female infertility 100 mcg IV PUSH ONCE 09/03/2022 09/03/2022 Ended ondansetron (Zofran) inj 4 mgIndications:Female infertility 4 mg IV PUSH ONCE 09/03/2022 09/03/2022 Ended fentaNYL inj 25 mcgIndications:Female infertility 25 mcg IV PUSH ONCE 09/03/2022 09/03/2022 Ended documented as of this encounter (statuses as of 09/15/2023) Active Problems Problem Noted Date Diagnosed Date Normal body mass index (BMI) 01/20/2017 Mild episode of recurrent major depressive disor collins 01/20/2017 documented as of this encounter (statuses as of 09/15/2023) Immunizations Name Administration Dates Next Due COVID-19 mRNA, LNP-s, No Pre serve, 2-Dose Series (Cahootify) 09/19/2021 Seasonal Influenza, PF, 6 M & [...] Sign Reading Time Taken Comments Blood Pressure 132/91 09/03/2022 9:35 AM EST Pulse 100 09/03/2022 9:35 AM EST Temperature 36.5 C (97.7 F) 09/03/2022 7:50 AM ES T Respiratory Rate 14 09/03/2022 9:35 AM EST Oxygen Saturation 95% 09/03/2022 9:35 AM EST Inhaled Oxygen Concentration - - Weight 71.4 kg (157 lb 8 oz) 09/03/2022 7:50 AM EST Height 166.4 cm (5' 5.5") 09/03/2022 7:50 AM EST Body Mass Index 25.81 09/03/2022 7:50 AM EST documented in this encounter Functional [...] as of this encounter Progress Notes * Deanna Rosado LPN - 09/04/2022 8:20 AM EST Patient was contacted for Specialty HTN. 09/01/2022 (in office), 05/06/2022 (telemedicine) Care Gap Outreach Action Taken: Did not contact: After chart review outreach not indicated. Deanna Rosado LPN 09/04/2022 * June Kumari MD - 09/03/2022 9:12 AM EST PREOPERATIVE DIAGNOSIS: Infertility Status post superovulation for IVF POSTOPERATIVE DIAGNOSIS: Infertility Status post superovulation for IVF PROCEDURE: 1. Transvaginal ultrasound 2. Transvaginal oocyte aspiration SURGEON: June Kumari M.D. ANESTHESIA: IV sedation with Versed and Fentanyl OPERATIVE FINDINGS: Multiple follicles were seen on ultrasound bilaterally. SPECIMENS: Total # oocytes: 3 EBL: less than 25 cc COMPLICATIONS: None A ''time out'' was initiated by Dr Kumari at 0841 prior to procedure.The patient was identified by [...] guidance. This procedure was continued in a [id number] fashion until all follicles were aspirated. The needle was flushed between ovaries and then a similar procedure was performed on the other ovary (if 2 ovaries were present with follicles). Unable to access right ovary due to fibroid; ovary only visualized transabdominally. Following this, there was no evidence of active internal bleeding as could be determined by pelvic sonography and the vagina was checked for adequate hemostasis. Throughout the procedure the patient's vital signs and oxygen saturation were monitored and were stable. The patient tolerated the procedure well without complication. Sedation start: 841 Sedation last dose: 847 Procedure complete: 904 Qualified sedation observer: June Kumari M.D. * June Kumari MD - 09/03/2022 8:38 AM EST H&P unchanged. BP 121/76 | Pulse 77 | Temp 36.5 C (97.7 F) (Temporal Artery) | Resp 24 | Ht 1.664 m (5' 5.5") | Wt 71.4 kg (157 lb 8 oz) | SpO2 100% | BMI 25.81 kg/m | BSA 1.82 m Alert and oriented X 3. Procedure reviewed. IVF/PGT-A Donor sperm June Kumari M.D. * Ly Albarado RN - 09/03/2022 7:30 AM EST You will receive a call on 09/04/22, late AM, for fertilization check. Do not [...] questions or problems, Dr. Kumari's patients-please call [phone]. After hours, her phones are managed by the answering service-please leave a detailed message and call back number. Please remember that a blocked call may be your provider trying to reach you back. documented in this encounter Nursing Notes * Ly Albarado RN - 09/03/2022 10:03 AM EST Goals: Patient will demonstrate effective coping techniques Possible barriers to meeting goals: None Stability of the patient: Moderately stable - low risk of patient condition declining or worsening Summary regarding today's goals: Met: Patient was able to identify and utilize effective coping techniques * Ly Albarado RN - 09/03/2022 9:55 AM EST IV was d/c by Cornell Albarado RN at 0945. Total of 700mL infused. Site without discoloration or swelling. Patient was excorted to the car by nurse at 0955. Car driven by designated route driver coin machines. See Procedure /Sedation record. Comments: Post procedure instructions given to and reviewed with patient. Patient verbalizes understanding and agreement. Patient examined by Dr. Kumari prior to discharge. * Ly Albarado RN - 09/03/2022 9:40 AM EST Post recovery, patient was able to tolerate liquids by mouth, able to ambulate well to bathroom andvoid, and she was able to maintain stable vital signs.She is awake , alert and oriented and able tounderstand post sedation instructions.Patient examined by provider prior to discharge. Monitoring d/c when vs stable and per recovery protocol. * Amrita Cain RN - 09/03/2022 8:18 AM EST Patient here for IVF. Has been n[age] since [age] the night before this procedure. Procedure reviewed with patient, questions answered. Reviewed with pt that we will need to start an IV and give an antibiotic through the IV prior to the procedure. I reviewed the need to monitor her blood pressure, heart rate, respirations, and blood oxygenation level. We reviewed that during the IVF, lig t sedation and pain control medications (narcotics) will be given through the IV. Pt further identified with application of ID band for name and birthday. IV D5 1/2 NS started in left with #22 gauge one inch insyte autoguard. This IV was started at 8:05 by Cornell Albarado RN. Site without discoloration orswelling. This site observed q 15 minutes while infusing. Cefazolin one gram in 50 mL D5W hung to in fuse piggyback to the main IV. Pt was examined by provider prior to sedation. Pt placed on monitoring for BP, pulse, O2 sat, and resp per protocol for conscious sedation. There is availability of necessary equipment. Patient states she is not alllergic to latex. VS q 5 minutes during procedure. Vs q 15 minutes post procedure until stable per recovery protocol. * Amrita Cain RN - 09/03/2022 7:[address] [facility] Care Plan ID is not set. 09/03/2022 Anxiety and Inadequate Coping Patient will demonstrate effective coping techniques. Assist with developing anxiety reducing processes. Collaborate with interdisciplinary team. Encourage active patient and caregiver participation in care. Identify patient coping skills and techniques. Initiate plan and interventions as ordered. Provide emotional support. Amrita Cain RN documented in this encounter Miscellaneous Notes * Sedation Note - June Kumari MD - 09/03/2022 9:11 AM EST SEDATION NOTE Indication: The patient is a(n) [...] during the procedure: None Sedation Start Time: 841 Sedation End Time: 904 Post Sedation Evaluation: Cardiovascular status: acceptable Level of consciousness: awake and alert Airway patency: patent Distress - NAD Hydration status - well hydrated Nausea/vomiting - not present Pain Evaluation Pain Assessment Flowsheet Row Most Recent Value Pain Assessment Scale FLACC Pain Score 4 (moderate pain) FLACC Total 8 Vital Signs: Temp: 36.5 C (97.7 F) (09/03 0750) BP: 150/116 (09/03 905) Pulse: 137 (09/03 905) Resp: 28 (09/03 905) SpO2: 98 % (09/03 905) I have personally examined the patient, prescribed the necessary medications as charted, and certify that Almita Oronaerphil is recovered for safe discharge from my face to face care. * Pre-Sedation Assessment - June Kumari MD - 09/03/2022 8:39 AM EST PRE-SEDATION ASSESSMENT PRE-SEDATION ASSESSMENT: Level of sedation [...] was reevaluated immediately prior to the sedation: 09/03/2022 8:39 AM documented in this encounter Plan of Treatment Upcoming Encounters Date Type Department Care Team (Late st Contact Info) Description 10/07/2023 10:00 AM EST Imaging Radiology [facility] [address] [facility], [place] [address] [place] [id number] 12/11/2023 10:10 AM EST Office Visit [facility] [address] [facility], [place] [id number] Manasa Dickinson, DO [address] [facility], [place] [address] Scheduled Orders Name Type Priority Associated Diagnoses Orde r Schedule MOD SEDATION SAME PHYSICIAN/QHP INITIAL 15 MINS <5 YRS Procedures Routine Procreative management Ordered: 09/03/2022 MOD SEDATION SAME PHYSICIAN/QHP INIT 15 MINS 5 YRS & UP Procedures Routine Procreative management Ordered: 09/03/2022 MOD SEDATION SAME PHYSICIAN/QHP EACH ADDL 15 MIN Procedures Routine Procreative management Ordered: 09/03/2022 Health Maintenance Due Date Last Done Comments [...] infertility- Primary Female infertility of unspecified origin Procreative management Unspecified procreative management documented in this encounter Administered Medications Inactive Administered Medications - up to 3 most recent administrations Medication Order MAR Action Action Date Dose Rate Site ceFAZolin in dextrose (Ancef) ivpb 1 g 1 g, IV Piggyback, ONCE, 1 dose, On Thu09/03/22 at 0700 New Bag 09/03/2022 8:05 AM EST 1 g 100 mL/hr D51/2 NSS infusion Intravenous, at 100 mL/hr, ONCE, 1 dose, On Thu09/03/22 at 0700 New Bag 09/03/2022 8:05 AM EST 100 mL/hr 100 mL/hr fentaNYL (PF) inj 100 mcg 100 mcg, IV Push, ONCE, On Thu09/03/22 at 0700, For 1 dose, Initial dose of 50 mcg fentanyl IV push prior to procedure start wait 3-5 minutes, may give an additional 50 mcg of fentanyl. Hold if respirations <10 or etCO2 >45 mm/hg When given IV Push its recommended that the dose be given over 3 to 5 minutes. Given 09/03/2022 8:42 AM EST 100 mcg fentaNYL inj 25 mcg 25 mcg, IV Push, ONCE, On Thu09/03/22 at 1015, For 1 dose, When given IV Push its recommended that the dose be given over 3 to 5 minutes. Given 09/03/2022 8:48 AM EST 25 mcg ketorolac (Toradol) 30 MG/ML inj 30 mg 30 mg, IV Push, ONCE, On Thu09/03/22 at 0700, For 1 dose, Given 09/03/2022 8:20 AM EST 30 mg midazolam (Versed) 2 MG/2ML inj 2 mg 2 mg, IV Push, ONCE, On Thu09/03/22 at 0700, For 1 dose, Initial dose of 2mg versed IV push prior to procedure start wait 3-5 minutes, may give an additional 1 mg versed. Hold if respirations <10 or etCO2 >45 mm/hg Given 09/03/2022 8:42 AM EST 2 mg ondansetron (Zofran) inj 4 mg 4 mg, IV Push, ONCE, On Thu09/03/22 at 0700, For 1 dose Given 09/03/2022 8:25 AM EST 4 mg documented in this encounter Advance Directives Latest Code Status on File Code Status Date Activated Date Inactivated Comments Full Code 08/23/2021 10:11 AM 08/23/2021 6:39 PM Th is order reflects the patients wishes and were consensually agreed upon. Care Teams Coke Burner Relationship Specialty Start Date End Date Manasa Dickinson DO [address], [place] [id number] PCP - General Family Medicine 11/11/19 documented as of this encounter
--- OUTSIDE RECORDS SUMMARY | 2024-02-20 10:44 | External Medical Summary | Summary of Care ---
Author Name Unknown Organization [facility] Address [address] [place] [address] Phone [phone] Care Team Providers Care Profile Saw Setup Operator Name Role Phone Manasa Dickinson Primary Care Provider Reason for Visit * Reason Comments Procedure Encounter Details Date Type Department Care Team (Late st Contact Info) Description 10/29/2022 9:00 AM EST Office Visit Fertility, [place] [address], [place] [id number] June Kumari MD [address] [place] [address] [facility] [address] [place] [address] [facility] [address] [place] [address] [facility], [facility] [employer] [address] [place] [address] Female infertility* Allergies No known active allergiesdocumented as of this encounter (statuses as of 09/15/2023) Medications Medication Sig Dispensed Refills Start Date End Date Status Sertraline HCl 100 MG Oral Tablet (Zoloft)Indicatio ns:Mild episode of recurrent major depressive disorder (HCC) Take by mouth 1 Tablet in the morning. 90 Tablet 1 06/05/20 22 023 Discontinued Follistim AQ 900 UNT/1.08ML Subcutaneous Solution (Follitropin Beta) 250 units subcutaneously daily 2 mL 1 09/24/20 22 023 Discontinued(Re fill) Ganirelix Acetate 250 MCG/0.5ML Subcutaneous Solution Prefilled Syringe 250mcg subcutaneously daily 5 mL 1 09/24/20 22 023 Discontinued(Re fill) Leuprolide Acetate 1 MG/0.2ML Injection Kit (Lupron) 40 units subcutaneously once 1 Kit 0 09/24/20 22 023 Discontinued(Re fill) Menopur 75 UNIT Subcutaneous Solution Reconstituted (Menotropins) Mix with 0.5ml of saline and inject 75 units subcutaneously daily 5 Each 0 09/24/20 22 023 Discontinued(Re fill) Mirela VALENZUELA 1.5/30 1.5-30 MG-MCG Oral Tablet TAKE BY MOUTH 1 TABLET IN THE MORNING. Strength: 1.5-30 MG-MCG 28 Tablet 3 10/04/20 22 023 Discontinued(Re fill) Hospital, Clinic, or Other Facility Administered Medication Ordered Dose Route Frequency Start Date End Date Status D5/2 NSS infusionIndications:Femal e infertility 100 mL/hr IV ONCE 10/29/2022 10/29/2022 Ended ceFAZolin in dextrose (Ancef) ivpb 1 gIndications:Female infertility 1 g IVPB ONCE 10/29/2022 10/29/2022 Ended midazolam (Versed) 2 MG/2ML inj 2 mgIndications:Female infertility 2 mg IV PUSH ONCE 10/29/2022 10/29/2022 Ended fentaNYL (PF) inj 100 mcgIndications:Female infertility 100 mcg IV PUSH ONCE 10/29/2022 10/29/2022 Ended ondansetron (Zofran) inj 4 mgIndications:Female infertility 4 mg IV PUSH ONCE 10/29/2022 10/29/2022 Ended ketorolac (Toradol) 30 MG/ML inj 30 mgIndications:Female infertility 30 mg IV PUSH ONCE 10/29/2022 10/29/2022 Ended fentaNYL inj 25 mcgIndications:Female infertility 25 mcg IV PUSH ONCE 10/29/2022 10/29/2022 Ended documented as of this encounter (statuses as of 09/15/2023) Active Problems Problem Noted Date Diagnosed Date Normal body mass index (BMI) 01/20/2017 Mild episode of recurrent major depressive disor collins 01/20/2017 documented as of this encounter (statuses as of 09/15/2023) Immunizations Name Administration Dates Next Due COVID-19 mRNA, LNP-s, No Pre serve, 2-Dose Series (Sk[employer]) 09/19/2021 Seasonal Influenza, PF, 6 M & [...] Sign Reading Time Taken Comments Blood Pressure 120/77 10/29/2022 10:45 AM EST Pulse 97 10/29/2022 10:45 AM EST Temperature 36.7 C (98.1 F) 10/29/2022 9:18 AM ES T Respiratory Rate 16 10/29/2022 10:45 AM EST Oxygen Saturation 98% 10/29/2022 10:45 AM EST Inhaled Oxygen Concentration - - Weight 72.6 kg (160 lb) 10/29/2022 9:18 AM EST Height 166.4 cm (5' 5.5") 10/29/2022 9:18 AM EST Body Mass Index 26.22 10/29/2022 9:18 AM EST documented in this encounter Functional [...] Progress Notes * June Kumari MD - 10/29/2022 10:20 AM EST PREOPERATIVE DIAGNOSIS: Infertility Status post superovulation for IVF POSTOPERATIVE DIAGNOSIS: Infertility Status post superovulation for IVF PROCEDURE: 1. Transvaginal ultrasound 2. Transvaginal oocyte aspiration SURGEON: June Kumari M.D. ANESTHESIA: IV sedation with Versed and Fentanyl OPERATIVE FINDINGS: Multiple follicles were seen on ultrasound bilaterally. SPECIMENS: Total # oocytes: 8 EBL: less than 25 cc COMPLICATIONS: None A ''time out'' was initiated by Dr Kumari at 0959 prior to procedure.The patient was identified by [...] guidance. This procedure was continued in a [id number] fashion until all follicles were aspirated. The needle was flushed between ovaries; the right ovary was unable to be visualized due to fibroid. Following this, there was no evidence of active internal bleeding as could be determined by pelvic sonography and the vagina was checked for adequate hemostasis. Throughout the procedure the patient's vital signs and oxygen saturation were monitored and were stable. The patient tolerated the procedure well without complication. Sedation start: 1000 Sedation last dose: 1009 Procedure complete: 1017 Qualified sedation observer: June Kumari M.D. * June Kumari MD - 10/29/2022 9:41 AM EST H&P unchanged. BP 120/85 (BP Site: Right Arm, BP Position: Sitting, BP Cuff Size: Regular) | Pulse 73 | Temp 36.7 C (98.1 F) (Temporal Artery) | Resp 16 | Ht 1.664 m (5' 5.5") | Wt 72.6 kg (160 lb) | SpO2 100% | BMI 26.22 kg/m | BSA 1.83 m Alert and oriented X 3. Procedure reviewed. June Kumari M.D. * Ly Albarado RN - 10/29/2022 9:00 AM EST You will receive a call on 10/30/22, late AM, for fertilization check. Do not [...] questions or problems, Dr. Kumari's patients-please call [phone]. After hours, her phones are managed by the answering service-please leave a detailed message and call back number. Please remember that a blocked call may be your provider trying to reach you back. 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: No History of STD No Past Medical History: Diagnosis Date Depression Past Surgical History: Procedure Laterality Date EGD, W/ENDOSCOPIC US 09/10/2021 gastritis, CBD stones / ESOPHAGOGASTRODUODENOSCOPY (EGD), FLEXIBLE, TRANSORAL, ENDOSCOPIC ULTRASOUND performed by Rommel Gipson DO at ENDOSCOPY [facility] ERCP, DIAGNOSTIC, SPECIMEN COLLECTION 09/10/2021 choledocholithiasis, stent placed / ENDOSCOPIC RETROGRADE CHOLANGIOPANCREATOGRAPHY (ERCP) DIAGNOSTIC performed by Rommel Gipson DO at ENDOSCOPY [facility] LAPAROSCOPY, CHOLECYSTECTOMY WITH CHOLANGIOGRAPHY N/A 08/23/2021 LAPAROSCOPY, CHOLECYSTECTOMY WITH CHOLANGIOGRAPHY 08/23/2021 LAPAROSCOPIC CHOLECYSTECTOMY WITH CHOLANGIOGRAM performed by Wilton Canseco MD at [facility] SH: Tobacco:No FH: Breast ca [...] documented in this encounter Nursing Notes * Urmila Wynn RN - 10/29/2022 11:11 AM EST Patient here for IVF. Has been npo since midnight the night before this procedure. Procedure reviewed with patient. Questions answered. Reviewed with pt that we will need to start an IV and give an antibiotic through the IV one hour prior to the procedure. I reviewed the need to monitor her blood pressure, heart rate, respirations, and blood oxygenation level per'' clip'' on her index finger. We reviewed that during the IVF, light sedation and pain controll medicines (narcotics) will be given through the IV. Pt further identified with application of ID band for name and medical record number and allergy band if needed. IV D 5 1/2 nss started in right forearm with 22 gauge one inch insyte autoguard. IV rate set to infuse at 100 ml/hr.This IV was started at 0945 Site without discoloration or swelling. This site observed q 15 minutes while infusing . Cefazolin One gram in 50 ml nss hung toinfuse piggyback to the main iv -given over 20 minutes. Given one hour prior to the procedure.Patient was examined by provider prior to sedation. Patient placed on monitoring for BP, pulse, O2 sat, and resp per protocol for conscious sedation. VS q 5 minutes during procedure. Vs q 15 minutes post procedure until stable per recovery protocol. Post recovery, patient was able to tolerate liquids by mouth, able to ambulate well to bathroom andvoid, and she was able to maintain stable vital signs.She is awake , alert and oriented and able tounderstand post sedation instructions.Patient examined by provider prior to discharge. Monitoring d/c when vs stable and per recovery protocol. IV was d/c . At 1100 Total of 1000 infused. Site without discoloration or swelling. Patient was excorted to the car by nurse at 1112.Car driven by designated cdl company driver. See Procedure /Sedation record. Comments:Patient verbalized understanding and ok w/ this.Patient given a handout with all these instructions. Goals: pain control, decreased anxiety Possible barriers to meeting goals: none Stability of the patient: Moderately stable - low risk of patient condition declining or worsening Summary regarding today's goals: Met: pT MET GOALS * Urmila Wynn RN - 10/29/2022 9:25 AM EST [facility] Care Plan ID is not set. 10/29/2022 Anxiety and Inadequate Coping Patient will maintain manageable anxiety level. Assess and monitor patient's anxiety level. ALTERATION IN FLUID BALANCE Activity Intolerance and Impaired Mobility Patient will maintain optimal mobility and activity level. Assess and monitor barriers to mobility. Urmila Wynn RN * Urmila Wynn RN - 10/29/2022 9:24 AM EST documented in this encounter Miscellaneous Notes * Sedation Note - June Kumari MD - 10/29/2022 10:19 AM EST SEDATION NOTE Indication: The patient is a(n) 42 year old female with COH for oocyte retrieval. Location: Fertility Sedating physician: Kenyetta Procedure physician Kenyetta Procedure(s) Performed: Oocyte retrieval under conscious sedation Sedation was accomplished using fentanyl and versed administered as boluses and no continuous infusion. Any and all anesthetic medications were delivered under the direct supervision of a provider. Actual level of sedation: Moderate Patient tolerated procedure well. Vitals and oxygen saturations stable throughout. Adverse Outcome(s) during the procedure: None Sedation Start Time: 1000 Sedation End Time: 1016 Post Sedation Evaluation: Cardiovascular status: acceptable Level of consciousness: awake and alert Airway patency: patent Distress - NAD Hydration status - well hydrated Nausea/vomiting - not present Pain Evaluation Pain Assessment Flowsheet Row Most Recent Value Pain Assessment Scale FLACC Pain Score 2 (mild pain) FLACC Total 5 Vital Signs: Temp: 36.7 C (98.1 F) (10/29 0918) BP: 137/93 (10/29 1010) Pulse: 99 (10/29 1010) Resp: 18 (10/29 1010) SpO2: 97 % (10/29 1009) I have personally examined the patient, prescribed the necessary medications as charted, and certify that Almita Oronaerphil is recovered for safe discharge from my face to face care. * Pre-Sedation Assessment - June Kumari MD - 10/29/2022 9:08 AM EST PRE-SEDATION ASSESSMENT PRE-SEDATION ASSESSMENT: Level [...] was reevaluated immediately prior to the sedation: 10/29/2022 9:57 AM documented in this encounter Plan of Treatment Upcoming Encounters Date Type Department Care Team (Late st Contact Info) Description 10/07/2023 10:00 AM EST Imaging Radiology [facility] [address] [facility] [place] [address] [place] [address] 12/11/2023 10:10 AM EST Office [facility] [place] [address] [facility] [phone] Manasa Dickinson DO [address] [facility] [address] Scheduled Orders Name Type Priority Associated Diagnoses Orde r Schedule MOD SEDATION SAME PHYSICIAN/QHP INIT 15 MINS 5 YRS & UP Procedures Routine Female infertility Ordered: 10/29/2022 Health Maintenance Due Date Last Done Comments [...] of unspecified origin documented in this encounter Administered Medications Inactive Administered Medications - up to 3 most recent administrations Medication Order MAR Action Action Date Dose Rate Site ceFAZolin in dextrose (Ancef) ivpb 1 g 1 g, IV Piggyback, ONCE, 1 dose, On Thu10/29/22 at 0700 New Bag 10/29/2022 9:40 AM EST 1 g 100 mL/hr D51/2 NSS infusion Intravenous, at 100 mL/hr, ONCE, 1 dose, On Thu10/29/22 at 0700 New Bag 10/29/2022 9:40 AM EST 100 mL/hr 100 mL/hr fentaNYL (PF) inj 100 mcg 100 mcg, IV Push, ONCE, On Thu10/29/22 at 0700, For 1 dose, Initial dose of 50 mcg fentanyl IV push prior to procedure start wait 3-5 minutes, may give an additional 50 mcg of fentanyl. Hold if respirations <10 or etCO2 >45 mm/hg When given IV Push its recommended that the dose be given over 3 to 5 minutes. Given 10/29/2022 10:00 AM EST 100 mcg fentaNYL inj 25 mcg 25 mcg, IV Push, ONCE, On Thu10/29/22 at 1100, For 1 dose, When given IV Push its recommended that the dose be given over 3 to 5 minutes. Given 10/29/2022 10:09 AM EST 25 mcg ketorolac (Toradol) 30 MG/ML inj 30 mg 30 mg, IV Push, ONCE, On Thu10/29/22 at 0700, For 1 dose, Given 10/29/2022 9:50 AM EST 30 mg midazolam (Versed) 2 MG/2ML inj 2 mg 2 mg, IV Push, ONCE, On Thu10/29/22 at 0700, For 1 dose, Initial dose of 2mg versed IV push prior to procedure start wait 3-5 minutes, may give an additional 1 mg versed. Hold if respirations <10 or etCO2 >45 mm/hg Given 10/29/2022 10:00 AM EST 2 mg ondansetron (Zofran) inj 4 mg 4 mg, IV Push, ONCE, On 1/25/23 at 0700, For 1 dose Given 10/29/2022 9:49 AM EST 4 mg documented in this encounter Advance Directives Latest Code Status on File Code Status Date Activated Date Inactivated Comments Full Code 08/23/2021 10:11 AM 08/23/2021 6:39 PM Th is order reflects the patients wishes and were consensually agreed upon. Care Teams Profile Saw Setup Operator Relationship Specialty Start Date End Date Manasa Dickinson DO [address] [place] [address] PCP - General Family Medicine 11/11/19 documented as of this encounter
--- OUTSIDE RECORDS SUMMARY | 2024-02-20 10:44 | External Medical Summary | Summary of Care ---
Author Name Unknown Organization [facility] Address [address] [place] [address] Phone [phone] Care Team Providers Care Diversified Crops Farmer Name Role Phone Manasa Dickinson Primary Care Provider [phone] Encounter Details Date Type Department Care Team (Late st Contact Info) Description 02/23/2023 1:00 PM EDT Office Visit Fertility, [place] [address] [place] [address] June Kumari MD [address] [place] [address] [place] [address] Fert Clerk Rating [address] [place] [address] Female infertility* Allergies No known active allergiesdocumented [...] 3 12/15/2022 06/12/20 23 Discontinu ed(Refill) Mirela FE 1.5/30 1.5-30 MG-MCG Oral Tablet TAKE BY MOUTH 1 TABLET IN THE MORNING. Strength: 1.5-30 MG-MCG 84 Tablet 3 12/15/2022 06/12/20 23 Discontinu ed(Refill) documented as of this encounter (statuses as of 09/15/2023) Active Problems Problem Noted Date Diagnosed Date Normal body mass index (BMI) 01/20/2017 Mild episode of recurrent major depressive disor collins 01/20/2017 documented as of this encounter (statuses as of 09/15/2023) Immunizations Name Administration Dates Next Due COVID-19 mRNA, LNP-s, No Pre serve, 2-Dose Series ([employer].) 09/19/2021 Seasonal Influenza, PF, 6 M & [...] Progress Notes * June Kumari MD - 02/23/2023 1:00 PM EDT IVF/PGT-A Donor sperm Patient was here for a transvaginal U/S performed by Manasa Little RDMS. IVF scan. Hx: large fundalfibroid. Endometrial Linin.8mm; Rt ov follicles: 25,23,22,18,18,17,17,16,15,15,15mm; difficultto visualize follicles transvaginally so follicles were measured transbdominally. Lt ov follicles: 1 6,16,15,15,15,14,13mm (N97.9) Female infertility (primary encounter diagnosis) Plan: Ultrasound results reviewed E2 pending June Kumari M.D. documented in this encounter Nursing Notes * Manasa Little RDMS - 02/23/2023 3:34 PM EDT Patient was here for a transvaginal U/S performed by Manasa Little RDMS. IVF scan. Hx: large fundalfibroid. Endometrial Linin.8mm; Rt ov follicles: 25,23,22,18,18,17,17,16,15,15,15mm; difficultto visualize follicles transvaginally so follicles were measured transbdominally. Lt ov follicles: 1 6,16,15,15,15,14,13mm documented in this encounter Plan of Treatment Upcoming Encounters Date Type Department Care Team (Late st Contact Info) Description 10/07/2023 10:00 AM EST Imaging Radiology [address] [facility] [place] [address] 12/11/2023 10:10 AM EST Office Visit [facility] [address] [place] [address] Manasa Dickinson, [address] [place] [address] Health Maintenance Due Date Last Done Comments [...] and were consensually agreed upon. Care Teams Diversified Crops Farmer Relationship Specialty Start Date End Date Manasa Dickinson DO [address] [place] [facility] [place] [address] PCP - General Family Medicine 11/11/19 documented as of this encounter
--- OUTSIDE RECORDS SUMMARY | 2024-02-20 10:44 | External Medical Summary | Summary of Care ---
Author Name Unknown Organization [facility] Address [address] [place] [address] Phone [phone] Care Team Providers Care Animal Keeper Head Name Role Phone BrigidoManasa melissa Primary Care Provider [phone] Encounter Details Date Type Department Care Team (Late st Contact Info) Description 09/21/2023 Orders Only Outcomes Research Department [address], [place] [address] Dasha Agee CHRA [employer] [place] Research Other*[id number] Allergies No known active allergiesdocumented as of this encounter (statuses as of 09/21/2023) Medications Medication Sig Dispensed Refills Start Date [...] as of this encounter (statuses as of 09/21/2023) Active Problems Problem Noted Date Diagnosed Date Normal body mass index (BMI) 01/20/2017 Mild episode of recurrent major depressive disor collins 01/20/2017 documented as of this encounter (statuses as of 09/21/2023) Immunizations Name Administration Dates Next Due COVID-19 mRNA, LNP-s, No Pre serve, 2-Dose Series (Pfizer) 09/19/2021 Seasonal Influenza, PF, 6 M & [...] Description 10/07/2023 10:00 AM EST Imaging Radiology [address], [place] [address] [facility] [place] [address] 12/11/2023 10:10 AM EST Office Visit [facility] [address] [facility] [phone] Manasa Dickinson [address] [facility] [address] Scheduled Orders Name Type Priority Associated Diagnoses Orde r Schedule MYCODE SUBSEQUENT ADULT Lab Routine [employer] Research Other*[id number] Every 6 Months for 2 Occurrences starting 09/21/2023 until 10/10/2024 Health Maintenance Due Date Last Done Comments Hepatitis B (1 of 3 - 3-dose series) 1982 HPV/Co-Test 2012 COVID-19 Vaccine (2 2022- season) 2023 09/19/2021 Depression Screening 06/05/2023 [...] as of this encounter Visit Diagnoses Diagnosis [employer] Other*[id number] documented in this encounter Advance Directives Latest Code Status on File Code Status Date Activated Date Inactivated Comments Full Code 08/23/2021 10:11 AM 08/23/2021 6:39 PM Th is order reflects the patients wishes and were consensually agreed upon. Care Teams Animal Keeper Head Relationship Specialty Start Date End Date Manasa Dickinson DO [address] [facility] [place] [address] PCP - General Family Medicine 11/11/19 documented as of this encounter
--- OUTSIDE RECORDS SUMMARY | 2024-02-20 21:15 | External Medical Summary | Summary of Care ---
Author Name Unknown Organization [facility] Address [address] [place] [address] Phone [phone] Care Team Providers Care Nurse Staff Industrial Name Role Phone BrigidoManasa melissa Primary Care Provider [phone] Encounter Details Date Type Department Care Team (Late st Contact Info) Description 02/19/2024 Result Scan Unspecified Department <No scans attached> Allergies No known active allergiesdocumented as of this encounter (statuses as of 02/19/2024) Medications Medication Sig Dispensed Refills Start Date End Date Status Mirela NICOLAS 1.5-30 MG-MCG Oral TabletIndications:Men orrhagia with irregular [...] as of this encounter (statuses as of 02/19/2024) Active Problems Problem Noted Date Diagnosed Date Normal body mass index (BMI) 01/20/2017 Mild episode of recurrent major depressive disor collins 01/20/2017 documented as of this encounter (statuses as of 02/19/2024) Immunizations Name Administration Dates Next Due COVID-19 mRNA, LNP-s, No Pre serve, 2-Dose Series ([employer]) 09/19/2021 Seasonal Influenza, PF, 6 M & [...] 03/09/2024 1:30 PM EDT Office Visit Gynecology/Obstetrics [facility] [address] [place] [address] Mini Abraham MD [address] [place] [address] Health Maintenance Due Date Last Done Comments [...] Procedure Name Priority Date/Time Associated Diagnosis Comments OUTSIDE LAB RESULTS 02/19/2024 documented in this encounter Results * OUTSIDE LAB RESULTS (02/19/2024) 02/19/2024 No Physician Data Unknown LABORATORY documented in this encounter Advance Directives Latest Code Status on File Code Status Date Activated Date Inactivated Comments Full Code 08/23/2021 10:11 AM 08/23/2021 6:39 PM Th is order reflects the patients wishes and were consensually agreed upon. Care Teams Nurse Staff Industrial Relationship Specialty Start Date End Date Manasa Dickinson DO [address] [place] [address] PCP - General Family Medicine 11/11/19 documented as of this encounter
== END 2024-02-20 12:45 | disposition home or self-care (01) ==
LOC: 4E1 08:18 → ASU 08:18

== ENCOUNTER 2025-06-21 08:38 | Inpatient (IN) ==
[2025-06-21] MEDS ORDERED: ACETAMINOPHEN 325 MG TAB PO PRN (08:58)
[2025-06-21] MEDS ORDERED: LIDOCAINE 1% LOCAL 20 ML VIAL INFIL PRN (08:58)
[2025-06-21] MEDS ORDERED: MAG SULFATE 50% 1GM/2ML 10ML VIAL IV ONE (08:58)
[2025-06-21] MEDS ORDERED: CALCIUM CARBONATE 500 MG CHEWABLE TAB PO PRN (08:58)
[2025-06-21] MEDS: BETAMETH SOD PHOS/ACETATE IA 6 MG/ML IM STA (09:12)
[2025-06-21] MEDS: LACTATED RINGER'S 1,000 ML IV PRN (09:21)
--- NOTE | 2025-06-21 09:21 | History & Physical Report ---
Date of Service June 21, 2025 Assessment & Plan (1) premature rupture of membranes: Plan: 44-year-old G1, P0 at 32 weeks and 4 days of gestation presenting today premature rupture of membranes, confirmed with speculum exam, Vital signs stable afebrile, heart rate reassuring, History of myomectomy, recommended delivery plan, Admit, monitor, labs, start betamethasone series for lung maturation, IV magnesium for tocolysis and neuroprotection, antibiotics, patient understand no NICU for premature epidural here at [facility] discussed transfer to tertiary [facility] where NICU is available, patient desires to go to [facility] in [place], Call was placed to [facility] awaiting the response, Continue to monitor closely. (2) Advanced maternal age, primigravida: (3) conceived through in vitro fertilization: (4) IUGR (intrauterine growth restriction): (5) History of uterine myomectomy or hysterotomy: (6) Depression affecting in third trimester, antepartum: History of Present Illness Chief Complaint: Leaking amniotic fluids Primary Care Provider: Manasa Dickinson DO Patient 44 yo at 32.4 wks who started to leak fluids at 07:15 am, she has had a big gush and then constant trickling since then. It has been clear. She has not has pain nor contractions but now stareting to feel crampy. Denies VB/ fever/ chills/ MORGAN/ Change in vision/ N&V Reports good movement. Her has been complicated by, 1. AMA, IVF with PGT-A 2. history of myomectomy, open surgery for multiple fibroids at [facility] on February 2024 requires delivery, 3. Depression during managed by Zoloft, 4. severe IUGR, less than 2nd percentile for EFW, BPP and uterine artery Dopplers have been within normal limits. Allergies Allergy/AdvReac Type Severity Reaction Status Date / Time No Known Allergies Allergy Verified 02/19/24 08:34 Home Medications Medication Instructions Recorded Confirmed Type sertraline 100 mg tablet (Zoloft) 100 mg PO HS 11/23/20 02/19/24 History calcium carbonate (Tums) 400 mg PO DIRECTED PRN 08/11/21 02/04/24 History HEARTBURN/INDIGESTION norethindrone 1.5 mg-ethinyl 1 tab PO HS 08/11/21 02/19/24 History estradiol 30 mcg(21)/iron 75 mg(7) tablet (Junel FE .03/03 (28)) Patient History Medical History (Updated 06/21/25 @ 09:19 by Juvencio Erickson MD) History of COVID-19 07/2021, not hosp; moderate [id number] and joint aches>resolved 05/2023, not hosp; mild symptoms>resolved Depression Surgical History (Updated 06/21/25 @ 09:19 by Juvencio Erickson MD) History of egg donation x3, egg retrievals Hx laparoscopic cholecystectomy History of esophagogastroduodenoscopy (EGD) History of wisdom tooth extraction Family History Mother Dyslipidemia Hypertension Father Hypertension Grandmother (Paternal) Hypertension Grandmother (Maternal) Diabetes Heart disease Denies family history of Ovarian cancer Breast cancer Colorectal cancer Social History (Updated 02/19/21 @ 14:35 by Amrita Melissa) Smoking Status: Never smoker Second Hand Exposure: No; Do You Dip or Chew Tobacco: No; Hx Alcohol Use: Yes Alcohol type: beer Hx Substance Use: Yes Last Used Substance Other:: couple times in college only Preferred Language: Stateless Communication Ability: Effective Contact Lens Assistant Required: No Beliefs That Will Affect Care: None Current Living Situation: Spouse Feels Safe at Home: Yes 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 History no history of STDs, no history of chlamydia, gonorrhea, herpes Review of Systems as per Subjective / HPI Physical Exam Constitutional: WD/WN, vitals as above well developed and well nourished Gastrointestinal (Abdomen): normal bowel sounds, soft, nontender, no hepatosplenomegaly ( gravid) Genitourinary: normal external appearance Speculum/Bimanual Exam: normal appearance of the vagina ( pooling seen grossly ruptured, nitrazine positive) and normal appearance of the cervix OB Exam Abdomen: + vertex Manual OB Exam: + cervical dilation 1 cm, + cervical effacement 30% and + station -1 OB Exam Monitor Tracing: + external uterine monitor used and + category I bedside ultrasound, vertex, placenta anterior, heart rate 140s Results & Data Vital Signs (Past 12 Hours) Vital Signs Pulse BP 06/21/25 08:50 76 114/74 (1) premature rupture of membranes PROM onset of labor timing: unspecified duration between rupture of membranes and onset of labor Qualified Code(s): O42.919 - premature rupture of membranes, unspecified as to length of time between rupture and onset of labor, unspecified trimester (2) Advanced maternal age, primigravida Trimester: third trimester Qualified Code(s): O09.513 - Supervision of elderly primigravida, third trimester (3) conceived through in vitro fertilization Trimester: third trimester Qualified Code(s): O09.813 - Supervision of resulting from assisted reproductive technology, third trimester
[2025-06-21 09:24] VITALS: RESP 18
[2025-06-21] MEDS: AZITHROMYCIN 250 MG TAB PO ONE (09:25)
[2025-06-21] MEDS: MAGNESIUM SULFATE / WTR 40 GM/1,000 ML BAG IV SCH (09:30)
[2025-06-21] MEDS: AMPICILLIN 2,000 MG in SODIUM CHLOR 0.9% MINI-B 100 ML IV SCH (09:35)
[2025-06-21 10:09] VITALS: TEMP 98.2
[2025-06-21 10:18] LABS: Hematocrit (blood only) 35.8 % (37.0-47.0); Hemoglobin 11.9 g/dl (12.0-16.0); Immature Granulocytes # (auto) 0.45 K/uL (0.01-0.20); Immature Granulocytes % (auto) 3.9 %; Mean Corpuscular Hemoglobin 29.5 pg (25.0-34.0); Mean Corpuscular Volume 88.6 fL (80.0-100.0); Platelet Count 152 K/uL (130-400); RDW Standard Deviation 44.6 fL (36.4-46.3); Red Blood Count 4.04 M/uL (4.20-5.40); White Blood Count 11.46 K/ul (4.8-10.8)
[2025-06-21 10:36] VITALS: BP 125/78
[2025-06-21 10:37] VITALS: O2SAT 100
[2025-06-21 10:37] LABS: Alanine Aminotransferase 16.0 U/L (7-52); Albumin Globulin Ratio 1.1 (0.9-2); Alkaline Phosphatase 59.0 U/L (34-104); Anion Gap 8.0 (3-11); Bilirubin,Total 0.4 mg/dl (0.2-1.0); Blood Urea Nitrogen 8.0 mg/dl (6-23); Calcium 8.7 mg/dl (8.6-10.3); Carbon Dioxide 22.0 mmol/L (21-32); Chloride 106.0 mmol/L (98-107); Creatinine Clr Calc Pharmacy 151.6 ml/min; Globulin 3.0 gm/dl (2.5-4.0); Glucose 92.0 mg/dl (70-99(Fasting)); Potassium 3.6 mmol/L (3.5-5.1); Sodium 136.0 mmol/L (136-145); Total Protein 6.2 gm/dl (6.0-8.3)
[2025-06-21 10:42] VITALS: PULSE 86
--- NOTE | 2025-06-21 10:44 | Obstetrical Progress Note ---
Date of Service June 21, 2025 Assessment & Plan Admission and Anticipated Discharge Date Admission Date: June 21, 2025 Subjective Patient is reevaluated. Feels well, mild contractions q 5-7 min, palpate mild Awaiting helicopter, EAT in 5 minutes FHR categ I IV magnesium running Continue to monitor closely All questions were answered. Results & Data Vital Signs (Past 12 Hours) Vital Signs Temp Pulse Resp BP Pulse Ox O2 Del Method 06/21/25 10:41 86 100 06/21/25 10:36 89 100 06/21/25 10:35 82 125/78 06/21/25 10:31 84 96 06/21/25 10:26 87 98 06/21/25 10:21 75 98 06/21/25 10:20 80 116/71 06/21/25 10:16 76 97 06/21/25 10:11 78 94 06/21/25 10:08 18 06/21/25 10:08 36.8 C 78 18 95 06/21/25 10:06 74 98 06/21/25 10:05 81 108/63 06/21/25 10:01 78 97 06/21/25 09:56 78 93 06/21/25 09:51 85 92 06/21/25 09:50 75 108/63 06/21/25 09:48 76 90 06/21/25 09:46 76 91 06/21/25 09:41 71 95 06/21/25 09:36 82 94 06/21/25 09:01 36.7 C 76 18 114/74 Room Air 06/21/25 08:50 76 114/74
[2025-06-21 11:47] LABS: Appearance Urine Turbid (Clear); Glucose Urine UA Negative (Negative)
[2025-06-21 12:00] LABS: Epithelial Cell Urine >20 /hpf (0-2)
[2025-06-21] MEDS ORDERED: AMPICILLIN SOD 1 GM VIAL IV SCH (12:00)
== END 2025-06-21 11:05 | disposition short-term general hospital (02) | DRG 833 ==
LOC: OPB 08:38 → 4S1 08:42